=== PATIENT | male | born 1940 | race Caucasian/White ===

== ENCOUNTER → 2016-08-24 | Outpatient (CLI) | payer MEDICARE ==
[~2016-08-24] MED LIST: ALB0.5V IH; AMIO400T5 PO; APIX5TAB2 PO; ASP325T PO; ASP81CT PO; ATOR10TA PO; AZIT500T PO; BENZ-13 PO; BUDE1AMP IH; CLOP75TA PO; DRON400T PO; FOLI0.4T2 PO; HYDR-2997 PO; LISI-594 PO; METH4TAB PO; METO50TA7 PO; MULT-418 PO; OMG1KC PO; RT-ALBUTEROL SULF 2.5 MG/3 ML PRE-MIX VIAL INH ONE
== END ==
LOC: RT 09:59
PROVIDERS: ATTEND Nurse Practitioner
DX: R05 Cough (principal)
CPT/HCPCS: 94060; 94640; 94726; 94729

== ENCOUNTER 2017-02-25 12:22 | Emergency (ER) | payer MEDICARE ==
[~2017-02-25] VITALS: Ht 177.8 cm; Wt 72.6 kg
[~2017-02-25 12:22] MED LIST changes: -RT-ALBUTEROL SULF 2.5 MG/3 ML PRE-MIX VIAL INH ONE
[2017-02-25] MEDS ORDERED: NS IV 1000 ML 1,000 ML IV ONE (13:27)
[2017-02-25] MEDS ORDERED: morphine INJ 10 MG/ML 1ML (SYR OR VIAL) IVP STA (13:27)
[2017-02-25 13:38] LABS: BASOPHILS % (AUTO) 0 % (0-10); EOSINOPHILS # (AUTO) 0.5 10^3/uL (0.0-0.3); EOSINOPHILS % (AUTO) 6 % (0-10); LYMPHOCYTES # (AUTO) 1.2 X 10^3 (1.0-4.0); LYMPHOCYTES % (AUTO) 15 % (12-44); MEAN CORPUSCULAR HEMOGLOBIN 32 PG (25-34); MEAN CORPUSCULAR HGB CONC 34 G/DL (32-36); MEAN CORPUSCULAR VOLUME 97 FL (80-99); MEAN PLATELET VOLUME 9.8 FL (7.4-10.4); MONOCYTES # (AUTO) 0.7 X 10^3 (0.0-1.0); MONOCYTES % (AUTO) 8 % (0-12); NEUTROPHILS # (AUTO) 5.7 X 10^3 (1.8-7.8); NEUTROPHILS % (AUTO) 70 % (42-75); PLATELET COUNT 199 10^3/uL (130-400); RED BLOOD COUNT 4.41 10^6/uL (4.35-5.85); RED CELL DISTRIBUTION WIDTH 13.5 % (10.0-14.5)
[2017-02-25 13:56] LABS: ALANINE AMINOTRANSFERASE 13 U/L (0-55); ALBUMIN 3.9 GM/DL (3.2-4.5); ANION GAP 9 MMOL/L (5-14); ASPARTATE AMINO TRANSFERASE 15 U/L (5-34); BILIRUBIN,TOTAL 1.4 MG/DL (0.1-1.0); BLOOD UREA NITROGEN 26 MG/DL (7-18); BUN/CREATININE RATIO 25; CALCIUM 9.1 MG/DL (8.5-10.1); CARBON DIOXIDE 21 MMOL/L (21-32); CHLORIDE 108 MMOL/L (98-107); CREATININE SERUM 1.04 MG/DL (0.60-1.30); GFR ESTIMATED > 60; GLUCOSE 108 MG/DL (70-105); POTASSIUM 4.6 MMOL/L (3.6-5.0); SODIUM 138 MMOL/L (135-145); TOTAL PROTEIN 7.1 GM/DL (6.4-8.2)
--- NOTE | 2017-02-25 13:56 | ED GU-Male ---
General Chief Complaint: Abdominal/GI Problems Stated Complaint: HERNIA Nursing Triage Note: PT C/O RIGHT INGUINAL HERNIA, PAIN BECOMING SEVERE 2 HOURS AGO. Source: patient, other (Dr. Armstrong) Exam Limitations: no limitations History of Present Illness Time seen by provider: 13:12 Initial Comments 77-year-old male patient presents to the emergency Department with reports of right inguinal hernia. Patient states the hernia has been present for several years, but he has always been able to reduce it. 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 Unable to reduce the hernia. Timing/Duration: constant, other (2 hours prior to arrival) Location: groin (right groin) Radiation: scrotal Activities at Onset: none Prior Genitourinary Problems: similar symptoms Modifying Factors: Worsens With Movement, Worsens With Palpation Allergies and Home Medications Allergies Coded Allergies: ticlopidine (Verified Allergy, Unknown, 08/20/06) Home Medications Albuterol Sulfate 2.5 Mg/0.5 Ml Vial.neb, 2.5 MG IH Q4H, #1 Prescribed by: SISI ALCALA on 07/16/15126 Apixaban 5 Mg Tablet, 5 MG PO, (Reported) Aspirin 325 Mg Tab, 325 MG PO DAILY, (Reported) Atorvastatin Calcium 10 Mg Tablet, 5 MG PO DAILY, (Reported) Azithromycin 500 Mg Tablet, 500 MG PO DAILY, #5 FOR INFECTION Prescribed by: SISI ALCALA on 07/16/15126 Benzonatate 100 Mg Capsule, 1-2 TAB PO TID, #30 Prescribed by: SISI ALCALA on 07/16/15 012 Budesonide 1 Mg/2 Ml Ampul.neb, 1 MG IH BID, #1 Prescribed by: SISI ALCALA on 07/16/15 012 Dronedarone Hydrochloride 400 Mg Tablet, 400 MG PO DAILY, (Reported) Folic Acid 0.4 Mg Tablet, 0.4 MG PO DAILY, (Reported) Hydrocodone Bit/Acetaminophen 1 Tab Tablet, 1-2 EACH PO Q 4 - 6 HRS PRN, #60 Prescribed by: FRANNY STAUFFER on 08/23/13 1816 Hydrocodone/Acetaminophen 1 Each Tablet, 1 EACH PO Q4H PRN for PAIN, #30 Ref 0 Prescribed by: DEQUAN WELSH on 02/25/17 1636 Lisinopril 5 Mg Tablet, 5 MG PO DAILY, (Reported) Methylprednisolone 4 Mg Tab.ds.pk, 4 MG PO UD, #1 Prescribed by: SISI ALCALA on 07/16/15 0127 [place] 3 Polyunsat Fatty Acids 1,000 Mg Cap, 1,000 MG PO DAILY, (Reported) Constitutional: No chills, No fever Respiratory: no symptoms reported Cardiovascular: no symptoms reported Gastrointestinal: see HPI, No abdominal pain, No constipation, No diarrhea, No loss of appetite, No melena, No nausea, No vomiting, other (right inguinal pain) Genitourinary: denies dysuria, denies frequency, denies flank pain, denies hematuria, pain (right inguinal pain), denies urgency Musculoskeletal: no symptoms reported Skin: no symptoms reported Psychiatric/Neurological: No Symptoms Reported All Other Systemes Reviewed Negative Unless Noted: Yes (Negative excepted noted.) Past Usyqcay-Odauxm-Jbzfgw Hx Patient Social History Recent Foreign Travel: No Contact w/Someone Who Travel: No Recent Infectious Disease Expo: No Recent Hopitalizations: Yes (2 yrs ago , stents placed) Immunizations Up To Date Tetanus Booster (TDap): Unknown Date of Pneumonia Vaccine: Aug 21, 2010 Date of Influenza Vaccine: Jun 21, 2013 Surgeries HX Surgeries: Yes (left inguinal HERNIA REPAIR, CARDIAC CATHS--STENTS X 5, CARDIAC ABLATION) Surgeries: Abdominal, Cardiac, Coronary Stent Respiratory Hx Respiratory Disorders: No Cardiovascular Hx Cardiac Disorders: Yes (STENT X5, CARDIAC ABLATION FOR ATRIAL FIB/FLUTTER) Cardiac Disorders: Atrial Fibrillation, Coronary Artery Disease, High Cholesterol, Hypertension Neurological Hx Neurological Disorders: No Reproductive System Hx Reproductive Disorders: No Genitourinary Hx Genitourinary Disorders: No Gastrointestinal Hx Gastrointestinal Disorders: Yes (right inguinal hernia) Musculoskeletal Hx Musculoskeletal Disorders: No Endocrine Hx Endocrine Disorders: No HEENT HX ENT Disorders: No Cancer Hx Cancer: No Psychosocial Hx Psychiatric Problems: No Integumentary HX Skin/Integumentary Disorder: No Blood Transfusions Hx Blood Disorders: No Reviewed Nursing Assessment Reviewed/Agree w Nursing PMH: Yes Family Medical History Significant Family History: No Pertinent Family Hx Physical Exam Vital Signs Vital Sign - Last 12Hours 02/25/17 13:09 Temp 97.4 Pulse 71 Resp 20 B/P (MAP) 171/77 Pulse Ox 98 O2 Delivery Room Air Capillary Refill : Less Than 3 Seconds General Appearance: WD/WN, no apparent distress Cardiovascular: normal peripheral pulses, regular rate, rhythm, no edema, no murmur Respiratory: lungs clear, normal breath sounds, no respiratory distress Gastrointestinal: normal bowel sounds, non tender, soft, no organomegaly, No distended, hernia (reducible umbilical hernia w/o tenderness.) Male: No erythema, inguinal tenderness (large right inguinal hernia (extending into the rt scrotum) with tenderness. Small left inguinal hernia.) Back: normal inspection Extremities: no pedal edema, normal capillary refill Neurologic/Psychiatric: alert, normal mood/affect, oriented x 3 Skin: normal color, warm/dry Progress/Results/Core Measures Results/Orders Lab Results Laboratory Tests Test 02/25/17 13:25 02/25/17 13:44 Range/Units White Blood Count 8.0 4.3-11.0 10^3/uL Red Blood Count 4.41 4.35-5.85 10^6/uL Hemoglobin 14.3 13.3-17.7 G/DL Hematocrit 43 40-54 % Mean Corpuscular Volume 97 80-99 FL Mean Corpuscular Hemoglobin 32 25-34 PG Mean Corpuscular Hemoglobin Concent 34 32-36 G/DL Red Cell Distribution Width 13.5 10.0-14.5 % Platelet Count 199 130-400 10^3/uL Mean Platelet Volume 9.8 7.4-10.4 FL Neutrophils (%) (Auto) 70 42-75 % Lymphocytes (%) (Auto) 15 12-44 % Monocytes (%) (Auto) 8 0-12 % Eosinophils (%) (Auto) 6 0-10 % Basophils (%) (Auto) 0 0-10 % Neutrophils # (Auto) 5.7 1.8-7.8 X 10^3 Lymphocytes # (Auto) 1.2 1.0-4.0 X 10^3 Monocytes # (Auto) 0.7 0.0-1.0 X 10^3 Eosinophils # (Auto) 0.5 H 0.0-0.3 10^3/uL Basophils # (Auto) 0.0 0.0-0.1 10^3/uL Sodium Level 138 135-145 MMOL/L Potassium Level 4.6 3.6-5.0 MMOL/L Chloride Level 108 H 98-107 MMOL/L Carbon Dioxide Level 21 21-32 MMOL/L Anion Gap 9 5-14 MMOL/L Blood Urea Nitrogen 26 H 7-18 MG/DL Creatinine 1.04 0.60-1.30 MG/DL Estimat Glomerular Filtration Rate > 60 BUN/Creatinine Ratio 25 Glucose Level 108 H 70-105 MG/DL Calcium Level 9.1 8.5-10.1 MG/DL Total Bilirubin 1.4 H 0.1-1.0 MG/DL Aspartate Amino Transf (AST/SGOT) 15 5-34 U/L Alanine Aminotransferase (ALT/SGPT) 13 0-55 U/L Alkaline Phosphatase 58 40-136 U/L Total Protein 7.1 6.4-8.2 GM/DL Albumin 3.9 3.2-4.5 GM/DL Urine Color YELLOW Urine Clarity CLEAR Urine pH 5 5-9 Urine Specific [place] 1.020 1.016-1.022 Urine Protein NEGATIVE NEGATIVE Urine Glucose (UA) NEGATIVE NEGATIVE Urine Ketones NEGATIVE NEGATIVE Urine Nitrite NEGATIVE NEGATIVE Urine Bilirubin NEGATIVE NEGATIVE Urine Urobilinogen NORMAL NORMAL MG/DL Urine Leukocyte Esterase 1+ H NEGATIVE Urine RBC (Auto) NEGATIVE NEGATIVE Urine RBC NONE /HPF Urine WBC 0-2 /HPF Urine Crystals NONE /LPF Urine Bacteria NEGATIVE /HPF Urine Casts NONE /LPF Urine Mucus NEGATIVE /LPF Urine Culture Indicated NO My Orders Orders - DEQUAN WELSH Cbc With Automated Diff (02/25/17 13:27) Comprehensive Metabolic Panel (02/25/17 13:27) Ua Culture If Indicated (02/25/17 13:27) Saline Lock/Iv-Start (02/25/17 13:27) Morphine Injection (Morphine Injection (02/25/17 13:27) Ns Iv 1000 Ml (Sodium Chloride 0.9%) (02/25/17 13:27) Ct Abdomen/Pelvis W (02/25/17 13:27) Iohexol Injection (Omnipaque 350 Mg/Ml 1 (02/25/17 14:00) Ns (Ivpb) (Sodium Chloride 0.9% Ivpb Bag (02/25/17 14:00) Morphine Injection (Morphine Injection (02/25/17 14:00) Iohexol Injection (Omnipaque 350 Mg/Ml 1 (02/25/17 14:30) Ns (Ivpb) (Sodium Chloride 0.9% Ivpb Bag (02/25/17 14:30) Medications Given in ED Current Medications Medications Dose Ordered Sig/Ena Route Start Time Stop Time Status Last Admin Dose Admin Iohexol 100 ml ONCE ONCE IV 02/25/17 14:00 02/25/17 14:50 DC 02/25/17 12:56 100 ML Iohexol 100 ml ONCE ONCE IV 02/25/17 14:30 02/25/17 14:31 DC 02/25/17 14:31 100 ML Morphine Sulfate 4 mg ONCE ONCE IVP 02/25/17 14:00 02/25/17 14:01 DC 02/25/17 13:56 4 MG Sodium Chloride 100 ml ONCE ONCE IV 02/25/17 14:30 02/25/17 14:31 DC 02/25/17 14:31 100 ML Sodium Chloride 1,000 ml @ 0 mls/hr Q0M ONCE IV 02/25/17 13:27 02/25/17 13:30 DC 02/25/17 13:34 1,000 MLS/HR Vital Signs/I&O Vital Sign - Last 12Hours 02/25/17 02/25/17 13:09 17:15 Temp 97.4 Pulse 71 69 Resp 20 16 B/P (MAP) 171/77 Pulse Ox 98 97 O2 Delivery Room Air Room Air Blood Pressure Mean: 108 Diagnostic Imaging Diagonstic Imaging: CT Plain Films/CT/US/NM/MRI: abdomen, pelvis Comments FINDINGS: By history, patient has had a prior repair of an inguinal hernia on the right. There are surgical coils in the region of the right inguinal canal. Furthermore, there appears to be a lengthy segment of bladder extending through the right inguinal canal and towards the scrotum. This portion of the bladder measures approximately 3.1 x 3.9 x 10.0 cm in maximum AP transverse and longitudinal dimensions. The intrapelvic portion of the bladder is generally unremarkable. There is no acute abnormality in the abdomen or pelvis noted otherwise. There are numerous diverticula involving the sigmoid and descending colon but there is no evidence for an acute diverticulitis. There is a portion of the sigmoid colon extending towards the left inguinal canal but there is no incarceration or obstruction of the bowel in this area. The appendix is not abnormally thickened. There is no pelvic mass or free fluid collection noted. The prostate gland is enlarged, measuring 5.2 cm in maximum transverse diameter (normal 5 cm or less). The liver, spleen, pancreas, adrenals, gallbladder, kidneys, aorta and inferior vena cava are unremarkable for an acute abnormality. There is a small calculus within the gallbladder but there is no sign of acute cholecystitis. The stomach is not well-distended and consequently difficult to assess. The lung bases are generally clear. The bone window show no evidence for a fracture or for a destructive lesion. IMPRESSION: 1. There is a portion of the bladder extending into the right inguinal canal. The intrapelvic portion of the bladder shows no abnormality. 2. There is no acute abnormality of the abdomen or pelvis noted otherwise. 3. There is diverticulosis of the sigmoid and descending colon. A portion of the sigmoid colon does extend towards the inguinal canal on the left but there is no incarceration or obstruction of the bowel in this area. 4. There is cholelithiasis without evidence for acute cholecystitis. 5. These results will be discussed with Dequan LUCAS. Dictated on workstation # [id number] Reviewed: Reviewed by Me (radiology report reviewed by me) Departure Communication Progress Notes patient was given a total of 10 mg of morphine IV. Right inguinal hernia was reduced without difficulty. patient reports improvement in pain immediately after reduction of the hernia. Laboratory findings, diagnostic study findings, and exam findings discussed with Dr. Hsieh. Dr. Hsieh recommends follow-up in his office on Monday to schedule outpatient inguinal hernia repair for Monday. All laboratory findings, diagnostic study findings, and recommendations by Dr. Hsieh were discussed with the patient. Patient reports pain is greatly improved after reduction of the right inguinal hernia. Plan for discharge to home. All return precautions were discussed with the patient as described in the discharge instructions of this report. Patient voices understanding and agrees with the treatment plan. Upon dsch patient was noted to become lightheaded with standing. Patient was monitored with no changes in vital signs. Patient states he is feeling much better after lying down. Patient refuses any further testing and states he wants to be dsch to home. Patient states he thinks symptoms are related to the morphine and standing too quickly. Dr. Armstrong states he will stay with patient this evening. I have advised the patient that if symptoms worsen or if he has any other concerns, he is to return immediately to the emergency department. Patient voices understanding. Impression Impression: Primary Impression: Recurrent right inguinal hernia Additional Impression: incidental cholelithiasis Disposition: HOME, SELF-CARE Condition: Improved Departure-Patient Inst. Decision time for Depature: 16:23 Referrals: BRYON MARIN MD (PCP/Family) Primary Care Physician Patient Instructions: Groin Hernia (DC) Add. Discharge Instructions: All discharge instructions reviewed with patient and/or family. Voiced understanding. Medications as instructed. Hold aspirin. Follow-up with Dr. Hsieh Monday at 1 o'clock in his office for recheck and scheduling outpatient surgery. Return to the emergency department for worsened pain, mass in the groin, fever, difficulty with urination, inability to urinate, inability to have a bowel movement, vomiting, abdominal swelling, or any other concerns. Scripts Hydrocodone/Acetaminophen (Hydrocodon -Acetaminophen 5-325) 1 Each Tablet 1 EACH PO Q4H Y for PAIN, #30 TAB 0 Refills Prov: DEQUAN WELSH 02/25/17 DEQUAN WELSH Feb 25, 2017 13:56
[2017-02-25] MEDS ORDERED: IOHEXOL 350 MG/ML 100 ML (OMNIPAQUE 350) VIAL IV ONE ×2 (14:00→14:30)
[2017-02-25] MEDS ORDERED: NS 100 ML (IVPB) BAG IV ONE ×2 (14:00→14:30)
[2017-02-25] MEDS ORDERED: morphine INJ 10 MG/ML 1ML (SYR OR VIAL) IVP ONE (14:00)
[2017-02-25 14:03] LABS: BILIRUBIN,URINE NEGATIVE (NEGATIVE); KETONES,URINE NEGATIVE (NEGATIVE); LEUKOCYTE ESTERASE ,URINE 1+ (NEGATIVE); NITRITE,URINE NEGATIVE (NEGATIVE); PH,URINE 5 (5-9); PROTEIN,URINE NEGATIVE (NEGATIVE); UROBILINOGEN,URINE NORMAL (NORMAL)
[2017-02-25 14:21] LABS: WBC,URINE 0-2 /HPF
--- NOTE | 2017-02-25 15:11 | Diagnostic Imaging Report ---
PROCEDURE: CT abdomen and pelvis with contrast. TECHNIQUE: Multiple contiguous axial images were obtained through the abdomen and pelvis after administration of intravenous contrast. INDICATION: Abdominal pain previous hernia repair COMPARISON: There are no prior studies available for comparison. FINDINGS: By history, patient has had a prior repair of an inguinal hernia on the right. There are surgical coils in the region of the right inguinal canal. Furthermore, there appears to be a lengthy segment of bladder extending through the right inguinal canal and towards the scrotum. This portion of the bladder measures approximately 3.1 x 3.9 x 10.0 cm in maximum AP transverse and longitudinal dimensions. The intrapelvic portion of the bladder is generally unremarkable. There is no acute abnormality in the abdomen or pelvis noted otherwise. There are numerous diverticula involving the sigmoid and descending colon but there is no evidence for an acute diverticulitis. There is a portion of the sigmoid colon extending towards the left inguinal canal but there is no incarceration or obstruction of the bowel in this area. The appendix is not abnormally thickened. There is no pelvic mass or free fluid collection noted. The prostate gland is enlarged, measuring 5.2 cm in maximum transverse diameter (normal 5 cm or less). The liver, spleen, pancreas, adrenals, gallbladder, kidneys, aorta and inferior vena cava are unremarkable for an acute abnormality. There is a small calculus within the gallbladder but there is no sign of acute cholecystitis. The stomach is not well-distended and consequently difficult to assess. The lung bases are generally clear. The bone window show no evidence for a fracture or for a destructive lesion. IMPRESSION: 1. There is a portion of the bladder extending into the right inguinal canal. The intrapelvic portion of the bladder shows no abnormality. 2. There is no acute abnormality of the abdomen or pelvis noted otherwise. 3. There is diverticulosis of the sigmoid and descending colon. A portion of the sigmoid colon does extend towards the inguinal canal on the left but there is no incarceration or obstruction of the bowel in this area. 4. There is cholelithiasis without evidence for acute cholecystitis. 5. These results were discussed with Amberly LUCAS. Dictated by: Dictated on workstation # [id number]
[2017-02-25] MEDS ORDERED: HYDR-3812 PO (16:36)
[2017-02-25 17:15] VITALS: BP 170/93
--- OUTSIDE RECORDS SUMMARY | 2017-02-28 09:32 | XMS REPORT | Continuity of Care Document ---
Author Author [facility] Organization 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 Ot R05 COUGH 09/02/2016 ZURI HENNESSY APRN Ot R05 COUGH 09/12/2016 ZURI HENNESSY FORMING MACHINE TENDER Ot R05 COUGH 10/17/2016 ZURI HENNESSY FORMING MACHINE TENDER Ot R05 COUGH 10/20/2016 ZURI HENNESSY FORMING MACHINE TENDER Ot R05 COUGH Procedures Results Test Result Range Complete blood count (CBC) with automated white blood cell (WBC) differential - 02/25/17 13:25 Blood leukocytes automated count (number/volume) 8.0 10*3/ uL 4.3-11.0 Blood erythrocytes automated count (number/volume) 4.41 10*6 /uL 4.35-5.85 Venous blood hemoglobin measurement (mass/volume) 14.3 g/dL 13.3-17.7 Blood hematocrit (volume fraction) 43 % 40-54 Automated erythrocyte mean corpuscular volume 97 [foz_us] 80-99 Automated erythrocyte mean corpuscular hemoglobin (mass per erythrocyte) 32 pg 25-34 Automated erythrocyte mean corpuscular hemoglobin concentration measurement ( mass/volume) 34 g/dL 32-36 Automated erythrocyte distribution width ratio 13.5 % 10.0-14.5 Automated blood platelet count (count/volume) 199 10*3/uL 130-400 Automated blood platelet mean volume measurement 9.8 [foz_us ] 7.4-10.4 Automated blood neutrophils/100 leukocytes 70 % 42-75 Automated blood lymphocytes/100 leukocytes 15 % 12-44 Blood monocytes/100 leukocytes 8 % 0-12 Automated blood eosinophils/100 leukocytes 6 % 0-10 Automated blood basophils/100 leukocytes 0 % 0-10 Blood neutrophils automated count (number/volume) 5.7 10*3 1.8-7.8 Blood lymphocytes automated count (number/volume) 1.2 10*3 1.0-4.0 Blood monocytes automated count (number/volume) 0.7 10*3 0.0-1.0 Automated eosinophil count 0.5 10*3/uL 0.0-0.3 Automated blood basophil count (count/volume) 0.0 10*3/uL 0.0-0.1 Comprehensive metabolic panel - 02/25/17 13:25 Serum or plasma sodium measurement (moles/volume) 138 mmol/ L 135-145 Serum or plasma potassium measurement (moles/volume) 4.6 mmol/L 3.6-5.0 Serum or plasma chloride measurement (moles/volume) 108 mmol /L 98-107 Carbon dioxide 21 mmol/L 21-32 Serum or plasma anion gap determination (moles/volume) 9 mmol/L 5-14 Serum or plasma urea nitrogen measurement (mass/volume) 26 mg/dL 7-18 Serum or plasma creatinine measurement (mass/volume) 1.04 mg /dL 0.60-1.30 Serum or plasma urea nitrogen/creatinine mass ratio 25 NRG Serum or plasma creatinine measurement with calculation of estimated glomerular filtration rate > NRG Serum or plasma glucose measurement (mass/volume) 108 mg/dL 70-105 Serum or plasma calcium measurement (mass/volume) 9.1 mg/dL 8.5-10.1 Serum or plasma total bilirubin measurement (mass/volume) 1.4 mg/dL 0.1-1.0 Serum or plasma alkaline phosphatase measurement (enzymatic activity/volume) 58 U/L 40-136 Serum or plasma aspartate aminotransferase measurement (enzymatic activity/ volume) 15 U/L 5-34 Serum or plasma alanine aminotransferase measurement (enzymatic activity/volume ) 13 U/L 0-55 Serum or plasma protein measurement (mass/volume) 7.1 g/dL 6.4-8.2 Serum or plasma albumin measurement (mass/volume) 3.9 g/dL 3.2-4.5 Complete urinalysis with reflex to culture - 02/25/17 13:44 Urine color determination YELLOW NRG Urine clarity determination CLEAR NRG Urine pH measurement by test strip 5 5- 9 Specific gravity of urine by test strip 1.020 1.016-1.022 Urine protein assay by test strip, semi-quantitative NEGATIVE NEGATIVE Urine glucose detection by automated test strip NEGATIVE NEGATIVE Erythrocytes detection in urine sediment by light microscopy NEGATIVE NEGATIVE Urine ketones detection by automated test strip NEGATIVE NEGATIVE Urine nitrite detection by test strip NEGATIVE NEGATIVE Urine total bilirubin detection by test strip NEGATIVE NEGATIVE Urine urobilinogen measurement by automated test strip (mass/volume) NORMAL NORMAL Urine leukocyte esterase detection by dipstick 1+ NEGATIVE Automated urine sediment erythrocyte count by microscopy (number/high power field) NONE NRG Automated urine sediment leukocyte count by microscopy (number/high power field ) [HPF] NRG Bacteria detection in urine sediment by light microscopy NEGATIVE NRG Crystals detection in urine sediment by light microscopy NONE NRG Casts detection in urine sediment by light microscopy NONE NRG Mucus detection in urine sediment by light microscopy NEGATIVE NRG Complete urinalysis with reflex to culture NO NRG Encounters ACCT No. Visit Date/Time Discharge Status Pt. Type Provider Facility Loc./Unit Complaint [id number] 02/25/2017 12:23:00 2016 17:15:00 DIS Emergency DEQUAN JAMISON [facility] ER HERNIA [id number] 07/15/2015 23:20:00 2014 01:39:00 DIS Emergency CARI LUNA SISI K [facility] ER [id number] 11/13/2013 12:49:00 2013 23:59:59 CLS Outpatient [id number] 08/23/2013 16:26:00 2013 18:22:00 DIS Emergency [id number] 08/24/2016 09:59:00 ACT Outpatient ZURI HENNESSY APRN [facility] RT CHRONIC COUGH [id number] 08/11/2016 09:46:00 ACT Outpatient ZURI HENNESSY APRN [facility] RAD CHRONIC COUGH
== END 2017-02-25 17:15 | disposition home or self-care (01) ==
LOC: EDUNIT# 12:22 → ER 12:23
DX: Z95.5 Presence of coronary angioplasty implant and graft; I48.92 Unspecified atrial flutter; E78.00 Pure hypercholesterolemia, unspecified; Z79.82 Long term (current) use of aspirin; I25.10 Atherosclerotic heart disease of native coronary artery without angina pectoris; Z79.01 Long term (current) use of anticoagulants; I10 Essential (primary) hypertension; K40.90 Unilateral inguinal hernia, without obstruction or gangrene, not specified as recurrent; K80.20 Calculus of gallbladder without cholecystitis without obstruction; I48.91 Unspecified atrial fibrillation
CPT/HCPCS: 36415; 74177; 80053; 81000; 85025; 96361; 96374

== ENCOUNTER 2017-03-06 12:40 | Outpatient (CLI) | payer MEDICARE ==
[~2017-03-06] VITALS: Ht 177.8 cm; Wt 74.9 kg
[~2017-03-06 12:40] MED LIST changes: +HYDR-3812 PO
[2017-03-06] MEDS ORDERED: LISI10TA2 PO (12:57)
[2017-03-06] MEDS ORDERED: FOLI1TAB24 PO (12:57)
[2017-03-06] MEDS ORDERED: ATOR10TA66 PO (12:57)
[2017-03-06 13:01] VITALS: BP 115/67
== END 2017-03-06 13:31 | disposition home or self-care (01) ==
LOC: PREOP 12:40
PROVIDERS: ATTEND Surgery
DX: Z01.818 Encounter for other preprocedural examination (principal); Z11.2 Encounter for screening for other bacterial diseases; K40.90 Unilateral inguinal hernia, without obstruction or gangrene, not specified as recurrent
CPT/HCPCS: 87081

== ENCOUNTER 2017-03-09 07:30 | Day surgery (SDC) | payer MEDICARE ==
[~2017-03-09] VITALS: Ht 177.8 cm; Wt 74.9 kg
[~2017-03-09 07:30] MED LIST changes: +ATOR10TA66 PO; +FOLI1TAB24 PO; +LISI10TA2 PO
--- NOTE | 2017-03-09 08:05 | Progress Note-Pre Operative ---
Pre-Operative Progress Note H&P Reviewed The H&P was reviewed, patient examined and no changes noted. Date Seen by Provider: Mar 09, 2017 Time Seen by Provider: 08:04 Date H&P Reviewed: Mar 09, 2017 Time H&P Reviewed: 08:04 Pre-Operative Diagnosis: right inguinal hernia ORVILLE SULLIVAN DO Mar 09, 2017 08:05
[2017-03-09] MEDS ORDERED: ceFAZolin 1,000 MG (ANCEF) VIAL ONE (08:12)
[2017-03-09] MEDS ORDERED: NS (IVPB) 50 ML ONE (08:12)
[2017-03-09] MEDS: LACTATED RINGERS 1,000 ML IV PRN ×2 (08:29→10:25)
[2017-03-09] MEDS ORDERED: BUPIVACAINE 0.5% 30 ML (SENSORCAINE) VIAL ONE (08:35)
[2017-03-09] MEDS ORDERED: LIDOCAINE 1% INJ 20 ML (XYLOCAINE) VIAL ONE (08:35)
[2017-03-09] MEDS ORDERED: proPOfol 200 MG/20 ML (DIPRIVAN) VIAL IV ONE (08:45)
[2017-03-09] MEDS ORDERED: DEXAMETHASONE PF 10 MG/ML (DECADRON) VIAL ONE (08:45)
[2017-03-09] MEDS ORDERED: LACTATED RINGERS 1,000 ML IV ONE ×2 (08:45→10:41)
[2017-03-09] MEDS ORDERED: LIDOCAINE PF 2% 5 ML (XYLOCAINE) VIAL ONE (08:45)
[2017-03-09] MEDS ORDERED: SEVOFLURANE (ULTANE) 15 ML INHAL SOLN ONE ×2 (08:45→11:11)
[2017-03-09] MEDS ORDERED: ceFAZolin 1 GM/NS 50 ML IVPB IV ONE ×2 (08:45)
[2017-03-09] MEDS ORDERED: CATHETER FLUSH 10 ML SYR IV PRN (08:45)
[2017-03-09] MEDS ORDERED: fentaNYL INJECTION 100 MCG/2 ML AMP ONE (08:45)
[2017-03-09] MEDS ORDERED: ONDANSETRON 4 MG/2 ML (SDV) Z0FRAN ONE (08:45)
[2017-03-09] MEDS ORDERED: MIDAZOLAM 2 MG/2 ML (VERSED) VIAL ONE (08:45)
[2017-03-09 09:30] VITALS: BP 122/83
[2017-03-09] MEDS ORDERED: HYDR-3812 PO (11:17)
[2017-03-09] MEDS ORDERED: DOCU-143 PO (11:17)
--- NOTE | 2017-03-09 11:19 | Discharge Inst-Simple/Standard ---
Discharge Inst-Standard Discharge Medications New, Converted or Re-Newed RX: RX on Chart Patient Instructions/Follow Up Plan of Care/Instructions/FU: Follow up with Dr. Hsieh in 2 weeks Take medication as directed. You can apply ice to area for 10 minutes on and 10 minutes off in the next 24 to 48 hours. Hold aspirin for 3 days Activity as Tolerated: No Discharge Diet: No Restrictions Other Inst to Patient Follow up Appt: Make appointment for 2 weeks. Instructions: No lifting greater than 10 pounds. No strenuous activity. May shower in 24 hours, no tub bath or soaking. Use incentive spirometer at home as directed. No Smoking Skin/Wound Care: May remove bandages. You need to leave the glue over incision on they will fall off on their own. Symptoms to Report: Appetite Changes, Extremity Discoloration, Numbness/Tingling, Swelling Increased , Bleeding Excessive, Eyesight Changes, Pain Increased, Urine Color Change, Constipation(Persistent), Fever over 101 degree F, Pain/Pressure in chest, Urinating Difficulty, Cough Up/Vomit Blood, Heart Beat Irreg/Pounding, Pain/ Pressure in jaw, Vaginal Bleeding Increase, Cramps in feet or legs, Lightheadedness, Pain/Pressure in shoulder, Diarrhea(Persistent), Memory Changes Suddenly, Questions/Concerns, Weight gain consecutive days, Dizziness/ Fainting, Nausea/Vomiting, Shortness of Breath, Weight gain over 2 pounds If questions or concerns contact your physician Or seek help at emergency department. AIDAN GONZALEZ APRN Mar 09, 2017 11:19 am
[2017-03-09] MEDS ORDERED: ONDANSETRON 4 MG/2 ML (SDV) Z0FRAN IVP PRN (11:30)
[2017-03-09] MEDS ORDERED: morphine INJ 10 MG/ML 1ML (SYR OR VIAL) IVP PRN (11:30)
[2017-03-09] MEDS ORDERED: morphine INJ 4 MG/ML 1 ML (VIAL/SYRINGE) ONE (11:56)
[2017-03-09 12:15] VITALS: BP 151/90
--- NOTE | 2017-03-09 12:15 | Progress Note-Post Operative ---
Post-Operative Progess Note Surgeon (s)/Mechanical Facilities Technician (s) Surgeon ORVILLE SULLIVAN DO Mechanical Facilities Technician: Dr. Fowler Pre-Operative Diagnosis recurrent right inguinal hernia Post-Operative Diagnosis direct and indirect recurrent right inguinal hernia Procedure & Operative Findings Date of Procedure 03/09/17 Procedure Performed/Findings open right inguinal hernia repair with mesh Anesthesia Type general Estimated Blood Loss Estimated blood loss (mL): minimal Specimens/Packing Specimens Removed none ORVILLE SULLIVAN DO Mar 09, 2017 12:15 pm
[2017-03-09 12:45] VITALS: BP 142/91
[2017-03-09] MEDS ORDERED: HYDROcodone/APAP 5 MG/325 MG (LORTAB) TAB PO ONE (12:45)
[2017-03-09 13:15] VITALS: BP 132/81
[2017-03-09 14:07] VITALS: BP 132/81
--- NOTE | 2017-03-10 13:24 | OPERATIVE REPORT ---
PROCEDURE PHYSICIAN: ORVILLE SULLIVAN DATE OF PROCEDURE: 03/09/2017 PREOPERATIVE DIAGNOSIS: Recurrent right inguinal hernia. POSTOPERATIVE DIAGNOSIS: Direct and indirect recurrent right inguinal hernia. PROCEDURE: Open right inguinal hernia repair with mesh. SURGEON: Мария. HIGH SCHOOL SOCIAL SCIENCE TEACHER: Dr. Fowler, assisted in retraction, dissection, and identification of the anatomy. ANESTHESIA: General. ESTIMATED BLOOD LOSS: Minimal. COMPLICATIONS: None. INDICATIONS: The patient is a 77-year-old male with a recurrent right inguinal hernia. He had a previous hernia repair laparoscopically. He has a large right inguinal hernia that was able to be reduced previously and he was discussed the risks and benefits of the procedure and wishes to proceed with procedure. Consent was signed on the chart. PROCEDURE: The patient was taken to the operating suite. He was prepped in sterile fashion. A surgical pause was performed. Right lower quadrant incision was made and dissection was taken down to the external oblique. The external oblique was then opened up down through the external ring and the anatomy was defined. There were several spiral metal tacks that were present. Several these were removed that we were able to visualize and were removed without difficulty. The spermatic cord was then isolated and at the base of the internal ring and also at the floor, there were both a direct defect with a large amount of fat protruding down out through this, also a small amount of fat protruding at the internal ring as well. This was able to be reduced without difficulty. Both places using 0 Vicryl, the floor and the internal ring defects were closed. Appropriate mesh was then cut to size and secured to Parviz's ligament and then placed incorporating the mesh around the spermatic cord. Adequate coverage was present. Hemostasis had been achieved. Copious amounts of irrigation were used to irrigate the wound. The external oblique was then closed re-creating the external ring. The subcutaneous tissues were then reapproximated using 3-0 Vicryl. The skin was then closed using 4-0 Vicryl in a running subcuticular fashion. The area was then washed and dried and Dermabond was placed over the incision. The patient tolerated the procedure well without any complications and taken to the recovery room in stable condition. Job ID: [id number] Dictated Date: 03/09/2017 14:28:14 Director Asset Date: 03/10/2017 13:14:56 / lizeth
--- OUTSIDE RECORDS SUMMARY | 2017-03-16 02:48 | XMS REPORT | Continuity of Care Document ---
Author Author [facility] Organization [facility] Address Unknown Phone Unavailable Allergies Active Description Code Type Severity Reaction Onset Reported/Identified Relationship to Patient Clinical Status Yes ticlopidine [id number] Drug Allergy Unknown N/A 03/06/2017 Medications Problems Date Dx Coded Attending Type Code Diagnosis Diagnosed By 07/16/2015 SISI ALCALA DO Ot F17.211 07/16/2015 SISI ALCALA DO Ot J40 08/11/2016 ZURI HENNESSY MEDICAL SOCIAL CONSULTANT Ot R05 COUGH 08/26/2016 ZURI HENNESSY MEDICAL SOCIAL CONSULTANT Ot R05 COUGH 09/02/2016 ZURI HENNESSY MEDICAL SOCIAL CONSULTANT Ot R05 COUGH 09/12/2016 ZURI HENNESSY MEDICAL SOCIAL CONSULTANT Ot R05 COUGH 10/17/2016 ZURI HENNESSY MEDICAL SOCIAL CONSULTANT Ot R05 COUGH 10/20/2016 ZURI HENNESSY MEDICAL SOCIAL CONSULTANT Ot R05 COUGH 02/28/2017 DEQUAN JAMISON Ot E78.00 PURE HYPERCHOLESTEROLEMIA, UNSPECIFIED 02/28/2017 DEQUAN JAMISON Ot I10 ESSENTIAL (PRIMARY) HYPERTENSION 02/28/2017 DEQUAN JAMISON Ot I25.10 ATHSCL HEART DISEASE OF [place] CORONARY 02/28/2017 DEQUAN JAMISON Ot I48.91 UNSPECIFIED ATRIAL FIBRILLATION 02/28/2017 DEQUAN JAMISON Ot I48.92 UNSPECIFIED ATRIAL FLUTTER 02/28/2017 DEQUAN JAMISON Ot K40.90 UNIL INGUINAL HERNIA, W/O OBST OR GANGR , 02/28/2017 DEQUAN JAMISON Ot K80.20 CALCULUS OF GALLBLADDER W/O CHOLECYSTITI 02/28/2017 DEQUAN JAMISON Ot Z79.01 TELEPHONE SOLICITOR SUPERVISOR (CURRENT) USE OF ANTICOAGULANT 02/28/2017 DEQUAN JAMISON Ot Z79.82 TELEPHONE SOLICITOR SUPERVISOR (CURRENT) USE OF ASPIRIN 02/28/2017 DEQUAN JAMISON Ot 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 ANGIOPLASTY IMPLANT 03/07/2017 ORVILLE SULLIVAN DO Ot K40.90 UNIL INGUINAL HERNIA, W/O OBST OR GANGR, 03/07/2017 ORVILLE SULLIVAN DO Ot Z01.818 ENCOUNTER FOR OTHER PREPROCEDURAL EXAMIN 03/07/2017 ORVILLE SULLIVAN DO Ot Z11.2 ENCOUNTER FOR SCREENING FOR OTHER BACTER 03/09/2017 ORVILLE SULLIVAN DO Ot K40.91 UNILATERAL INGUINAL HERNIA, W/O OBST OR 03/13/2017 ORVILLE SULLIVAN DO Ot E78.5 HYPERLIPIDEMIA, UNSPECIFIED 03/13/2017 ORVILLE SULLIVAN DO Ot I10 ESSENTIAL (PRIMARY) HYPERTENSION 03/13/2017 ORVILLE SULLIVAN DO Ot I25.10 ATHSCL HEART DISEASE OF [place] CORONARY 03/13/2017 ORVILLE SULLIVAN DO Ot I48.91 UNSPECIFIED ATRIAL FIBRILLATION 03/13/2017 ORVILLE SULLIVAN DO Ot J44.9 CHRONIC OBSTRUCTIVE PULMONARY DISEASE, U 03/13/2017 ORVILLE SULLIVAN DO Ot K40.91 UNILATERAL INGUINAL HERNIA, W/O OBST OR 03/13/2017 ORVILLE SULLIVAN DO Ot Z79.899 OTHER ALF (CURRENT) DRUG THERAPY 03/13/2017 ORVILLE SULLIVAN DO Ot Z87.891 PERSONAL HISTORY OF NICOTINE DEPENDENCE 03/13/2017 ORVILLE SULLIVAN DO Ot 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 ANGIOPLASTY IMPLANT Procedures Results Test Result Range Complete blood [...] urinalysis with reflex to culture NO NRG Methicillin resistant Staphylococcus aureus (MRSA) screening culture - 12:50 Methicillin resistant Staphylococcus aureus (MRSA) screening culture NEG NRG Encounters ACCT No. Visit Date/Time Discharge Status Pt. Type Provider Facility Loc./Unit Complaint [id number] 03/09/2017 07:30:00 2016 14:07:00 DIS Outpatient ORVILLE SULLIVAN DO [facility] SDC RIGHT INGUINAL HERNIA [id number] 03/06/2017 12:40:00 2016 13:31:00 DIS Outpatient ORVILLE SULLIVAN DO [facility] PREOP RIGHT INGUINAL HERNIA REPAIR [id number] 02/25/2017 12:23:00 2016 17:15:00 DIS Outpatient DEQUAN JAMISON [facility] ER HERNIA [id number] 07/15/2015 23:20:00 2014 01:39:00 DIS Emergency SISI ALCALA DO [facility] ER [id number] 11/13/2013 12:49:00 2013 23:59:59 CLS Outpatient [id number] 08/23/2013 16:26:00 2013 18:22:00 DIS Emergency [id number] 08/24/2016 09:59:00 ACT Outpatient ZURI HENNESSY APRN [facility] RT CHRONIC COUGH [id number] 08/11/2016 09:46:00 ACT Outpatient ZURI HENNESSY APRN [facility] RAD CHRONIC COUGH
== END 2017-03-09 14:07 | disposition home or self-care (01) ==
LOC: SDC 07:30
PROVIDERS: ATTEND Surgery
DX: K40.91 Unilateral inguinal hernia, without obstruction or gangrene, recurrent (principal); I25.10 Atherosclerotic heart disease of native coronary artery without angina pectoris; I10 Essential (primary) hypertension; E78.5 Hyperlipidemia, unspecified; I48.91 Unspecified atrial fibrillation; J44.9 Chronic obstructive pulmonary disease, unspecified; Z95.5 Presence of coronary angioplasty implant and graft; Z87.891 Personal history of nicotine dependence; Z79.899 Other long term (current) drug therapy
CPT/HCPCS: 94664

== ENCOUNTER 2018-05-21 10:33 | Outpatient (CLI) | payer MEDICARE ==
[~2018-05-21] VITALS: Ht 177.8 cm; Wt 69.9 kg
[~2018-05-21 10:33] MED LIST changes: +ACHD5005 PO; -BENZ-13 PO; +BENZ100C18 PO; +DOCU-143 PO; -HYDR-3812 PO
[2018-05-21 10:40] VITALS: BP 108/68
[2018-05-21] MEDS ORDERED: CHOL100048 PO (10:46)
[2018-05-21] MEDS ORDERED: ALBU0.63 IH (10:46)
[2018-05-21] MEDS ORDERED: LISI-556 PO (10:46)
[2018-05-21] MEDS ORDERED: ASPI-808 PO (10:46)
[2018-05-21] MEDS ORDERED: OMG1KC PO (10:46)
[2018-05-21] MEDS ORDERED: RT-ALBUINH IH (10:46)
== END 2018-05-21 11:13 | disposition home or self-care (01) ==
LOC: PREOP 10:33
PROVIDERS: ATTEND Surgery
DX: Z01.818 Encounter for other preprocedural examination (principal)
CPT/HCPCS: 87081

== ENCOUNTER 2018-05-24 07:52 | Day surgery (SDC) | payer MEDICARE ==
[~2018-05-24] VITALS: Ht 177.8 cm; Wt 69.9 kg
[~2018-05-24 07:52] MED LIST changes: +ALBU0.63 IH; +ASPI-808 PO; +CHOL100048 PO; +LISI-556 PO; +RT-ALBUINH IH
--- OUTSIDE RECORDS SUMMARY | 2018-05-24 07:56 | XMS REPORT | Continuity of Care Document ---
Author Author [facility] Organization [facility] Address Unknown Phone Unavailable Allergies Active Description Code Type Severity Reaction Onset Reported/Identified Relationship to Patient Clinical Status Yes ticlopidine [id number] Drug Allergy Unknown N/A 03/06/2017 Medications There is no data. Problems Date Dx Coded Attending Type Code Diagnosis Diagnosed By 06/13/2013 GOGO KELLY DO V04.81 FLU SHOT 07/16/2015 SISI ALCALA DO Ot F17.211 07/16/2015 SISI ALCALA DO Ot J40 08/11/2016 ZURI HENNESSY US ADMINISTRATIVE LAW JUDGE Ot R05 COUGH 08/26/2016 ZURI HENNESSY US ADMINISTRATIVE LAW JUDGE Ot R05 COUGH 09/02/2016 ZURI HENNESSY US ADMINISTRATIVE LAW JUDGE Ot R05 COUGH 09/12/2016 ZURI HENNESSY US ADMINISTRATIVE LAW JUDGE Ot R05 COUGH 10/17/2016 ZURI HENNESSY R US ADMINISTRATIVE LAW JUDGE Ot R05 COUGH 10/20/2016 ZURI HENNESSY US ADMINISTRATIVE LAW JUDGE Ot R05 COUGH 02/25/2017 DEQUAN JAMISON Ot E78.00 PURE HYPERCHOLESTEROLEMIA, UNSPECIFIED 02/25/2017 DEQUAN JAMISON Ot I10 ESSENTIAL (PRIMARY) HYPERTENSION 02/25/2017 DEQUAN JAMISON Ot I25.10 ATHSCL HEART DISEASE OF [place] CORONARY 02/25/2017 DEQUAN JAMISON Ot I48.91 UNSPECIFIED ATRIAL FIBRILLATION 02/25/2017 DEQUAN JAMISON Ot I48.92 UNSPECIFIED ATRIAL FLUTTER 02/25/2017 DEQUAN JAMISON Ot K40.90 UNIL INGUINAL HERNIA, W/O OBST OR GANGR, 02/25/2017 DEQUAN JAMISON Ot K80.20 CALCULUS OF GALLBLADDER W/O CHOLECYSTITI 02/25/2017 DEQUAN JAMISON Ot Z79.01 ASSISTED (CURRENT) USE OF ANTICOAGULANT 02/25/2017 DEQUAN JAMISON Ot Z79.82 ASSISTED (CURRENT) USE OF ASPIRIN 02/25/2017 DEQUAN JAMISON Ot 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 ANGIOPLASTY IMPLANT 02/28/2017 DEQUAN JAMISON Ot E78.00 PURE HYPERCHOLESTEROLEMIA, UNSPECIFIED 02/28/2017 DEQUAN JAMISON Ot I10 ESSENTIAL (PRIMARY) HYPERTENSION 02/28/2017 DEQUAN JAMISON Ot I25.10 ATHSCL HEART DISEASE OF [place] CORONARY 02/28/2017 DEQUAN JAMISON Ot I48.91 UNSPECIFIED ATRIAL FIBRILLATION 02/28/2017 DEQUAN JAMISON Ot I48.92 UNSPECIFIED ATRIAL FLUTTER 02/28/2017 DEQUAN JAMISON Ot K40.90 UNIL INGUINAL HERNIA, W/O OBST OR GANGR, 02/28/2017 DEQUAN JAMISON Ot K80.20 CALCULUS OF GALLBLADDER W/O CHOLECYSTITI 02/28/2017 DEQUAN JAMISON Ot Z79.01 PHONE MANAGER (CURRENT) USE OF ANTICOAGULANT 02/28/2017 DEQUAN JAMISON Ot Z79.82 ASSISTED (CURRENT) USE OF ASPIRIN 02/28/2017 DEQUAN JAMISON Ot 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 ANGIOPLASTY IMPLANT 03/07/2017 ORVILLE SULLIVAN DO Ot K40.90 UNIL INGUINAL HERNIA, W/O OBST OR GANGR, 03/07/2017 ORVILLE SULLIVAN DO Ot Z01.818 ENCOUNTER FOR OTHER PREPROCEDURAL EXAMIN 03/07/2017 ORVILLE SULLIVAN DO Ot Z11.2 ENCOUNTER FOR SCREENING FOR OTHER BACTER 03/09/2017 ORVILLE SULLIVAN DO Ot E78.5 HYPERLIPIDEMIA, UNSPECIFIED 03/09/2017 ORVILLE SULLIVAN DO Ot I10 ESSENTIAL (PRIMARY) HYPERTENSION 03/09/2017 ORVILLE SULLIVAN DO Ot I25.10 ATHSCL HEART DISEASE OF [place] CORONARY 03/09/2017 ORVILLE SULLIVAN DO Ot I48.91 UNSPECIFIED ATRIAL FIBRILLATION 03/09/2017 ORVILLE SULLIVAN DO Ot J44.9 CHRONIC OBSTRUCTIVE PULMONARY DISEASE, U 03/09/2017 ORVILLE SULLIVAN DO Ot K40.91 UNILATERAL INGUINAL HERNIA, W/O OBST OR 03/09/2017 ORVILLE SULLIVAN DO Ot Z79.899 OTHER ASSISTED (CURRENT) DRUG THERAPY 03/09/2017 ORVILLE SULLIVAN DO Ot Z87.891 PERSONAL HISTORY OF NICOTINE DEPENDENCE 03/09/2017 ORVILLE SULLIVAN DO Ot 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 ANGIOPLASTY IMPLANT 03/13/2017 ORVILLE SULLIVAN DO Ot E78.5 HYPERLIPIDEMIA, UNSPECIFIED 03/13/2017 ORVILLE SULLIVAN DO Ot I10 ESSENTIAL (PRIMARY) HYPERTENSION 03/13/2017 ORVILLE SULLIVAN DO Ot I25.10 ATHSCL HEART DISEASE OF [place] CORONARY 03/13/2017 ORVILLE SULLIVAN DO Ot I48.91 UNSPECIFIED ATRIAL FIBRILLATION 03/13/2017 ORVILLE SULLIVAN DO Ot J44.9 CHRONIC OBSTRUCTIVE PULMONARY DISEASE, U 03/13/2017 ORVILLE SULLIVAN DO Ot K40.91 UNILATERAL INGUINAL HERNIA, W/O OBST OR 03/13/2017 ORVILLE SULLIVAN DO Ot Z79.899 OTHER ASSISTED (CURRENT) DRUG THERAPY 03/13/2017 ORVILLE SULLIVAN DO Ot Z87.891 PERSONAL HISTORY OF NICOTINE DEPENDENCE 03/13/2017 ORVILLE SULLIVAN DO Ot 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 ANGIOPLASTY IMPLANT Procedures Code Description Performed By Performed On G0008 FLU ADMINISTRATION ( MEDICARE ONLY) 06/13/2013 Results Test Result Range Complete blood count (CBC) with automated white blood cell (WBC) differential - 02/25/17 13:25 Blood leukocytes automated count (number/volume) 8.0 10*3/uL 4.3-11.0 Blood erythrocytes automated count (number/volume) 4.41 10*6/uL 4.35-5.85 Venous blood hemoglobin measurement (mass/volume) 14.3 [...] Automated blood platelet mean volume measurement 9.8 [foz_us] 7.4-10.4 Automated blood neutrophils/100 leukocytes 70 % [...] Serum or plasma sodium measurement (moles/volume) 138 mmol/L 135-145 Serum or plasma potassium measurement (moles/volume) 4.6 mmol/L 3.6-5.0 Serum or plasma chloride measurement (moles/volume) 108 mmol/L 98-107 Carbon dioxide 21 mmol/L 21-32 Serum or plasma anion gap determination (moles/volume) 9 mmol/L 5-14 Serum or plasma urea nitrogen measurement (mass/volume) 26 mg/dL 7-18 Serum or plasma creatinine measurement (mass/volume) 1.04 mg/dL 0.60-1.30 Serum or plasma urea nitrogen/creatinine mass [...] Urine pH measurement by test strip 5 5-9 Specific gravity of urine by test strip 1.020 1.016- 1.022 Urine protein assay by test strip, semi-quantitative [...] Staphylococcus aureus (MRSA) screening culture NEG NRG Methicillin resistant Staphylococcus aureus (MRSA) screening culture - 10:45 Methicillin resistant Staphylococcus aureus (MRSA) screening culture NEG NRG Encounters ACCT No. Visit Date/Time Discharge Status Pt. Type Provider Facility Loc./Unit Complaint [id number] 03/09/2017 07:30:00 03/09/2017 14:07:00 DIS Outpatient ORVILLE SULLIVAN DO [facility] SDC RIGHT INGUINAL HERNIA [id number] 03/06/2017 12:40:00 03/06/2017 13:31:00 DIS Outpatient ORVILLE SULLIVAN DO [facility] PREOP RIGHT INGUINAL HERNIA REPAIR [id number] 02/25/2017 12:23:00 02/25/2017 17:15:00 DIS Emergency DEQUAN JAMISON [facility] ER HERNIA [id number] 08/24/2016 09:59:00 08/24/2016 23:59:59 CLS Outpatient ZURI HENNESSY APRN [facility] RT CHRONIC COUGH [id number] 08/11/2016 09:46:00 08/11/2016 23:59:59 CLS Outpatient ZURI HENNESSY APRN [facility] RAD CHRONIC COUGH [id number] 07/15/2015 23:20:00 07/16/2015 01:39:00 DIS Emergency SISI ALCALA DO [facility] ER [id number] 11/13/2013 12:49:00 11/13/2013 23:59:59 CLS Outpatient [id number] 08/23/2013 16:26:00 08/23/2013 18:22:00 DIS Emergency [id number] 05/24/2018 09:30:00 PEN Preadmit ORVILLE SULLIVAN DO [facility] SDC LEFT INGUINAL HERNIA [id number] 05/22/2018 14:18:00 Document Registration [id number] 06/13/2013 13:19:00 06/13/2013 23:59:59 CLS Outpatient GOGO KELLY DO
[2018-05-24] MEDS ORDERED: BUPIVACAINE 0.5% 30 ML (SENSORCAINE) VIAL ONE (08:19)
[2018-05-24] MEDS ORDERED: LIDOCAINE 1% INJ 20 ML 20 ML VIAL ONE (08:19)
[2018-05-24] MEDS ORDERED: LIDOCAINE PF 2% 2 ML (XYLOCAINE) VIAL ONE (08:37)
[2018-05-24] MEDS ORDERED: ROCURONIUM 10 MG/ML 5 ML SYRINGE IV ONE (08:37)
[2018-05-24] MEDS ORDERED: ONDANSETRON 4 MG/2 ML (SDV) Z0FRAN ONE (08:37)
[2018-05-24] MEDS ORDERED: DEXAMETHASONE 10 MG/ML (DECADRON) 1 ML VIAL ONE (08:37)
[2018-05-24] MEDS ORDERED: proPOfol 200 MG/20 ML (DIPRIVAN) VIAL IV ONE (08:37)
[2018-05-24] MEDS ORDERED: fentaNYL INJECTION 100 MCG/2 ML AMP ONE (08:38)
[2018-05-24] MEDS ORDERED: SEVOFLURANE (ULTANE) 15 ML INHAL SOLN ONE (08:42)
[2018-05-24] MEDS ORDERED: ceFAZolin 2 GM IV Premixed 50 ML IV ONE (08:45)
[2018-05-24 08:50] VITALS: BP 143/77
[2018-05-24] MEDS: LACTATED RINGERS 1,000 ML IV PRN ×2 (08:53→10:44)
[2018-05-24] MEDS ORDERED: GLYCOPYRROLATE 0.2 MG/ML (ROBINUL) 2 ML VIAL ONE (10:23)
[2018-05-24] MEDS ORDERED: NEOSTIGMINE 1 MG/ML 5 ML SYRINGE ONE (10:23)
--- NOTE | 2018-05-24 10:31 | Progress Note-Post Operative ---
Post-Operative Progess Note Surgeon (s)/National Insurance Officer (s) Surgeon ORVILLE SULLIVAN DO National Insurance Officer: Dr. Fowler Pre-Operative Diagnosis LEFT INGUINAL HERNIA Post-Operative Diagnosis same Procedure & Operative Findings Date of Procedure 05/24/18 Procedure Performed/Findings open left inguinal hernia repair. Anesthesia Type gen Estimated Blood Loss Estimated blood loss (mL): minimal Specimens/Packing Specimens Removed hernia sac and hernia sac content ORVILLE SULLIVAN DO May 24, 2018 10:31
[2018-05-24] MEDS ORDERED: ACHD5005 PO (10:33)
[2018-05-24] MEDS ORDERED: DOCU-143 PO (10:33)
--- NOTE | 2018-05-24 10:34 | Discharge Inst-Simple/Standard ---
Discharge Inst-Standard Discharge Medications New, Converted or Re-Newed RX: RX on Chart Patient Instructions/Follow Up Plan of Care/Instructions/FU: 3 weeks Hsieh Activity as Tolerated: No Discharge Diet: Regular Diet Other Inst to Patient Follow up Appt: Make appointment for 3 week. Instructions: No lifting greater than 10 pounds. No strenuous activity. May shower in 24 hours, no tub bath or soaking. Use incentive spirometer at home as directed. No Smoking Skin/Wound Care: You have special glue over incision it will fall off on its own. Symptoms to Report: Appetite Changes, Extremity Discoloration, Numbness/Tingling, Swelling Increased , Bleeding Excessive, Eyesight Changes, Pain Increased, Urine Color Change, Constipation(Persistent), Fever over 101 degree F, Pain/Pressure in chest, Urinating Difficulty, Cough Up/Vomit Blood, Heart Beat Irreg/Pounding, Pain/ Pressure in jaw, Vaginal Bleeding Increase, Cramps in feet or legs, Lightheadedness, Pain/Pressure in shoulder, Diarrhea(Persistent), Memory Changes Suddenly, Questions/Concerns, Weight gain consecutive days, Dizziness/ Fainting, Nausea/Vomiting, Shortness of Breath, Weight gain over 2 pounds If questions or concerns contact your physician Or seek help at emergency department. ORVILLE HSIEH DO May 24, 2018 10:34
[2018-05-24] MEDS ORDERED: morphine INJ 10 MG/ML 1ML (SYR OR VIAL) IVP ONE (11:00)
[2018-05-24] MEDS ORDERED: MEPERIDINE (DEMEROL) INJ 50 MG/ML IVP ONE (11:00)
[2018-05-24] MEDS ORDERED: ONDANSETRON 4 MG/2 ML (SDV) Z0FRAN IVP PRN (11:00)
[2018-05-24 11:45] VITALS: BP 155/81
[2018-05-24 12:15] VITALS: BP 160/88
--- NOTE | 2018-05-24 12:17 | Anesthesia-General Post-Op ---
General Patient Condition Mental Status/LOC: Same as Preop Cardiovascular: Satisfactory Nausea/Vomiting: Absent Respiratory: Satisfactory Pain: Controlled Complications: Absent Post Op Complications Complications None Follow Up Care/Instructions Patient Instructions None needed. Anesthesia/Patient Condition Patient Condition Patient is doing well, no complaints, stable vital signs, no apparent adverse anesthesia problems. No complications reported per nursing. DICKSON VERDUGO CRNA May 24, 2018 12:17
[2018-05-24 12:45] VITALS: BP 146/81
[2018-05-24] MEDS ORDERED: HYDROcodone/APAP 5 MG/325 MG (LORTAB) TAB PO ONE (13:00)
[2018-05-24 13:30] VITALS: BP 146/81
--- NOTE | 2018-05-24 13:59 | OPERATIVE REPORT ---
DATE OF SERVICE: 05/24/2018 PREOPERATIVE DIAGNOSIS: Left inguinal hernia. POSTOPERATIVE DIAGNOSIS: Direct and indirect left inguinal hernia with cord lipoma. PROCEDURE: Open left inguinal hernia repair with incarcerated fat into the hernia sac with excision of cord lipoma. SURGEON: Orville Hsieh DO ARMORING MACHINE OPERATOR: Dr. Fowler, assisted in retraction, dissection and closure. ANESTHESIA: General. ESTIMATED BLOOD LOSS: Minimal. COMPLICATIONS: None. INDICATIONS: The patient is a 78-year-old male with left inguinal hernia. He understands risks and benefits of procedure and wished to proceed with procedure. Consent was signed in the chart. PROCEDURE IN DETAIL: The patient was taken to the operating suite, was prepped and draped in sterile fashion. Surgical pause was performed. Local anesthetic was infiltrated in the left lower quadrant. An incision was made and cautery dissection was taken down to the external oblique. The external oblique was then opened down through the external ring. Hemostats were placed on the external oblique. The spermatic cord was then dissected off and dissected around at the external ring. A Mikael drain was placed around it. There was a large hernia sac present, which was dissected off of the cord. The sac was then opened. There was fat that was incarcerated through this and adhered to this, had to be dissected off so this could be reduced. This was then reduced. The hernia sac was then twisted and suture ligated and reduced. There was still a floor defect, which a 0 Vicryl was used to close the floor defect. A ProGrip mesh was then placed and tacked to Parviz's ligament and then incorporated around the spermatic cord and placed under the external ring. A few sutures were used to tack it in place as well. The subcutaneous tissues were then reapproximated using 3-0 Vicryl. The skin was then closed using 4-0 Monocryl in a running subcuticular fashion. Also, within the hernia sac, there was a small nodule that was removed as well and sent for pathology. The abdomen was then washed and dried and Skin Affix was placed over the incision. The patient tolerated the procedure well without any complications and taken to recovery room in stable condition. Job ID: [id number] DocumentID: [id number] Dictated Date: 05/24/2018 10:42:59 Brick Mason Date: 05/24/2018 13:59:09 Dictated By: ORVILLE HSIEH DO
== END 2018-05-24 13:30 | disposition home or self-care (01) ==
LOC: SDC 07:52
PROVIDERS: ATTEND Surgery
DX: K40.30 Unilateral inguinal hernia, with obstruction, without gangrene, not specified as recurrent (principal); D17.6 Benign lipomatous neoplasm of spermatic cord; I25.10 Atherosclerotic heart disease of native coronary artery without angina pectoris; I10 Essential (primary) hypertension; E78.5 Hyperlipidemia, unspecified; Z95.5 Presence of coronary angioplasty implant and graft; Z87.891 Personal history of nicotine dependence; J44.9 Chronic obstructive pulmonary disease, unspecified; Z79.82 Long term (current) use of aspirin; Z79.899 Other long term (current) drug therapy
CPT/HCPCS: 88302; 88304; 93005; 94664

== ENCOUNTER 2018-05-27 02:29 | Emergency (ER) | payer MEDICARE ==
[~2018-05-27] VITALS: Ht 177.8 cm; Wt 69.9 kg
--- NOTE | 2018-05-27 02:57 | ED Abdominal Pain ---
General Stated Complaint: POST HERNIA SURGERY/ABD PAIN Source of Information: Patient, Spouse Exam Limitations: No Limitations History of Present Illness Date Seen by Provider: May 27, 2018 Time Seen by Provider: 02:44 Initial Comments The patient presents to the ER by private conveyance with chief complaint of some epigastric abdominal cramping sensation that started about an hour ago woke him from sleep. He says it was doubling him over and he could not get any relief from it and his considered calling an ambulance but they decided to come the ER and by the time they got here it had pretty much resolved. The patient did have a left inguinal hernia repair by Dr. Hsieh, 2 days ago that was uneventful. He is having no nausea vomiting fevers chills diarrhea. He has however had no bowel movement since . They've been using Colace every day since , 2 going on 3 days ago and yesterday evening use the first dose of MiraLAX and attempt to have a bowel movement. He's had colonoscopies in the past but they were many years ago. He has a history of hypertension, hypercholesterolemia, coronary artery disease with stents. Allergies and Home Medications Allergies Coded Allergies: ticlopidine (Verified Allergy, Mild, HIVES, 05/21/18) Home Medications Albuterol Sulfate 0.63 Mg/3 Ml Vial.neb, IH BID, (Reported) Albuterol Sulfate 1 Puff Puff, 2 PUFF IH Q4H PRN for COUGH, (Reported) 1 PUFF = 90 MCG Aspirin 325 Mg Tablet, 325 MG PO DAILY, (Reported) Atorvastatin Calcium 10 Mg Tablet, 10 MG PO DAILY, (Reported) Docusate Sodium 100 Mg Capsule, 100 MG PO BID Prescribed by: ORVILLE HSIEH on 05/24/18 1033 Folic Acid 1 Mg Tablet, 5 MG PO BID, (Reported) Lisinopril 5 Mg Tablet, 5 MG PO DAILY, (Reported) [place] 3 Polyunsat Fatty Acids 1,000 Mg Cap, 1,000 MG PO DAILY, (Reported) Patient Home Medication List Home Medication List Reviewed: Yes Review of Systems Review of Systems Constitutional: No chills, No diaphoresis, No fever EENTM: No Blurred Vision, No Double Vision, No Eye Tearing Respiratory: Denies Cough, Denies Shortness of Air Cardiovascular: Denies Chest Pain, Denies Edema Gastrointestinal: See HPI; Denies Abdomen Distended; Abdominal Pain, Constipated; Denies Diarrhea, Denies Nausea Genitourinary: Denies Discharge, Denies Drainage Musculoskeletal: No back pain, No joint pain Skin: No pruritus, No rash Past Znfxspf-Hoxviy-Iodmvf Hx Patient Social History Alcohol Use: Regular Use Alcohol Beverage of Choice: [place] [employer]cre[employer] Drug Use: No Smoking Status: Former Smoker Former Smoker, Quit: Mar 06, 1977 Recent Foreign Travel: No Contact w/Someone Who Travel: No Recent Hopitalizations: No Immunizations Up To Date Tetanus Booster (TDap): Unknown Date of Pneumonia Vaccine: Jun 06, 2016 Date of Influenza Vaccine: May 14, 2018 Seasonal Allergies Seasonal Allergies: No Past Medical History Surgeries: Yes (HERNIA REPAIR, CARDIAC CATHS--STENTS X 5, CARDIAC ABLATION) Cardiac, Coronary Stent Respiratory: No Chronic Bronchitis, COPD Currently Using CPAP: No Currently Using BIPAP: No Cardiac: Yes (STENT X5, CARDIAC ABLATION FOR ATRIAL FIB/FLUTTER) Atrial Fibrillation, Coronary Artery Disease, High Cholesterol, Hypertension Neurological: No Reproductive Disorders: No Sexually Transmitted Disease: No HIV/AIDS: No Benign Prostatic Hyperpl, Kidney Stones Gastrointestinal: No Musculoskeletal: No Chronic Back Pain Endocrine: No Loss of Vision: Bilateral Hearing Impairment: Denies Cancer: No Psychosocial: No Integumentary: No Blood Disorders: No Adverse Reaction/Blood Tranf: No (N/A) Family Medical History No Pertinent Family Hx Physical Exam Vital Signs Vital Signs - First Documented 05/27/18 02:45 Temp 97.8 Pulse 68 Resp 16 B/P (MAP) 132/78 (96) Pulse Ox 99 O2 Delivery Room Air Capillary Refill : Height/Weight/BMI Height: 5'10.00" Weight: 154lbs. 2.0oz. 69.825038vs; 22.1 BMI Method:Stated General Appearance: WD/WN, no apparent distress HEENT: PERRL/EOMI, normal ENT inspection, pharynx normal Neck: non-tender, full range of motion, supple, normal inspection Respiratory: chest non-tender, lungs clear, normal breath sounds, no respiratory distress, no accessory muscle use Cardiovascular: normal peripheral pulses, regular rate, rhythm Gastrointestinal: normal bowel sounds, non tender, soft Extremities: normal range of motion, normal capillary refill Progress/Results/Core Measures Results/Orders My Orders Orders - ETELVINA ALFORD Abdomen/Kub 1view (05/27/18 02:52) Vital Signs/I&O 05/27/18 02:45 Temp 97.8 Pulse 68 Resp 16 B/P (MAP) 132/78 (96) Pulse Ox 99 O2 Delivery Room Air Progress Progress Note #1: Time: 02:55 Progress Note At this time the patient is not having any pain nor does he have a tender abdominal exam. His symptoms of constipation for the past 2-3 days in addition to recent surgery makes a postop ileus most likely. We will get a flat plate of his abdomen and observe him for a bit. If it is an ileus he could try going home on a clear liquid diet versus we can also offer him an observation stay. Progress Note #2: Time: 03:26 Progress Note The patient is still pain free and has a nontender exam. We have offered him observation stay IV fluids versus going home and drink clear liquid breakfast in the morning and continuing some gentle laxatives, fluid intake and follow up outpatient with the general surgeon and he has elected to do outpatient follow- up. Diagnostic Imaging Diagonstic Imaging: Xray Plain Films/CT/US/NM/MRI: abdomen (1 view upright KUB) Comments Constipation but no acute processes noted on a 1 view upright KUB Reviewed: Reviewed by Me Departure Impression Primary Impression: Constipation Qualified Codes: K59.00 - Constipation, unspecified Additional Impression: Ileus Disposition: 01 HOME, SELF-CARE Condition: Improved Departure-Patient Inst. Decision time for Depature: 03:26 Referrals: BRYON MARIN MD (PCP/Family) Primary Care Physician Patient Instructions: Postoperative Ileus (DC) Add. Discharge Instructions: Drink plenty of fluids starting with a clear liquid diet and if he tolerates that well without any pain or nausea you can increase that towards a more regular diet. When you're eating a regular diet you should also add MiraLAX 1 or 2 times a day. If you have not had a bowel movement for 5 days you should also have either a suppository or enema once a day. Follow-up with Dr. Hsieh as needed outpatient. If you're pain becomes unbearable or is accompanied by nausea vomiting fever or other worrisome symptoms then you should return to the ER for further evaluation. Copy Copies To 1: ORVILLE HSIEH DO; BRYON MARIN MD, TITUS J May 27, 2018 02:57
[2018-05-27 03:40] VITALS: BP 130/76
--- NOTE | 2018-05-27 06:30 | Diagnostic Imaging Report ---
INDICATION: Constipation. Abdominal pain. COMPARISON: CT dated 02/25/2017 FINDINGS: Two supine radiographic views of the abdomen were obtained and demonstrate nondistended loops of small bowel. There is no large collection of free peritoneal air. Moderate air and stool are seen scattered throughout the colon. No unexpected extraosseous calcifications or radiopaque foreign bodies are seen. Bony structures show no gross acute abnormalities. IMPRESSION: 1. Nonobstructed small bowel gas pattern. 2. Moderate colonic air and stool. Please correlate for constipation Dictated by: Dictated on workstation # [id number]
== END 2018-05-27 03:40 | disposition home or self-care (01) ==
LOC: EDUNIT# 02:29 → ER 02:30
DX: K59.00 Constipation, unspecified (principal); K56.7 Ileus, unspecified; I48.91 Unspecified atrial fibrillation; E78.00 Pure hypercholesterolemia, unspecified; I10 Essential (primary) hypertension; I25.10 Atherosclerotic heart disease of native coronary artery without angina pectoris; Z95.5 Presence of coronary angioplasty implant and graft; Z87.442 Personal history of urinary calculi; Z87.891 Personal history of nicotine dependence; Z88.8 Allergy status to other drugs, medicaments and biological substances; Z79.51 Long term (current) use of inhaled steroids; Z79.82 Long term (current) use of aspirin; Z98.890 Other specified postprocedural states
CPT/HCPCS: 74018

== ENCOUNTER → 2018-07-18 | Outpatient (CLI) | payer MEDICARE ==
--- NOTE | 2018-07-18 09:02 | Diagnostic Imaging Report ---
PROCEDURE: US Gallbladder. TECHNIQUE: Multiple real-time grayscale images were obtained over the right upper quadrant in various projections. INDICATION: Right upper quadrant pain. The liver is normal in size. No discrete liver mass is detected. The portal vein is patent and shows normal direction of flow. Gallbladder is without stones or sludge. No wall thickening or biliary ductal dilatation is seen. The pancreas was obscured by bowel gas. The right kidney is unremarkable. There is no ascites. IMPRESSION: No evidence of cholelithiasis or acute cholecystitis. Dictated by: Dictated on workstation # [id number]
== END ==
LOC: RAD 07:43
PROVIDERS: ATTEND Internal Medicine
DX: R10.11 Right upper quadrant pain (principal)
CPT/HCPCS: 76705

== ENCOUNTER 2018-07-27 09:31 | Emergency (ER) | payer MEDICARE ==
[~2018-07-27] VITALS: Ht 177.8 cm; Wt 68.0 kg
--- OUTSIDE RECORDS SUMMARY | 2018-07-27 09:36 | XMS REPORT | Encounter Summary ---
Author Author [facility] Organization [facility] Address Unknown Phone Unavailable Care Team Providers Care Craps Manager Name Role Phone Elieser Atkinson MD PCP Encounter Details Date Type Department Care Team Description 05/21/2018 Orders Only [facility] Mariana Antonio APRN Encounter for long-term Cardiovascular [address] current use [place] [address] (Primary Dx); [address] [phone] Mixed hyperlipidemia; [address] S/[place] [address] placement [phone] Social History Tobacco Use Types Packs/Day Years Used Date Former Smoker Cigarettes 1.5 30 Quit: 08/21/1974 Smokeless Tobacco: Never Used Alcohol Use Drinks/Week oz/Week Comments Yes 21 Standard 12.6 drinks or equivalent Sex Assigned at Date Recorded Not on file as of this encounter Plan of Treatment Date Type Specialty Care Team Description 11/06/2018 Office Visit Cardiology Mariana Antonio APRN [address] [place] [address] [phone] Name Priority Associated Diagnoses Order Schedule Lipid Panel Routine Mixed hyperlipidemia Expected: 10/19/2018, S/P coronary artery stent Expires: 05/21/2019 placement Encounter for long-term current use of medication Alanine Aminotransferase Routine Mixed hyperlipidemia Expected: 2018, S/P coronary artery stent Expires: 05/21/2019 placement Encounter for long-term current use of medication Aspartate Aminotransferase Routine Mixed hyperlipidemia Expected: 2018, S/P coronary artery stent Expires: 05/21/2019 placement Encounter for long-term current use of medication Glucose Routine Mixed hyperlipidemia Expected: 10/19/2018, S/P coronary artery stent Expires: 05/21/2019 placement Encounter for long-term current use of medication Hemoglobin A1C Routine Mixed hyperlipidemia Expected: 10/19/2018, S/P coronary artery stent Expires: 05/21/2019 placement Encounter for long-term current use of medication as of this encounter Visit Diagnoses Diagnosis Encounter for long-term current use of medication - Primary Mixed hyperlipidemia S/P coronary artery stent placement Postsurgical percutaneous transluminal coronary angioplasty status
--- OUTSIDE RECORDS SUMMARY | 2018-07-27 09:36 | XMS REPORT | Encounter Summary ---
Author Author [facility] Organization [facility] Address Unknown Phone Unavailable Care Team Providers Care Bulb Assembler Name Role Phone Elieser Atkinson MD PCP Encounter Details Date Type Department Care Team Description 05/14/2018 Orders Only [facility] Gus Humphrey MD Essential hypertension; Cardiovascular [address] Mixed hyperlipidemia; [address] Hyperglycemia [address] [place] [address] [address] [place] [address] [phone] Social History Tobacco Use Types Packs/Day Years Used Date Former Smoker Cigarettes 1.5 30 Quit: 08/21/1974 Smokeless Tobacco: Never Used Alcohol Use Drinks/Week oz/Week Comments Yes 21 Standard 12.6 drinks or equivalent Sex Assigned at Date Recorded Not on file as of this encounter Plan of Treatment Date Type Specialty Care Team Description 11/06/2018 Office Visit Cardiology Mariana Antonio, OUTDOOR ILLUMINATING ENGINEER [address] [place] [address] [phone] as of this encounter Procedures Procedure Name Priority Date/Time Associated Diagnosis Comments LIPID PANEL Routine 05/14/2018 Essential hypertension Results for this 12:00 AM CDT Mixed hyperlipidemia procedure are in the Hyperglycemia results section. HEMOGLOBIN A1C Routine 05/14/2018 Essential hypertension Results for this 12:00 AM CDT Mixed hyperlipidemia procedure are in the Hyperglycemia results section. GLUCOSE Routine 05/14/2018 Essential hypertension Results for this 12:00 AM CDT Mixed hyperlipidemia procedure are in the Hyperglycemia results section. CREATINE KINASE Routine 05/14/2018 Essential hypertension Results for this 12:00 AM CDT Mixed hyperlipidemia procedure are in the Hyperglycemia results section. ASPARTATE Routine 05/14/2018 Essential hypertension Results for this AMINOTRANSFERASE 12:00 AM CDT Mixed hyperlipidemia procedure are in the Hyperglycemia results section. ALANINE AMINOTRANSFERASE Routine 05/14/2018 Essential hypertension Results for this 12:00 AM CDT Mixed hyperlipidemia procedure are in the Hyperglycemia results section. in this encounter Results * Creatine Kinase (05/14/2018) Creatine Kinase Total 49 45 - 235 [facility] Specimen Blood Narrative Performed At Performing Organization Address [facility] Phone Number [address] [place] [address] * Lipid Panel (05/14/2018) Triglycerides 61 35 - 200 mg/dL [facility] HDL Cholesterol 51 35 - 70 mg/dL [facility] LDL Cholesterol 61 60 - 130 mg/dL [facility] Cholesterol/HDL Ratio 2.4 0.0 - 5.0 [facility] LDL INTERPRETATION [facility] Non-HDL Cholesterol [facility] Cholesterol 124 (A) 130 - 200 [facility] Specimen Blood Narrative Performed At Performing Organization Address [facility] Phone Number [address] [place] [address] * Hemoglobin A1C (05/14/2018) HEMOGLOBIN A1C 5.2 4.0 - 6.0 % [facility] Specimen Blood Narrative Performed At Performing Organization Address [facility] Phone Number [address] [place] [address] * Glucose (05/14/2018) Glucose 97 60 - 125 mg/dL [facility] Specimen Blood Narrative Performed At Performing Organization Address [facility] Phone Number [address] [place] [address] * Aspartate Aminotransferase (05/14/2018) Aspartate 12 0 - 40 U/L [facility] Aminotransferase Specimen Blood Narrative Performed At Performing Organization Address [facility] Phone Number [address] [place] [address] * Alanine Aminotransferase (05/14/2018) Alanine Aminotransferase 9 9 - 29 U/L [facility] Specimen Blood Narrative Performed At Performing Organization Address City/State/Zipcode Phone Number [address] [place] [address] in this encounter Visit Diagnoses Diagnosis Essential hypertension Unspecified essential hypertension Mixed hyperlipidemia Hyperglycemia Other abnormal glucose
--- OUTSIDE RECORDS SUMMARY | 2018-07-27 09:36 | XMS REPORT | Encounter Summary ---
Author Author [facility] Organization [facility] Address Unknown Phone Unavailable Care Team Providers Care Juvenile Counselor Name Role Phone Elieser Atkinson MD PCP Encounter Details Date Type Department Care Team Description 05/09/2018 Orders Only [facility] Mariana Antonio APRN Essential hypertension Cardiovascular [address] (Primary Dx); [place] [address] Mixed hyperlipidemia; [address] [phone] Hyperglycemia [address] [place] [address] Social History Tobacco Use Types Packs/Day Years [...] Mariana Antonio APRN [address] [place] [address] [phone] as of this encounter Results * Creatine Kinase (05/14/2018) Creatine Kinase Total 49 45 - 235 [facility] Specimen Blood Narrative Performed At Performing Organization Address City/State/Zipcode Phone Number [facility] [address] [place] [address] * Lipid Panel (05/14/2018) Triglycerides 61 35 - 200 mg/dL [facility] HDL Cholesterol 51 35 - 70 mg/dL [facility] LDL Cholesterol 61 60 - 130 mg/dL [facility] Cholesterol/HDL Ratio 2.4 0.0 - 5.0 [facility] LDL INTERPRETATION [facility] Non-HDL Cholesterol [facility] Cholesterol 124 (A) 130 - 200 [facility] Specimen Blood Narrative Performed At Performing Organization Address [facility] Phone Number [address] [place] [address] * Hemoglobin A1C (05/14/2018) HEMOGLOBIN A1C 5.2 4.0 - 6.0 % [facility] Specimen Blood Narrative Performed At Performing Organization Address [facility] Phone Number [facility] [address] [place] [address] * Glucose (05/14/2018) Glucose 97 60 - 125 mg/dL [facility] Specimen Blood Narrative Performed At Performing Organization Address [facility] Phone Number [address] [place] [address] * Aspartate Aminotransferase (05/14/2018) Aspartate 12 0 - 40 U/L [facility] Aminotransferase Specimen Blood Narrative Performed At Performing Organization Address [facility] Phone Number [address] [place] [address] * Alanine Aminotransferase (05/14/2018) Alanine Aminotransferase 9 9 - 29 U/L [facility] Specimen Blood Narrative Performed At Performing Organization Address [facility] Phone Number [facility] [address] [place] [address] in this encounter Visit Diagnoses Diagnosis Essential hypertension - Primary Unspecified essential hypertension Mixed hyperlipidemia Hyperglycemia Other abnormal glucose
--- OUTSIDE RECORDS SUMMARY | 2018-07-27 09:36 | XMS REPORT | Encounter Summary ---
Author Author [facility] Organization [facility] Address Unknown Phone Unavailable Care Team Providers Care Compensation And Benefits Manager Name Role Phone Elieser Atkinson MD PCP Reason for Visit * Reason Comments Dyslipidemia Hypertension Coronary Artery Disease Encounter Details Date Type Department Care Team Description 05/16/2018 Office Visit [facility] Mariana Antonio APRN Mixed hyperlipidemia Cardiovascular [address], [address] 1998 (Primary Dx); [place] [address] Coronary artery disease [address] [phone] involving [place] coronary [address] [place] [address] without angina pectoris; [phone] S/P coronary artery stent placement; Essential hypertension; Paroxysmal atrial fibrillation (HCC); Encounter for therapeutic drug monitoring Social History Tobacco Use Types Packs/Day Years Used Date Former Smoker Cigarettes 1.5 30 Quit: 08/21/1974 Smokeless Tobacco: Never Used Alcohol Use Drinks/Week oz/Week Comments Yes 21 Standard 12.6 drinks or equivalent Sex Assigned at Date Recorded Not on file as of this encounter Last Filed Vital Signs Vital Sign Reading Time Taken Blood Pressure 130/71 05/16/2018 10:24 AM CDT Pulse 67 05/16/2018 10:24 AM CDT Temperature - - Respiratory Rate - - Oxygen Saturation - - Inhaled Oxygen - - Concentration Weight 68.9 kg (152 lb) 05/16/2018 10:24 AM CDT Height 175.3 cm (5' 9") 05/16/2018 10:24 AM CDT Body Mass Index 22.45 05/16/2018 10:24 AM CDT in this encounter Instructions * Patient Instructions - Mariana Antonio APRN - 05/16/2018 10:30 AM CDT Continue the excellent exercise daily. Limit processed carbohydrates and simple sugars. Continue the excellent diet! Start taking omega 3 supplement daily. Make sure has the DHA and EPA formula. Your cholesterol and blood sugar look great! in this encounter Progress Notes * Mariana Antonio APRN - 05/16/2018 10:30 AM CDT Formatting of this note may be different from the original. [facility] Note Appointment Date: 05/16/2018 Elieser Atkinson MD [address] [id number] RE: Waldemar Recinos : 1940 Visit provider: Mariana Antonio APRN Dear Elieser Atkinson MD, I had the pleasure of seeing Waldemar Recinos in the office today. He is a 78 y.o. male and presents with the following chief complaints: Dyslipidemia; Hypertension; and Coronary Artery Disease HPI: I had the pleasure of seeing Dr. Recinos today for his cardiovascular risk management followup [facility] the [facility]. He has a history of coronary artery disease with a bare metal stent to the obtuse marginal branch and two bare metal stents, one to the proximal LAD and distal LAD in February 1998. He also had a drug-eluting stent placed to the RCA in March 2008. In March 2011, he had a normal heart catheterization with patent stents to the LAD, circumflex, and RCA. His EF was 60%. History of atrial fibrillation/atrial flutter post left atrial ablation with pulmonary vein isolation in June 2013. He also has a history of essential hypertension, dyslipidemia, and COPD. He is down 27 pounds since October 2016 and I congratulated him on this excellent weight loss. He currently walks an hour and a half 7 days a week. He denies angina, dyspnea, orthopnea, PND, palpitations, syncope, or lower extremity edema. He recently saw our tray drier operator, Dr. Paz, in April 2018. Patient Active Problem List Diagnosis SNOMED CT(R) Mixed hyperlipidemia MIXED HYPERLIPIDEMIA Coronary artery disease involving [place] coronary artery without angina pectoris DISORDER OF CORONARY ARTERY Essential hypertension ESSENTIAL HYPERTENSION Paroxysmal atrial flutter (HCC) PAROXYSMAL ATRIAL FLUTTER Paroxysmal atrial fibrillation (HCC) PAROXYSMAL ATRIAL FIBRILLATION S/P coronary artery stent placement HISTORY OF PLACEMENT OF STENT FOR CORONARY ARTERY DISEASE COPD (chronic obstructive pulmonary disease) (HCC) CHRONIC OBSTRUCTIVE LUNG DISEASE Simple chronic bronchitis (HCC) SIMPLE CHRONIC BRONCHITIS Past Medical History: Diagnosis Date COPD (chronic obstructive pulmonary disease) ([facility]) 10/31/2016 Coronary artery disease involving [place] coronary artery without angina pectoris 09/14/2015 Diverticulitis Essential hypertension 09/14/2015 Mixed hyperlipidemia 09/14/2015 Paroxysmal atrial fibrillation ([facility]) 2012 Paroxysmal atrial flutter ([facility]) PVC's (premature ventricular contractions) RBBB 09/08/2011 Simple chronic bronchitis ([facility]) 10/12/2017 Past Surgical History: Procedure Laterality Date CARDIAC CATHETERIZATION 03/30/2011 Patent stents in the LAD, CX and RCA w mild instent restenosis throughout the arteries/[place]. CARDIAC CATHETERIZATION 02/17/2000 No evidence of restenosis in previously placed stents; No disease progression in RCA; CARDIAC CATHETERIZATION 02/13/2006 CARDIAC ELECTROPHYSIOLOGY MAPPING AND ABLATION 07/24/2013 Left atrial ablation with the pulmonary vein isolation as well as cavotricuspid isthmus ablation.Synchronized direct current cardioversion of atrial fibrillation to sinus rhythm. CORONARY ANGIOPLASTY WITH STENT PLACEMENT 03/28/2008 SHEMAR -to the proximal RCA. CORONARY ANGIOPLASTY WITH STENT PLACEMENT 02/23/1998 BMS - to high grade 90% stenosis in OMB; BMS X2 to proximal LAD for 80-90% stenosis proximal to a previously placed stent, and to distal LAD for 80% diffuse disease; herina repair 03/2017 HERNIA REPAIR 1993 Final Medications: Current Outpatient Prescriptions Medication Sig Dispense Refill albuterol (ACCUNEB) 2.5 mg/3 mL (0.083 %) nebulizer solution Inhale as needed. aspirin 325 MG EC tablet take 1 tablet (325MG) by oral route every day 0 atorvastatin (LIPITOR) 10 MG tablet take 1 tablet (10MG) by oral route every day 90 3 cholecalciferol, vitamin D3, (VITAMIN D3) 1,000 unit capsule Take 1,000 Units by mouth daily. 90 capsule 3 folic acid (FOLVITE) 1 MG tablet take 5 Tablet (5MG) by oral route every day 1 0 ipratropium-albuterol (DUO-NEB) 0.5-3 mg/3 mL nebulizer Inhale 3 mL 2 (two) times a day. pynol-[id number]-bft-gbw-wwuseki-ast 1,000-230-60 mg cap Take 1 capsule by mouth daily. lisinopril (PRINIVIL,ZESTRIL) 10 MG tablet take 1 tablet (10MG) by oral route every day (Patient taking differently: 5 mg. ) 90 3 No current facility-administered medications for this visit. Allergies Allergen Reactions Ticlopidine Hcl Comment: TICLID Family History Problem Relation Age of Onset Coronary artery disease Father Heart attack Mother Social History: Social History Substance Use Topics Smoking status: Former Smoker Packs/day: 1.50 Years: 30.00 Types: Cigarettes Quit date: 08/21/1974 Smokeless tobacco: Never Used Alcohol use 21 Standard drinks or equivalent per week Review of Systems Constitution: Negative for fever, malaise/fatigue and night sweats. HENT: Negative for nosebleeds. Eyes: Negative for blurred vision. Cardiovascular: Negative for chest pain, irregular heartbeat and leg swelling. Respiratory: Negative for cough, shortness of breath, snoring and wheezing. Endocrine: Negative for cold intolerance and heat intolerance. Hematologic/Lymphatic: Negative for bleeding problem. Bruises/bleeds easily. Skin: Negative for rash. Musculoskeletal: Negative for joint pain, muscle cramps and muscle weakness. Gastrointestinal: Negative for dysphagia, nausea and vomiting. Neurological: Negative for excessive daytime sleepiness, dizziness, light- headedness, loss of balance and numbness. Psychiatric/Behavioral: Negative for depression. All other systems reviewed and are negative. Vital Signs 05/16/18 1024 BP: 130/71 Pulse: 67 Weight: 68.9 kg (152 lb) Height: 1.753 m (5' 9") BMI: Body mass index is 22.45 kg/m. Waist circumference: 34 inches Physical Exam Constitutional: He appears well-developed and well-nourished. HENT: Head: Normocephalic. Neck: Normal range of motion. Cardiovascular: Normal rate, regular rhythm and normal heart sounds. Pulmonary/Chest: Effort normal and breath sounds normal. Musculoskeletal: Normal range of motion. Neurological: He is alert. Skin: Skin is warm and dry. Psychiatric: He has a normal mood and affect. His behavior is normal. Judgment and thought content normal. Vitals reviewed. Labs: Cholesterol (no units) Date Value 05/14/2018 124 (A) 09/18/2017 122 04/26/2017 137 12/13/2016 112 (A) HDL Cholesterol (mg/dL) Date Value 05/14/2018 51 09/18/2017 63 04/26/2017 64 12/13/2016 67 Triglycerides (mg/dL) Date Value 05/14/2018 61 09/18/2017 59 04/26/2017 63 12/13/2016 50 LDL Cholesterol (mg/dL) Date Value 05/14/2018 61 09/18/2017 47 04/26/2017 60 12/13/2016 35 (A) HEMOGLOBIN A1C Date Value 05/14/2018 5.2 % 09/18/2017 5.1 04/26/2017 5.1 12/13/2016 5.3 Alanine Aminotransferase Date Value Ref Range Status 05/14/2018 9 9 - 29 U/L Final Aspartate Aminotransferase Date Value Ref Range Status 05/14/2018 12 0 - 40 U/L Final Glucose (mg/dL) Date Value 05/14/2018 97 10/12/2017 85 09/18/2017 87 04/26/2017 66 Diet: Diet: Regular Caffeine: No Exercise: Level: Regular Activity: Walks Duration: 60 Frequency: Daily Encounter Diagnoses Name Primary? Mixed hyperlipidemia Yes Coronary artery disease involving [place] coronary artery of [place] heart without angina pectoris S/P coronary artery stent placement Essential hypertension Paroxysmal atrial fibrillation (HCC) Encounter for therapeutic drug monitoring Impression and Plan: 1) Coronary artery disease s/p stent placement. Last cath in March 2011 demonstrated patent stents to LAD, circumflex and RCA. Patient is asymptomatic with no chest pain or shortness of breath. Last seen by our tray drier operator Dr. Paz in April 2018 will continue to follow up with annual appointments with our tray drier operator or sooner if needed for a complete exam and further recommendations. 2) Atrial fibrillation and atrial flutter s/p left atrial ablation with pulmonary vein isolation and cavotricuspid isthmus ablation. Currently asymptomatic with no arrhythmias. 3) Dyslipidemia. Optimally controlled with LDL of 61, HDL of 51 and triglycerides of 61. Continue Atorvastatin 10 mg daily and the excellent diet modifications. Goal LDL <70. Resume [place] 3 supplement. 3) Hypertension. Blood pressure is adequately controlled continue Lisinopril 5 mg daily. 4) A body mass index 22.45 with a waist circumference of 34 is optimal for height. Has lost 27 lbs over the last year improving his exercise tolerance, COPD symptoms and overall cardiovascular health. Maintain current weight. 5) Fasting blood sugar is normal at 97 and HgA1c is 5.2% which demonstrates excellent control of his blood sugars. 6) Vitamin D 7) Exercise walks daily 1.5 hours. Continue excellent exercise regime. Thank you for allowing me to participate in Waldemar Recinos's care. If I can be of any further assistance, please do not hesitate to contact me. Sincerely, Mariana Antonio APRN /bhavesh in this encounter Plan of Treatment Date Type Specialty Care Team Description 11/06/2018 Office Visit Cardiology Mariana Antonio APRN [address] [place] [address] [phone] as of this encounter Visit Diagnoses Diagnosis Mixed hyperlipidemia - Primary Coronary artery disease involving [place] coronary artery of [place] heart without angina pectoris S/P coronary artery stent placement Postsurgical percutaneous transluminal coronary angioplasty status Essential hypertension Unspecified essential hypertension Paroxysmal atrial fibrillation (HCC) Atrial fibrillation Encounter for therapeutic drug monitoring
--- OUTSIDE RECORDS SUMMARY | 2018-07-27 09:36 | XMS REPORT | Clinical Summary ---
Author Author [facility] Organization [facility] Address Unknown Phone Unavailable Care Team Providers Care Senior Net Software Engineer Name Role Phone Elieser Atkinson MD PCP Allergies Active Allergy Reactions Severity Noted Date Comments Ticlopidine Hcl 09/14/2015 Comment: TICLID Current Medications Prescription Sig. Disp. Refills Start End Date Status Date lisinopril take 1 tablet (10MG) by 90 3 06/03/20 Active (PRINIVIL,ZESTRIL) 10 MG oral route every day 14 tablet atorvastatin (LIPITOR) 10 take 1 tablet (10MG) by 90 3 06/03/20 Active MG tablet oral route every day 14 folic acid (FOLVITE) 1 MG take 5 Tablet (5MG) by 1 0 10/25/19 Active tablet oral route every day 14 aspirin 325 MG EC tablet take 1 tablet (325MG) by 0 04/01/20 Active oral route every day 11 [id number]-[id number] Take 1 capsule by mouth Active o-ast 1,000-230-60 mg cap daily. ipratropium-albuterol Inhale 3 mL 2 (two) times Active (DUO-NEB) 0.5-3 mg/3 mL a day. nebulizer cholecalciferol, vitamin Take 1,000 Units by mouth 90 capsule 3 Active D3, (VITAMIN D3) 1,000 daily. 17 unit capsule albuterol (ACCUNEB) 2.5 Inhale as needed. Active mg/3 mL (0.083 %) nebulizer solution Active Problems Problem Noted Date Simple chronic bronchitis ([facility]) 10/12/2017 COPD (chronic obstructive pulmonary disease) ([facility]) 10/31/2016 Mixed hyperlipidemia 09/14/2015 Coronary artery disease involving [place] coronary artery without angina pectoris Essential hypertension 09/14/2015 Paroxysmal atrial flutter (HCC) Paroxysmal atrial fibrillation (HCC) Overview: PAF and flutter/S/P RFA 2013 S/P coronary artery stent placement Overview: Multiple PCI Encounters Date Type Specialty Care Team Description 05/21/2018 Orders Only Cardiology Mariana Antonio APRN Encounter for long-term current use of medication (Primary Dx); Mixed hyperlipidemia; S/P coronary artery stent placement 05/16/2018 Office Visit Cardiology Mariana Antonio APRN Mixed hyperlipidemia (Primary Dx); Coronary artery disease involving [place] coronary artery of [place] heart without angina pectoris; S/P coronary artery stent placement; Essential hypertension; Paroxysmal atrial fibrillation (HCC); Encounter for therapeutic drug monitoring 05/14/2018 Orders Only Cardiology Gus Humphrey MD Essential hypertension; Mixed hyperlipidemia; Hyperglycemia 05/09/2018 Orders Only Cardiology Mariana Antonio APRN Essential hypertension (Primary Dx); Mixed hyperlipidemia; Hyperglycemia from Last 3 Months Family History Medical History Relation Name Comments Coronary artery disease Father Heart attack Mother Relation Name Status Comments Father Cause of was CAD at age 84. (Age 84) Mother Cause of was MS at age 89. (Age 89) Social History Tobacco Use Types Packs/Day Years Used Date Former Smoker Cigarettes 1.5 30 Quit: 08/21/1974 Smokeless Tobacco: Never Used Tobacco Cessation: Counseling Given: No Alcohol Use Drinks/Week oz/Week Comments Yes 21 Standard 12.6 drinks or equivalent Sex Assigned at Date Recorded Not on file Last Filed Vital Signs Vital Sign Reading [...] Mass Index 22.45 05/16/2018 10:24 AM CDT Plan of Treatment Date Type Specialty Care Team Description 11/06/2018 Office Visit Cardiology Mariana Antonio APRN [address] [place] [address] [phone] Health Maintenance Due Date Last Done Comments Medicare Annual Wellness 1940 Spirometry # 1940 Td # 1940 Zoster Vaccine# (1 of 2) 1991 Depression Screening 2006 PHQ-9 # Fall Risk Assessment # 2006 Pneumococcal Immunization 2006 65+ (1 of 2 - PCV13) Influenza Vaccine (#1) 2018 05/20/2017 Procedures Procedure Name Priority Date/Time Associated Diagnosis Comments CREATINE KINASE Routine 05/14/2018 Essential hypertension Results for this 12:00 AM CDT Mixed hyperlipidemia procedure are in the Hyperglycemia results section. LIPID PANEL Routine 05/14/2018 Essential hypertension Results [...] procedure are in the Hyperglycemia results section. from Last 3 Months Results * Lipid Panel (05/14/2018) Triglycerides 61 35 - 200 mg/dL [facility] HDL Cholesterol 51 35 - 70 mg/dL [facility] LDL Cholesterol 61 60 - 130 mg/dL [facility] Cholesterol/HDL Ratio 2.4 0.0 - 5.0 [facility] LDL INTERPRETATION [facility] Non-HDL Cholesterol [facility] Cholesterol 124 (A) 130 - 200 [facility] Specimen Blood Narrative Performed At Performing Organization Address City/State/Zipcode Phone Number [phone] [place] [address] * Hemoglobin A1C (05/14/2018) HEMOGLOBIN A1C 5.2 4.0 - 6.0 % [facility] Specimen Blood Narrative Performed At Performing Organization Address City/State/Zipcode Phone Number [phone] [place] [address] * Glucose (05/14/2018) Glucose 97 60 - 125 mg/dL [facility] Specimen Blood Narrative Performed At Performing Organization Address [facility] Phone Number [phone] [place] [address] * Creatine Kinase (05/14/2018) Creatine Kinase Total 49 45 - 235 [facility] Specimen Blood Narrative Performed At Performing Organization Address [facility] Phone Number [phone] [place] [address] * Aspartate Aminotransferase (05/14/2018) Aspartate 12 0 - 40 U/L [facility] Aminotransferase Specimen Blood Narrative Performed At Performing Organization Address [facility] Phone Number [phone] [place] [address] * Alanine Aminotransferase (05/14/2018) Alanine Aminotransferase 9 9 - 29 U/L [facility] Specimen Blood Narrative Performed At Performing Organization Address [facility] Phone Number [phone] [place] [address] from Last 3 Months
--- OUTSIDE RECORDS SUMMARY | 2018-07-27 09:37 | XMS REPORT | Continuity of Care Document ---
Author Author [facility] Organization [facility] Address Unknown Phone Unavailable Allergies Active Description Code Type Severity Reaction Onset Reported/Identified Relationship to Patient Clinical Status Yes ticlopidine [id number] Drug Allergy Unknown N/A 03/06/2017 Yes ticlopidine [id number] Drug Allergy Mild HIVES 05/21/2018 Medications There is no data. Problems Date Dx Coded Attending Type Code Diagnosis Diagnosed By 06/13/2013 GOGO KELLY DO V04.81 FLU SHOT 08/23/2013 FRANNY STAUFFER MD Ot 807.00 FRACTURE RIB NOS-CLOSED 08/23/2013 FRANNY SATUFFER MD Ot 959.11 OTH INJURY OF CHEST WALL 08/23/2013 FRANNY STAUFFER MD Ot E000.8 OTHER EXTERNAL CAUSE STATUS 08/23/2013 FRANNY STAUFFER MD Ot E885.9 FALL FROM SLIPPING, TRIPPING, OR STUMBLI 07/16/2015 SISI ALCALA DO Ot F17.211 NICOTINE DEPENDENCE, CIGARETTES, IN [place] 07/16/2015 SISI ALCALA DO Ot J40 BRONCHITIS, NOT SPECIFIED ACUTE OR CH 08/11/2016 ZURI HENNESSY APRN Ot R05 COUGH 08/26/2016 ZURI HENNESSY APRN Ot R05 COUGH 09/02/2016 ZURI HENNESSY CHEMICAL ENGINEERING TECHNICIAN Ot R05 COUGH 09/12/2016 ZURI HENNESSY APRN Ot R05 COUGH 10/17/2016 ZURI HENNESSY CHEMICAL ENGINEERING TECHNICIAN Ot R05 COUGH 10/20/2016 ZURI HENNESSY APRN Ot R05 COUGH 02/25/2017 DEQUAN JAMISON Ot E78.00 PURE HYPERCHOLESTEROLEMIA, UNSPECIFIED 02/25/2017 DEQUAN JAMISON Ot I10 ESSENTIAL (PRIMARY) HYPERTENSION 02/25/2017 DEQUAN JAMISON Ot I25.10 ATHSCL HEART DISEASE OF [place] CORONARY 02/25/2017 DEQUAN JAMISON Ot I48.91 UNSPECIFIED ATRIAL FIBRILLATION 02/25/2017 DEQUAN JAMISON Ot I48.92 UNSPECIFIED ATRIAL FLUTTER 02/25/2017 DEQUAN JAMISON Ot K40.90 UNIL INGUINAL HERNIA, W/O OBST OR GANGR, 02/25/2017 DEQUAN JAMISON Ot K80.20 CALCULUS OF GALLBLADDER W/O CHOLECYSTITI 02/25/2017 DEQUAN JAMISON Ot Z79.01 FRAME STRAIGHTENER (CURRENT) USE OF ANTICOAGULANT 02/25/2017 DEQUAN JAMISON Ot Z79.82 FRAME STRAIGHTENER (CURRENT) USE OF ASPIRIN 02/25/2017 DEQUAN JAMISON Ot 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 ANGIOPLASTY IMPLANT 02/28/2017 DEQUAN JAMISON Ot E78.00 PURE HYPERCHOLESTEROLEMIA, UNSPECIFIED 02/28/2017 DEQUAN JAMISON Ot I10 ESSENTIAL (PRIMARY) HYPERTENSION 02/28/2017 DEQUAN JAMISON Ot I25.10 ATHSCL HEART DISEASE OF [place] CORONARY 02/28/2017 DEQUAN JAMISON Ot I48.91 UNSPECIFIED ATRIAL FIBRILLATION 02/28/2017 DEQUAN JAMISON Ot I48.92 UNSPECIFIED ATRIAL FLUTTER 02/28/2017 DEQUAN JAMISON Ot K40.90 UNIL INGUINAL HERNIA, W/O OBST OR GANGR, 02/28/2017 DEQUAN JAMISON Ot K80.20 CALCULUS OF GALLBLADDER W/O CHOLECYSTITI 02/28/2017 DEQUAN JAMISON Ot Z79.01 FRAME STRAIGHTENER (CURRENT) USE OF ANTICOAGULANT 02/28/2017 DEQUAN JAMISON Ot Z79.82 FRAME STRAIGHTENER (CURRENT) USE OF ASPIRIN 02/28/2017 DEQUAN JAMISON Ot 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 ANGIOPLASTY IMPLANT 03/06/2017 ORVILLE SULLIVAN DO Ot K40.90 UNIL INGUINAL HERNIA, W/O OBST OR GANGR, 03/06/2017 ORVILLE SULLIVAN DO Ot Z01.818 ENCOUNTER FOR OTHER PREPROCEDURAL EXAMIN 03/06/2017 ORVILLE SULLIVAN DO Ot Z11.2 ENCOUNTER FOR SCREENING FOR OTHER BACTER 03/07/2017 ORVILLE SULLIVAN DO Ot K40.90 UNIL INGUINAL HERNIA, W/O OBST OR GANGR, 03/07/2017 ORVILLE SULLIVAN DO Ot Z01.818 ENCOUNTER FOR OTHER PREPROCEDURAL EXAMIN 03/07/2017 ORVILLE SULLIVAN DO Ot Z11.2 ENCOUNTER FOR SCREENING FOR OTHER BACTER 03/09/2017 ORVILLE SULLIVAN DO Ot E78.5 HYPERLIPIDEMIA, UNSPECIFIED 03/09/2017 ORVILLE SULLIVAN DO Ot I10 ESSENTIAL (PRIMARY) HYPERTENSION 03/09/2017 ORVILLE SULLIVAN DO Ot I25.10 ATHSCL HEART DISEASE OF [place] CORONARY 03/09/2017 ORVILLE SULLIVAN DO Ot I48.91 UNSPECIFIED ATRIAL FIBRILLATION 03/09/2017 ORVILLE SULLIVAN DO Ot J44.9 CHRONIC OBSTRUCTIVE PULMONARY DISEASE, U 03/09/2017 ORVILLE SULLIVAN DO Ot K40.91 UNILATERAL INGUINAL HERNIA, W/O OBST OR 03/09/2017 ORVILLE SULLIVAN DO Ot Z79.899 OTHER SKILLED NURSING (CURRENT) DRUG THERAPY 03/09/2017 ORVILLE SULLIVAN DO Ot Z87.891 PERSONAL HISTORY OF NICOTINE DEPENDENCE 03/09/2017 ORVILLE SULLIVAN DO Ot 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 ANGIOPLASTY IMPLANT 03/13/2017 ORVILLE SULLIVAN DO Ot E78.5 HYPERLIPIDEMIA, UNSPECIFIED 03/13/2017 ORVILLE SULLIVAN DO Ot I10 ESSENTIAL (PRIMARY) HYPERTENSION 03/13/2017 ORVILLE SULLIVAN DO Ot I25.10 ATHSCL HEART DISEASE OF [place] CORONARY 03/13/2017 ORVILLE SULLIVAN DO Ot I48.91 UNSPECIFIED ATRIAL FIBRILLATION 03/13/2017 ORVILLE SULLIVAN DO Ot J44.9 CHRONIC OBSTRUCTIVE PULMONARY DISEASE, U 03/13/2017 ORVILLE SULLIVAN DO Ot K40.91 UNILATERAL INGUINAL HERNIA, W/O OBST OR 03/13/2017 ORVILLE SULLIVAN DO Ot Z79.899 OTHER FRAME STRAIGHTENER (CURRENT) DRUG THERAPY 03/13/2017 ORVILLE SULLIVAN DO Ot Z87.891 PERSONAL HISTORY OF NICOTINE DEPENDENCE 03/13/2017 ORVILLE SULLIVAN DO Ot 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 ANGIOPLASTY IMPLANT 05/21/2018 BROOKE EUCEDA, DEANNA Shine Ot 272.4 HYPERLIPIDEMIA NEC/NOS 05/21/2018 DEANNA COX MD Ot 401.1 BENIGN HYPERTENSION 05/21/2018 DEANNA COX MD Ot 414.01 CORONARY ATHEROSCLEROSIS OF [place] CORON 05/21/2018 DEANNA COX MD Ot 427.31 ATRIAL FIBRILLATION 05/21/2018 DEANNA COX MD Ot 427.32 ATRIAL FLUTTER 05/21/2018 DEANNA COX MD Ot V58.61 ANTICOAGULANTS,LT,CURRENT USE 05/21/2018 ZURI HENNESSY CHEMICAL ENGINEERING TECHNICIAN Ot R05 COUGH 05/21/2018 ZURI HENNESSY CHEMICAL ENGINEERING TECHNICIAN Ot R05 COUGH 05/24/2018 ORVILLE SULLIVAN DO Ot 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 05/24/2018 ORVILLE SULLIVAN DO Ot E78.5 HYPERLIPIDEMIA, UNSPECIFIED 05/24/2018 ORVILLE SULLIVAN DO Ot I10 ESSENTIAL (PRIMARY) HYPERTENSION 05/24/2018 ORVILLE SLULIVAN DO Ot I25.10 ATHSCL HEART DISEASE OF [place] CORONARY 05/24/2018 ORVILLE SULLIVAN DO Ot J44.9 CHRONIC OBSTRUCTIVE PULMONARY DISEASE, U 05/24/2018 ORVILLE SULLIVAN DO Ot K40.30 UNIL INGUINAL HERNIA, W OBST, W/O GANGR, 05/24/2018 ORVILLE SULLIVAN DO Ot Z79.82 SKILLED NURSING (CURRENT) USE OF ASPIRIN 05/24/2018 ORVILLE SULLIVAN DO Ot Z79.899 OTHER SKILLED NURSING (CURRENT) DRUG THERAPY 05/24/2018 ORVILLE SULLIVAN DO Ot Z87.891 PERSONAL HISTORY OF NICOTINE DEPENDENCE 05/24/2018 ORVILLE SULLIVAN DO Ot 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 ANGIOPLASTY IMPLANT 05/27/2018 ETELVINA ALFORD MD Ot E78.00 PURE HYPERCHOLESTEROLEMIA, UNSPECIFIED 05/27/2018 ETELVINA ALFORD MD Ot I10 ESSENTIAL (PRIMARY) HYPERTENSION 05/27/2018 ETELVINA ALFORD MD Ot I25.10 ATHSCL HEART DISEASE OF [place] CORONARY 05/27/2018 ETELVINA ALFORD MD Ot I48.91 UNSPECIFIED ATRIAL FIBRILLATION 05/27/2018 ETELVINA ALFORD MD Ot K56.7 ILEUS, UNSPECIFIED 05/27/2018 ETELVINA ALFORD MD Ot K59.00 CONSTIPATION, UNSPECIFIED 05/27/2018 ETELVINA ALFORD MD Ot R10.13 EPIGASTRIC PAIN 05/27/2018 ETELVINA ALFORD MD Ot Z79.51 SKILLED NURSING (CURRENT) USE OF INHALED STERO 05/27/2018 ETELVINA ALFORD MD Ot Z79.82 SKILLED NURSING (CURRENT) USE OF ASPIRIN 05/27/2018 ETELVINA ALFORD MD Ot Z87.442 PERSONAL HISTORY OF URINARY CALCULI 05/27/2018 ETELVINA ALFORD MD Ot Z87.891 PERSONAL HISTORY OF NICOTINE DEPENDENCE 05/27/2018 ETELVINA ALFORD MD Ot Z88.8 ALLERGY STATUS TO [facility] DRUG/MEDS/BIOL SUB 05/27/2018 ETELVINA ALFORD MD Ot 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 ANGIOPLASTY IMPLANT 05/27/2018 ETELVINA ALFORD MD Ot Z98.890 OTHER SPECIFIED POSTPROCEDURAL STATES 05/28/2018 ORVILLE SULLIVAN DO Ot 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 05/28/2018 ORVILLE SULLIVAN DO Ot E78.5 HYPERLIPIDEMIA, UNSPECIFIED 05/28/2018 ORVILLE SULLIVAN DO Ot I10 ESSENTIAL (PRIMARY) HYPERTENSION 05/28/2018 ORVILLE SULLIVAN DO Ot I25.10 ATHSCL HEART DISEASE OF [place] CORONARY 05/28/2018 ORVILLE SULLIVAN DO Ot J44.9 CHRONIC OBSTRUCTIVE PULMONARY DISEASE, U 05/28/2018 ORVILLE SULLIVAN DO Ot K40.30 UNIL INGUINAL HERNIA, W OBST, W/O GANGR, 05/28/2018 ORVILLE SULLIVAN DO Ot Z79.82 SKILLED NURSING (CURRENT) USE OF ASPIRIN 05/28/2018 ORVILLE SULLIVAN DO Ot Z79.899 OTHER FRAME STRAIGHTENER (CURRENT) DRUG THERAPY 05/28/2018 ORVILLE SULLIVAN DO Ot Z87.891 PERSONAL HISTORY OF NICOTINE DEPENDENCE 05/28/2018 ORVILLE SULLIVAN DO Ot 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 ANGIOPLASTY IMPLANT 05/29/2018 ETELVINA ALFORD MD Ot E78.00 PURE HYPERCHOLESTEROLEMIA, UNSPECIFIED 05/29/2018 ETELVINA ALFORD MD Ot I10 ESSENTIAL (PRIMARY) HYPERTENSION 05/29/2018 ETELVINA ALFORD MD Ot I25.10 ATHSCL HEART DISEASE OF [place] CORONARY 05/29/2018 ETELVINA ALFORD MD, Ot I48.91 UNSPECIFIED ATRIAL FIBRILLATION 05/29/2018 ETELVINA ALFORD MD Ot K56.7 ILEUS, UNSPECIFIED 05/29/2018 ETELVINA ALFORD MD Ot K59.00 CONSTIPATION, UNSPECIFIED 05/29/2018 ETELVINA ALFORD MD Ot R10.13 EPIGASTRIC PAIN 05/29/2018 ETELVINA ALFORD MD Ot Z79.51 SKILLED NURSING (CURRENT) USE OF INHALED STERO 05/29/2018 ETELVINA ALFORD MD Ot Z79.82 SKILLED NURSING (CURRENT) USE OF ASPIRIN 05/29/2018 ETELVINA ALFORD MD Ot Z87.442 PERSONAL HISTORY OF URINARY CALCULI 05/29/2018 ETELVINA ALFORD MD Ot Z87.891 PERSONAL HISTORY OF NICOTINE DEPENDENCE 05/29/2018 ETELVINA ALFORD MD Ot Z88.8 ALLERGY STATUS TO OT DRUG/MEDS/BIOL SUB 05/29/2018 ETELVINA ALFORD MD Ot 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 ANGIOPLASTY IMPLANT 05/29/2018 ETELVINA LAFORD MD Ot Z98.890 OTHER SPECIFIED POSTPROCEDURAL STATES 06/01/2018 ORVILLE SULLIVAN DO Ot 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 06/01/2018 ORVILLE SULLIVAN DO Ot E78.5 HYPERLIPIDEMIA, UNSPECIFIED 06/01/2018 ORVILLE SULLIVAN DO Ot I10 ESSENTIAL (PRIMARY) HYPERTENSION 06/01/2018 ORVILLE SULLIVAN DO Ot I25.10 ATHSCL HEART DISEASE OF [place] CORONARY 06/01/2018 ORVILLE SULLIVAN DO Ot J44.9 CHRONIC OBSTRUCTIVE PULMONARY DISEASE, U 06/01/2018 ORVILLE SULLIVAN DO Ot K40.30 UNIL INGUINAL HERNIA, W OBST, W/O GANGR, 06/01/2018 ORVILLE SULLIVAN DO Ot Z79.82 FRAME STRAIGHTENER (CURRENT) USE OF ASPIRIN 06/01/2018 ORVILLE SULLIVAN DO Ot Z79.899 OTHER FRAME STRAIGHTENER (CURRENT) DRUG THERAPY 06/01/2018 ORVILLE SULLIVAN DO Ot Z87.891 PERSONAL HISTORY OF NICOTINE DEPENDENCE 06/01/2018 ORVILLE SULLIVAN DO Ot Z95.5 PRESENCE OF [...] Status Pt. Type Provider Facility Loc./Unit Complaint [id number] 07/18/2018 07:43:00 07/18/2018 23:59:59 CLS Outpatient BRYON MARIN MD [facility] RAD RUQ PAIN [id number] 05/27/2018 02:30:00 05/27/2018 03:40:00 DIS Emergency ETELVINA ALFORD MD [facility] ER POST HERNIA SURGERY/ABD PAIN [id number] 05/24/2018 07:52:00 05/24/2018 13:30:00 DIS Outpatient ORVILLE SULLIVAN DO [facility] LEFT INGUINAL HERNIA [id number] 05/21/2018 10:33:00 05/21/2018 11:13:00 DIS Outpatient ORVILLE SULLIVAN DO [facility] PREOP LEFT INGUINAL HERNIA REPAIR [id number] 03/09/2017 07:30:00 03/09/2017 14:07:00 DIS Outpatient ORVILLE SULLIVAN DO [facility] RIGHT INGUINAL HERNIA [id number] 03/06/2017 12:40:00 03/06/2017 13:31:00 DIS Outpatient ORVILLE SULLIVAN DO [facility] PREOP RIGHT INGUINAL HERNIA REPAIR [id number] 02/25/2017 12:23:00 02/25/2017 17:15:00 DIS Emergency DEQUAN JAMISON [facility] ER HERNIA [id number] 08/24/2016 09:59:00 08/24/2016 23:59:59 CLS Outpatient ZURI HENNESSY APRN [facility] RT CHRONIC COUGH [id number] 08/11/2016 09:46:00 08/11/2016 23:59:59 CLS Outpatient ZURI HENNESSY APRN [facility] RAD CHRONIC COUGH [id number] 07/15/2015 23:20:00 07/16/2015 01:39:00 DIS Emergency SISI ALCALA DO [facility] ER CHEST CONGESTION [id number] 11/13/2013 12:49:00 11/13/2013 23:59:59 CLS Outpatient BROOKE EUCEDA, DEANNA Shine [facility] CARD ATRIAL FIBRILLATION [id number] 08/23/2013 16:26:00 08/23/2013 18:22:00 DIS Emergency XIOMY EUCEDA, FRANNY Wiley [facility] ER FALL,RIB PAIN [id number] 06/13/2013 13:19:00 06/13/2013 23:59:59 CLS Outpatient GOGO KELLY DO
[2018-07-27] MEDS ORDERED: FAMOTIDINE 20 MG (PEPCID) TABLET PO STA (09:42)
[2018-07-27] MEDS ORDERED: LIDOCAINE 2% VISCOUS 15 ML UDC PO ONE (09:45)
[2018-07-27] MEDS ORDERED: ANTACID SUSP 30 ML UDC (MYLANTA) PO ONE (09:45)
[2018-07-27] MEDS ORDERED: ASPIRIN 81 MG CHEW (CHILDREN'S ASA) PO ONE (09:45)
--- NOTE | 2018-07-27 09:50 | ED Chest Pain ---
General Chief Complaint: Abdominal/GI Problems Stated Complaint: CHEST/ABD DISCOMFORT Nursing Triage Note: ARRIVED VIA AMB TO ROOM 6. COMPLAINS OF EPIGASTRIC PAIN STARTING 45 MINS ORE CHARGER. STATES HE TOOK TUMS THAT HELPED A LITTLE Nursing Sepsis Screen: No Definite Risk Source: patient Exam Limitations: no limitations History of Present Illness Date Seen by Provider: Jul 27, 2018 Time Seen by Provider: 09:28 Initial Comments The patient presents to the ER by private conveyance with chief complaint that he's having some chest discomfort and points to his midepigastric low sternum region. It does not radiate and is not having any nausea. He describes it as a burning pain. He has a history of multiple stents and is followed by engine turner at [facility]. He is status post 2 ablations. He took a couple Tums and said that it only marginally helped and since he had the history of heart disease a concerned him so he decided to come out and he checked out. He' s been taking his medications routinely. He is not on blood thinners except for aspirin. He did not take any nitroglycerin today. As he arrives here in the ER he says his burning sensation is starting to get a little better. He says he also was told at one time he had a history of COPD was on some inhalers but after having a hiatal hernia repair with Dr. Sullivan he says his COPD went away and in no longer has problems with this. Allergies and Home Medications Allergies Coded Allergies: ticlopidine (Verified Allergy, Mild, HIVES, 05/21/18) Home Medications Albuterol Sulfate 0.63 Mg/3 Ml Vial.neb, IH BID, (Reported) Albuterol Sulfate 1 Puff Puff, 2 PUFF IH Q4H PRN for COUGH, (Reported) 1 PUFF = 90 MCG Aspirin 325 Mg Tablet, 325 MG PO DAILY, (Reported) Atorvastatin Calcium 10 Mg Tablet, 10 MG PO DAILY, (Reported) Docusate Sodium 100 Mg Capsule, 100 MG PO BID Prescribed by: ORVILLE SULLIVAN on 05/24/18 1033 Folic Acid 1 Mg Tablet, 5 MG PO BID, (Reported) Lisinopril 5 Mg Tablet, 5 MG PO DAILY, (Reported) Langston 3 Polyunsat Fatty Acids 1,000 Mg Cap, 1,000 MG PO DAILY, (Reported) Patient Home Medication List Home Medication List Reviewed: Yes Review of Systems Review of Systems Constitutional: No chills, No diaphoresis EENTM: No Blurred Vision, No Double Vision Respiratory: Denies Cough, Denies Shortness of Air Cardiovascular: See HPI, Chest Pain; Denies Edema Gastrointestinal: Abdominal Pain; Denies Constipated, Denies Diarrhea, Denies Nausea Genitourinary: Denies Burning, Denies Discharge, Denies Drainage Musculoskeletal: No back pain, No joint pain Past Dqlnqrn-Wrujtl-Zekbvy Hx Patient Social History Alcohol Use: Past History Number of Drinks Today: BB Alcohol Beverage of Choice: Placer Recreational Drug Use: Yes (ETOH) Smoking Status: Former Smoker Former Smoker, Quit: Mar 06, 1977 Recent Foreign Travel: No Contact w/Someone Who Travel: No Recent Infectious Disease Expo: No Recent Hopitalizations: No Immunizations Up To Date Tetanus Booster (TDap): Unknown Date of Pneumonia Vaccine: Jun 06, 2016 Date of Influenza Vaccine: May 14, 2018 Seasonal Allergies Seasonal Allergies: No Past Medical History Surgeries: Yes (RIGHT inguinal HERNIA REPAIR X, CARDIAC CATHS--STENTS X 5, CARDIAC ABLATION) Cardiac, Coronary Stent Respiratory: Yes Chronic Bronchitis, COPD Currently Using CPAP: No Currently Using BIPAP: No Cardiac: Yes (STENT X5, CARDIAC ABLATION FOR ATRIAL FIB/FLUTTER) Atrial Fibrillation, Coronary Artery Disease, High Cholesterol, Hypertension Neurological: No Reproductive Disorders: No Sexually Transmitted Disease: No HIV/AIDS: No Genitourinary: Yes Benign Prostatic Hyperpl, Kidney Stones Gastrointestinal: No Musculoskeletal: Yes Chronic Back Pain Endocrine: No Loss of Vision: Bilateral Hearing Impairment: Denies Cancer: No Psychosocial: No Integumentary: No Blood Disorders: No Adverse Reaction/Blood Tranf: No (N/A) Family Medical History No Pertinent Family Hx Physical Exam Vital Signs Vital Signs - First Documented 07/27/18 09:31 Temp 98.0 Pulse 77 Resp 16 B/P (MAP) 146/82 (103) Pulse Ox 100 O2 Delivery Room Air Capillary Refill : Less Than 3 Seconds Height, Weight, BMI Height: 5'10.00" Weight: 150lbs. 2.0oz. 68.639774ev; 22.1 BMI Method:Stated General Appearance: No Apparent Distress, WD/WN HEENT: Pharynx Normal, Moist Mucous Membranes Respiratory: Chest Non Tender, Lungs Clear, Normal Breath Sounds, No Accessory Muscle Use, No Respiratory Distress Cardiovascular: Regular Rate, Rhythm, No Edema, Normal Peripheral Pulses Gastrointestinal: Normal Bowel Sounds, No Organomegaly, Soft, Tenderness (very mild tenderness in the epigastric region) Neurologic/Psychiatric: Alert, Oriented x3 Skin: Normal Color, Warm/Dry Progress/Results/Core Measures Results/Orders Lab Results Laboratory Tests Test 07/27/18 09:55 07/27/18 10:59 Range/Units White Blood Count 9.4 4.3-11.0 10^3/uL Red Blood Count 4.66 4.35-5.85 10^6/uL Hemoglobin 15.5 13.3-17.7 G/DL Hematocrit 45 40-54 % Mean Corpuscular Volume 96 80-99 FL Mean Corpuscular Hemoglobin 33 25-34 PG Mean Corpuscular Hemoglobin Concent 35 32-36 G/DL Red Cell Distribution Width 14.2 10.0-14.5 % Platelet Count 236 130-400 10^3/uL Mean Platelet Volume 9.4 7.4-10.4 FL Neutrophils (%) (Auto) 60 42-75 % Lymphocytes (%) (Auto) 27 12-44 % Monocytes (%) (Auto) 10 0-12 % Eosinophils (%) (Auto) 4 0-10 % Basophils (%) (Auto) 0 0-10 % Neutrophils # (Auto) 5.6 1.8-7.8 X 10^3 Lymphocytes # (Auto) 2.5 1.0-4.0 X 10^3 Monocytes # (Auto) 0.9 0.0-1.0 X 10^3 Eosinophils # (Auto) 0.3 0.0-0.3 10^3/uL Basophils # (Auto) 0.0 0.0-0.1 10^3/uL Prothrombin Time 12.7 12.2-14.7 SEC INR Comment 1.0 0.8-1.4 Activated Partial Thromboplast Time 25 24-35 SEC Sodium Level 137 135-145 MMOL/L Potassium Level 5.0 3.6-5.0 MMOL/L Chloride Level 104 98-107 MMOL/L Carbon Dioxide Level 25 21-32 MMOL/L Anion Gap 8 5-14 MMOL/L Blood Urea Nitrogen 24 H 7-18 MG/DL Creatinine 0.98 0.60-1.30 MG/DL Estimat Glomerular Filtration Rate > 60 BUN/Creatinine Ratio 24 Glucose Level 101 70-105 MG/DL Calcium Level 9.1 8.5-10.1 MG/DL Corrected Calcium 9.2 8.5-10.1 MG/DL Magnesium Level 2.4 1.8-2.4 MG/DL Total Bilirubin 1.8 H 0.1-1.0 MG/DL Aspartate Amino Transf (AST/SGOT) 141 H 5-34 U/L Alanine Aminotransferase (ALT/SGPT) 60 H 0-55 U/L Alkaline Phosphatase 113 40-136 U/L Myoglobin 31.4 10.0-92.0 NG/ML Troponin I < 0.30 < 0.30 <0.30 NG/ML Total Protein 6.9 6.4-8.2 GM/DL Albumin 3.9 3.2-4.5 GM/DL Lipase 22 8-78 U/L My Orders Orders - ETELVINA ALFORD Cbc With Automated Diff (07/27/18 09:42) Magnesium (07/27/18 09:42) Chest 1 View, Ap/Pa Only (07/27/18 09:42) Ekg Tracing (07/27/18 09:42) Cardiac Profile 1 (07/27/18 09:42) Comprehensive Metabolic Panel (07/27/18 09:42) Myoglobin Serum (07/27/18 09:42) Protime With Inr (07/27/18 09:42) Partial Thromboplastin Time (07/27/18 09:42) O2 (07/27/18 09:42) Monitor-Rhythm Ecg Trace Only (07/27/18 09:42) Lipid Panel (07/28/18 06:00) Aspirin Chewable Tablet (Baby Aspirin Ch (07/27/18 09:45) Saline Lock/Iv-Start (07/27/18 09:42) Lipase (07/27/18 09:42) O2 (07/27/18 09:42) Lidocaine 2% Viscous 15 Ml (Xylocaine Vi (07/27/18 09:45) Famotidine Tablet (Pepcid Tablet) (07/27/18 09:42) Antacid Suspension (Mylanta Suspension (07/27/18 09:45) Troponin I (07/27/18 11:00) Medications Given in ED Current Medications Medications Dose Ordered Sig/Ena Route Start Time Stop Time Status Last Admin Dose Admin Al Hydrox/Mg Hydrox/Simethicone 30 ml ONCE ONCE PO 07/27/18 09:45 07/27/18 09:46 DC 07/27/18 09:57 30 ML Aspirin 324 mg ONCE ONCE PO 07/27/18 09:45 07/27/18 09:46 DC 07/27/18 09:56 324 MG Lidocaine HCl 15 ml ONCE ONCE PO 07/27/18 09:45 07/27/18 09:46 DC 07/27/18 09:57 15 ML Vital Signs/I&O 07/27/18 09:31 Temp 98.0 Pulse 77 Resp 16 B/P (MAP) 146/82 (103) Pulse Ox 100 O2 Delivery Room Air Blood Pressure Mean: 103 Progress Progress Note : Time: 09:48 Progress Note Aspirin and a GI cocktail. If his symptoms go away completely then we'll consider this most likely to be GI. We'll check some labs and lipase and to assuage just his very realistic concerns with his history of coronary artery disease we can do a two-hour rule out troponin. He had an ultrasound of his gallbladder July 18, little over a week ago that was without stones or inflammation. It might be reasonable for him to consider a HIDA scan outpatient. Initial EKG is unchanged from previous. Initial ECG Impression Date: Jul 27, 2018 Initial ECG Impression Time: 09:32 Initial ECG Rate: 75 Initial ECG Rhythm: Normal Sinus Initial ECG Intervals: ID ([id number]) Initial ECG Impression: Nonspecific Changes Initial ECG Comparisson: Unchanged Comment First-degree AV block and right bundle branch block seen on previous EKGs. Diagnostic Imaging Diagonstic Imaging: Xray Plain Films/CT/US/NM/MRI: chest (1v) Comments [facility] [place], [place] NAME: ESTRELLITA KERNS [facility] REC#: [id number] PT STATUS: REG ER : 1940 PHYSICIAN: ETELVINA ALFORD MD ADMIT DATE: 07/27/18/ER Draft Date of Exam:07/27/18 CHEST 1 VIEW, AP/PA ONLY PATIENT HISTORY: Epigastric pain, chest pain. TECHNIQUE: Single frontal view of the chest. COMPARISON: 08/11/2016. FINDINGS: There are somewhat reticular interstitial opacities in the lung bases which appear mildly increased compared to the prior exam. No significant pleural effusion is seen. There is no pneumothorax. Cardiac silhouette is normal in size. No focal airspace consolidation is seen. There are old bilateral rib fractures. IMPRESSION: Bibasilar interstitial opacities are thought to be chronic, may represent scarring/fibrotic change. No focal airspace consolidation is seen. Dictated on workstation # [id number] Dict: 07/27/18 1018 Trans: 07/27/18 1052 [facility] [id number] Interpreted by: JESUS CHAMBERLAIN MD Electronically signed by: Reviewed: Reviewed by Me Departure Impression Primary Impression: GERD (gastroesophageal reflux disease) Qualified Codes: K21.9 - Gastro-esophageal reflux disease without esophagitis Disposition: HOME, SELF-CARE Condition: Stable Departure-Patient Inst. Decision time for Depature: 11:54 Referrals: BRYON MARIN MD (PCP/Family) Primary Care Physician Patient Instructions: Acid Reflux (Gastroesophageal Reflux Disease), Adult (DC) Add. Discharge Instructions: You can use the Pepcid or omeprazole as prescribed. Use the Carafate 1 tablet half hour prior to meals and at bedtime for the next 2 weeks to help coat the lining of your stomach. You can follow-up with Dr. Sullivan or your primary care provider to discuss whether a HIDA scan or further workup should be done to look at the gallbladder function. I suggest that you also follow-up early next week with your engine turner to discuss whether or not there is any further workup needing to be done for your heart. All discharge instructions reviewed with patient and/or family. Voiced understanding. Scripts Sucralfate (Carafate) 1 Gm Tablet 1 GM PO QIDACHS for 14 Days, #56 TAB 0 Refills Prov: ETELVINA ALFORD 07/27/18 ETELVINA ALFORD Jul 27, 2018 09:50
[2018-07-27 10:03] LABS: BASOPHILS % (AUTO) 0 % (0-10); EOSINOPHILS # (AUTO) 0.3 10^3/uL (0.0-0.3); EOSINOPHILS % (AUTO) 4 % (0-10); HEMATOCRIT 45 % (40-54); HEMOGLOBIN 15.5 G/DL (13.3-17.7); LYMPHOCYTES # (AUTO) 2.5 X 10^3 (1.0-4.0); LYMPHOCYTES % (AUTO) 27 % (12-44); MEAN CORPUSCULAR HEMOGLOBIN 33 PG (25-34); MEAN CORPUSCULAR HGB CONC 35 G/DL (32-36); MEAN CORPUSCULAR VOLUME 96 FL (80-99); MEAN PLATELET VOLUME 9.4 FL (7.4-10.4); MONOCYTES # (AUTO) 0.9 X 10^3 (0.0-1.0); MONOCYTES % (AUTO) 10 % (0-12); NEUTROPHILS # (AUTO) 5.6 X 10^3 (1.8-7.8); NEUTROPHILS % (AUTO) 60 % (42-75); PLATELET COUNT 236 10^3/uL (130-400); RED BLOOD COUNT 4.66 10^6/uL (4.35-5.85); RED CELL DISTRIBUTION WIDTH 14.2 % (10.0-14.5); WHITE BLOOD COUNT 9.4 10^3/uL (4.3-11.0)
[2018-07-27 10:20] LABS: PROTHROMBIN TIME PATIENT 12.7 SEC (12.2-14.7)
[2018-07-27 10:22] LABS: ALANINE AMINOTRANSFERASE 60 U/L (0-55); ALBUMIN 3.9 GM/DL (3.2-4.5); ALKALINE PHOSPHATASE 113 U/L (40-136); BILIRUBIN,TOTAL 1.8 MG/DL (0.1-1.0); BUN/CREATININE RATIO 24; CALCIUM 9.1 MG/DL (8.5-10.1); CARBON DIOXIDE 25 MMOL/L (21-32); CHLORIDE 104 MMOL/L (98-107); CREATININE SERUM 0.98 MG/DL (0.60-1.30); GFR ESTIMATED > 60; GLUCOSE 101 MG/DL (70-105); LIPASE 22 U/L (8-78); MAGNESIUM 2.4 MG/DL (1.8-2.4); SODIUM 137 MMOL/L (135-145); TOTAL PROTEIN 6.9 GM/DL (6.4-8.2)
[2018-07-27 10:29] LABS: MYOGLOBIN SERUM 31.4 NG/ML (10.0-92.0)
--- NOTE | 2018-07-27 10:53 | Diagnostic Imaging Report ---
PATIENT HISTORY: Epigastric pain, chest pain. TECHNIQUE: Single frontal view of the chest. COMPARISON: 08/11/2016. FINDINGS: There are somewhat reticular interstitial opacities in the lung bases which appear mildly increased compared to the prior exam. No significant pleural effusion is seen. There is no pneumothorax. Cardiac silhouette is normal in size. No focal airspace consolidation is seen. There are old bilateral rib fractures. IMPRESSION: Bibasilar interstitial opacities are thought to be chronic, may represent scarring/fibrotic change. No focal airspace consolidation is seen. Dictated by: Dictated on workstation # [id number]
[2018-07-27] MEDS ORDERED: SUCR1TAB36 PO ×2 (11:56)
[2018-07-27 12:07] VITALS: BP 126/64
[2018-07-27] MEDS ORDERED: LISI10TA2 PO ×2 (14:38)
[2018-07-27] MEDS ORDERED: OMEP40CA36 PO ×2 (14:38)
== END 2018-07-27 12:07 | disposition home or self-care (01) ==
LOC: EDUNIT# 09:31 → ER 09:32
DX: K21.9 Gastro-esophageal reflux disease without esophagitis (principal); J44.9 Chronic obstructive pulmonary disease, unspecified; I48.91 Unspecified atrial fibrillation; I25.10 Atherosclerotic heart disease of native coronary artery without angina pectoris; I10 Essential (primary) hypertension; E78.00 Pure hypercholesterolemia, unspecified; Z87.448 Personal history of other diseases of urinary system; Z87.442 Personal history of urinary calculi; Z88.8 Allergy status to other drugs, medicaments and biological substances; Z79.82 Long term (current) use of aspirin; Z79.01 Long term (current) use of anticoagulants; Z95.5 Presence of coronary angioplasty implant and graft; Z98.890 Other specified postprocedural states; Z79.51 Long term (current) use of inhaled steroids
CPT/HCPCS: 36415; 71045; 80053; 83690; 83735; 83874; 84484; 85025; 85610; 85730; 93005; 93041

== ENCOUNTER 2018-07-27 13:38 | Inpatient (IN) | payer MEDICARE ==
[~2018-07-27] VITALS: Ht 177.8 cm; Wt 68.1 kg
[~2018-07-27 13:38] MED LIST changes: +SUCR1TAB36 PO
[2018-07-27] MEDS ORDERED: LIDOCAINE 2% VISCOUS 15 ML UDC PO PRN (14:30)
[2018-07-27] MEDS ORDERED: ANTACID SUSP 30 ML UDC (MYLANTA) PO PRN ×2 (14:30→16:45)
[2018-07-27] MEDS ORDERED: PANTOPRAZOLE 40 MG (PROTONIX) VIAL IV NR (14:30)
[2018-07-27] MEDS ORDERED: LISI10TA2 PO ×2 (14:38)
[2018-07-27] MEDS ORDERED: OMEP40CA36 PO ×2 (14:38)
--- NOTE | 2018-07-27 14:44 | History & Physical-Hospitalist ---
History of Present Illness HPI/Chief Complaint Pt is a 78yoCM with a PMH of CAD s/p stenting, HTN, HLD who presented to the ER due to epigastric pain. He has an extensive cardiac history with multiple stents and was worried his pain could be due to a cardiac cause. He has had intermittent epigastric pain for the past 4-6 weeks and has been undergoing workup for this as an outpatient. He had an abd usg that revealed a normal gallbladder on 07/18/18. He was seen in the ER earlier today for evaluation of this and had two negative troponins and was DC home after pain resolved with a GI cocktail. Shortly after that his pain returned and he returned to the ER to be evaluated and he was direct admitted for ACS rule out. He does states that it got worse after he drank bourbon last night that he had been avoiding previously. Source: patient Exam Limitations: no limitations Date Seen 07/27/18 Time Seen by a Provider: 14:30 Attending Physician Elieser Atkinson MD PCP Elieser Atkinson MD Referring Physician Date of Admission Jul 27, 2018 at 13:38 Home Medications & Allergies Home Medications Reviewed patient Home Medication Reconciliation performed by pharmacy medication reconciliations service desk technician and/or nursing. Patients Allergies have been reviewed. Allergies Allergies Coded Allergies ticlopidine (Verified Allergy, Mild, HIVES, 05/21/18) Past Ktcsfpu-Oppfhh-Ldccjn Hx Past Med/Social Hx: Reviewed Nursing Past Med/Soc Hx, Reviewed and Corrections made Patient Social History Alcohol Use: Occasionally Uses Alcohol Beverage of Choice: [place] Recreational Drug Use: No Smoking Status: Former Smoker Former Smoker, Quit: Mar 06, 1977 Physical Abuse Screen: No Sexual Abuse: No Recent Foreign Travel: No Contact w/other who traveled: No Recent Hopitalizations: No Immunizations Up To Date Tetanus Booster (TDap): Unknown Date of Pneumonia Vaccine: Jun 06, 2016 Date of Influenza Vaccine: May 14, 2018 Seasonal Allergies Seasonal Allergies: No Past Medical History Surgeries: Cardiac, Coronary Stent Respiratory: COPD Currently Using CPAP: No Currently Using BIPAP: No Cardiac: Atrial Fibrillation, Coronary Artery Disease, High Cholesterol, Hypertension Reproductive: No Sexually Transmitted Disease: No HIV/AIDS: No Genitourinary: Benign Prostatic Hyperpl, Kidney Stones Musculoskeletal: Chronic Back Pain Loss of Vision: Bilateral Hearing Impairment: Denies History of Blood Disorders: No Adverse Reaction to Blood Hui: No (N/A) Family History Reviewed Nursing Family Hx No Pertinent Family Hx Review of Systems Constitutional: No chills, No fever EENTM: No blurred vision, No double vision, No nose congestion, No throat pain Respiratory: No cough, No dyspnea on exertion, No short of breath Cardiovascular: No chest pain, No edema, No palpitations Gastrointestinal: see HPI, abdominal pain Genitourinary: No dysuria, No frequency Musculoskeletal: No joint pain, No muscle pain Skin: No lesions, No rash Psychiatric/Neurological: Denies Headache, Denies Numbness, Denies Tingling Physical Exam Physical Exam Vital Signs Vital Signs - First Documented 07/27/18 07/27/18 07/27/18 14:00 15:20 16:00 Temp 100.7 Pulse 78 Resp 22 B/P (MAP) 110/61 (77) Pulse Ox 94 O2 Delivery Room Air Capillary Refill : Height, Weight, BMI Height: 5'10.00" Weight: 150lbs. 2.0oz. [id number]; 21.5 BMI Method:Stated General Appearance: No Apparent Distress, WD/WN HEENT: PERRL/EOMI, Moist Mucous Membranes Neck: Non Tender, Supple Respiratory: Lungs Clear, No Respiratory Distress Cardiovascular: Regular Rate, Rhythm, No Murmur Gastrointestinal: Normal Bowel Sounds, Soft, Tenderness (mild tenderness in the epigastrium to deep palpation) Extremity: Normal Capillary Refill, No Calf Tenderness Neurologic/Psychiatric: Alert, Oriented x3, Normal Mood/Affect Skin: Normal Color, Warm/Dry Results Results/Procedures Labs Laboratory Tests 07/28/18 05:34 Patient resulted labs reviewed. Imaging: Reviewed Imaging Report Assessment/Plan Admission Diagnosis Rule out ACS Admission Status: Observation Diagnosis/Problems Diagnosis/Problems (1) Epigastric abdominal pain Status: Acute Assessment & Plan: Atypical in nature but given failed outpatient management will admit for ACS rule out Troponin ordered Repeat GI Cocktail Discussed with Surgery and will get HIDA this evening Follow up labs in AM given mild transaminitis with hyperbilirubinemia Clinical Quality Measures DVT/VTE Risk/Contraindication: Risk Factor Score Per Nursin RFS Level Per Nursing on Admit: 2=Moderate TIMO CHAU MD Jul 27, 2018 14:44
[2018-07-27 16:00] VITALS: BP 110/61
[2018-07-27] MEDS: SUCRALFATE 1 GM (CARAFATE) TAB PO SCH ×2 (16:29→21:49)
[2018-07-27] MEDS ORDERED: ONDANSETRON 4 MG/2 ML (SDV) Z0FRAN IV PRN (16:45)
[2018-07-27] MEDS ORDERED: MILK OF MAGNESIA 400 MG/5 ML 30 ML UDC PO PRN (16:45)
[2018-07-27] MEDS ORDERED: BENZONATATE 100 MG (TESSALON) CAPSULE PO PRN (16:45)
[2018-07-27] MEDS ORDERED: MELATONIN 3 MG TABLET PO PRN (16:45)
[2018-07-27] MEDS ORDERED: ACETAMINOPHEN 500 MG TAB (TYLENOL) PO PRN (16:45)
[2018-07-27] MEDS ORDERED: ACETAMINOPHEN 325 MG TABLET PO PRN (17:00)
[2018-07-27] MEDS ORDERED: CATHETER FLUSH 10 ML SYR IV PRN (17:00)
[2018-07-27] MEDS ORDERED: morphine INJ 4 MG/ML 1 ML (VIAL/SYRINGE) ONE (17:56)
[2018-07-27] MEDS ORDERED: morphine INJ 4 MG/ML 1 ML (VIAL/SYRINGE) IVP ONE (18:15)
[2018-07-27 19:29] VITALS: BP 125/77
--- NOTE | 2018-07-27 19:33 | Diagnostic Imaging Report ---
INDICATION: Abdominal pain. COMPARISON: Liver and gallbladder sonogram from 07/18/2018. TECHNIQUE: Patient was administered 4.89 mCi Choletec, and imaging over the abdomen was performed. Patient was then administered 2.5 mg morphine sulfate 60 minutes into the exam. After this, an additional 1.1 mCi Choletec was then administered and additional imaging of the abdomen was obtained. FINDINGS: The abdomen was imaged for a total of 120 minutes. There is normal distribution of the radiotracer activity throughout the hepatic parenchyma. There is, however, no evidence of radiotracer activity within the intra- or extra-hepatic biliary ducts, nor within the gallbladder or within the small bowel throughout the entirety of the exam. IMPRESSION: 1. Radiotracer uptake within the liver, but no excretion into the bile ducts. Conceivably, findings could be on the basis of severe congestion secondary to underlying obstruction of the biliary ductal system. Other considerations include severe hepatitis with hepatocyte dysfunction. Correlation with new anatomic imaging is recommended. Dictated by: Dictated on workstation # [id number]
[2018-07-27] MEDS ORDERED: NS IV 1000 ML 1,000 ML ONE (21:30)
[2018-07-27] MEDS: NS IV 1000 ML 1,000 ML IV SCH (21:49)
[2018-07-27] MEDS: CATHETER FLUSH 10 ML SYR IV SCH (21:49)
--- NOTE | 2018-07-27 23:51 | Consultation ---
History of Present Illness History of Present Illness Patient Consulted On(eddy/time) 07/27/18 17:30 Date Seen by Provider: Jul 27, 2018 Time Seen by Provider: 17:30 History of Present Illness Consult requested by Dr. Mcconnell for Epigastric abdominal pain. Patient is a 78 year old male known to me from previous hernia repairs. He began having chest/epigastric abdominal pain this morning which he went to ED for further evaluation. Patient pain was resolved with GI cocktail and negative cardiac workup and was discharged home. Patient later had return of the pain which is in epigastric region. Moderate pain. Nothing seems to be making worse. Gi cocktail improved earlier. Patient has been having these pains on occasion and did have recent u/s of gallbladder demonstrating no stones or evidence of cholecystitis. Patient currently undergoing HIDA scan. Patient AST/ALT and bilirubin elevated. Denies any nausea, vomiting fever sweats chills shortness of breath. Allergies and Home Medications Allergies Coded Allergies: ticlopidine (Verified Allergy, Mild, HIVES, 05/21/18) Home Medications Aspirin 325 Mg Tablet, 325 MG PO DAILY, (Reported) Atorvastatin Calcium 10 Mg Tablet, 10 MG PO DAILY, (Reported) Folic Acid 1 Mg Tablet, 3 MG PO DAILY, (Reported) TAKES 3 (1MG) TABLETS Lisinopril 10 Mg Tablet, 5 MG PO DAILY, (Reported) TAKES 1/2 (10MG) TABLET [place] 3 Polyunsat Fatty Acids 1,000 Mg Cap, 1,000 MG PO DAILY, (Reported) Omeprazole 40 Mg Capsule.dr, 40 MG PO BID, (Reported) Sucralfate 1 Gm Tablet, 1 GM PO QIDACHS Prescribed by: ETELVINA ALFORD on 07/27/18 1156 Patient Home Medication List Home Medication List Reviewed: Yes Past Ecoawjb-Jevfhc-Ujmdnv Hx Patient Social History Alcohol Use: Occasionally Uses Number of Drinks Today: BB Recreational Drug Use: Yes (ETOH) Smoking Status: Former Smoker Former Smoker, Quit: Mar 06, 1977 Recent Foreign Travel: No Contact w/Someone Who Travel: No Recent Hopitalizations: No Physical Abuse Screen: No Sexual Abuse: No Immunizations Up To Date Tetanus Booster (TDap): Unknown Date of Pneumonia Vaccine: Jun 06, 2016 Date of Influenza Vaccine: May 14, 2018 Seasonal Allergies Seasonal Allergies: No Surgeries History of Surgeries: Yes (RIGHT inguinal HERNIA REPAIR X, CARDIAC CATHS-- STENTS X 5, CARDIAC ABLATION) Surgeries: Cardiac, Coronary Stent Respiratory History of Respiratory Disorde: Yes Respiratory Disorders: Chronic Bronchitis, COPD Cardiovascular History of Cardiac Disorders: Yes (STENT X5, CARDIAC ABLATION FOR ATRIAL FIB/ FLUTTER) Cardiac Disorders: Atrial Fibrillation, Coronary Artery Disease, High Cholesterol, Hypertension Neurological History of Neurological Disord: No Reproductive System Hx Reproductive Disorders: No Sexually Transmitted Disease: No HIV/AIDS: No Genitourinary History of Genitourinary Disor: Yes Genitourinary Disorders: Benign Prostatic Hyperpl, Kidney Stones Gastrointestinal History of Gastrointestinal Di: No Musculoskeletal History of Musculoskeletal Dis: Yes Musculoskeletal Disorders: Chronic Back Pain Endocrine History of Endocrine Disorders: No HEENT Loss of Vision: Bilateral Hearing Impairment: Denies Cancer History of Cancer: No Psychosocial History of Psychiatric Problem: No Integumentary History of Skin or Integumenta: No Blood Transfusions History of Blood Disorders: No Adverse Reaction to a Blood Tr: No (N/A) Family Medical History Significant Family History: No Pertinent Family Hx Review of Systems-General Constitutional: no symptoms reported EENTM: no symptoms reported Respiratory: no symptoms reported Cardiovascular: see HPI Gastrointestinal: see HPI Genitourinary: no symptoms reported Musculoskeletal: no symptoms reported Skin: no symptoms reported Psychiatric/Neurological: No Symptoms Reported Physical Exam-General Problems Physical Exam Vital Signs Vital Signs - First Documented 07/27/18 07/27/18 07/27/18 14:00 15:20 16:00 Temp 100.7 Pulse 78 Resp 22 B/P (MAP) 110/61 (77) Pulse Ox 94 O2 Delivery Room Air Capillary Refill : General Appearance: no apparent distress HEENT: PERRL/EOMI, normal ENT inspection Neck: supple Respiratory: chest non-tender, no respiratory distress, no accessory muscle use Cardiovascular: regular rate, rhythm Gastrointestinal: soft, tenderness (minimal epigastric) Rectal: deferred Back: no CVA tenderness Extremities: non-tender Neurologic/Psychiatric: 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 nml as tested, no motor/sensory deficits, alert, normal mood/affect, oriented x 3 Skin: normal color, warm/dry Lymphatic: no adenopathy Data Review Labs Laboratory Tests 07/27/18 14:45: Troponin I < 0.30 Assessment/Plan Assessment/Plan Assessment/Plan chest pain/epigastric abdominal pain suspect alcohol gastritis since pain relieved with GI cocktail has had recent gb ultrasound and has elevated AST/ALT, T bili- will get HIDA await HIDA scan results IV fluid, repeat labs in am no surgical intervention at this time Clinical Quality Measures DVT/VTE Risk/Contraindication: Risk Factor Score Per Nursin RFS Level Per Nursing on Admit: 2=Moderate ORVILLE SULLIVAN DO Jul 27, 2018 23:51
[2018-07-28] VITALS: BP 96/60
[2018-07-28 04:00] VITALS: BP 103/60
[2018-07-28] MEDS: CATHETER FLUSH 10 ML SYR IV SCH (05:22)
[2018-07-28 05:58] LABS: BASOPHILS % (AUTO) 0 % (0-10); EOSINOPHILS % (AUTO) 0 % (0-10); HEMATOCRIT 42 % (40-54); HEMOGLOBIN 14.3 G/DL (13.3-17.7); LYMPHOCYTES % (AUTO) 4 % (12-44); MEAN CORPUSCULAR HEMOGLOBIN 33 PG (25-34); MEAN CORPUSCULAR HGB CONC 34 G/DL (32-36); MEAN CORPUSCULAR VOLUME 98 FL (80-99); MEAN PLATELET VOLUME 9.7 FL (7.4-10.4); MONOCYTES # (AUTO) 1.5 X 10^3 (0.0-1.0); MONOCYTES % (AUTO) 6 % (0-12); NEUTROPHILS # (AUTO) 22.4 X 10^3 (1.8-7.8); NEUTROPHILS % (AUTO) 90 % (42-75); PLATELET COUNT 179 10^3/uL (130-400); RED BLOOD COUNT 4.28 10^6/uL (4.35-5.85); RED CELL DISTRIBUTION WIDTH 14.8 % (10.0-14.5); WHITE BLOOD COUNT 24.9 10^3/uL (4.3-11.0)
[2018-07-28 06:16] LABS: ALANINE AMINOTRANSFERASE 474 U/L (0-55); ALBUMIN 3.5 GM/DL (3.2-4.5); ALKALINE PHOSPHATASE 171 U/L (40-136); BILIRUBIN,TOTAL 7.2 MG/DL (0.1-1.0); BUN/CREATININE RATIO 22; CALCIUM 8.6 MG/DL (8.5-10.1); CARBON DIOXIDE 19 MMOL/L (21-32); CHLORIDE 107 MMOL/L (98-107); CREATININE SERUM 1.02 MG/DL (0.60-1.30); GFR ESTIMATED > 60; GLUCOSE 106 MG/DL (70-105); POTASSIUM 5.4 MMOL/L (3.6-5.0); SODIUM 136 MMOL/L (135-145)
[2018-07-28 06:40] LABS: LYMPHOCYTES % (MANUAL) 6 %; MONOCYTES % (MANUAL) 4 %; NEUTROPHILS % (MANUAL) 90 %
[2018-07-28] MEDS: SUCRALFATE 1 GM (CARAFATE) TAB PO SCH (06:45)
[2018-07-28] MEDS: NS IV 1000 ML 1,000 ML IV SCH (06:46)
[2018-07-28 08:00] VITALS: BP 108/64
[2018-07-28] MEDS ORDERED: PANTOPRAZOLE 40 MG (PROTONIX) VIAL IV SCH (09:00)
--- NOTE | 2018-07-28 09:21 | Discharge Summary-Hospitalist ---
Diagnosis/Chief Complaint Date of Admission Jul 27, 2018 at 13:38 Date of Discharge Discharge Date: Jul 28, 2018 Discharge Diagnosis Acute hepatitis with hyperbilirubinemia Discharge Summary Procedures/Consulations Dr Hsieh- GI Discharge Physical Exam Allergies: Coded Allergies: ticlopidine (Verified Allergy, Mild, HIVES, 05/21/18) Vitals & I&Os Vital Signs Date Time Temp Pulse Resp B/P (MAP) Pulse Ox O2 Delivery O2 Flow Rate FiO2 07/28/18 07:00 70 07/28/18 04:00 95.9 20 103/60 (74) 98 Room Air General Appearance: No Apparent Distress, WD/WN Neurologic/Psychiatric: Alert, Oriented x3 Hospital Course Pt was admitted originally to observation status for epigastric pain. he had been undergoing outpatient workup for this and had had a negative gallbladder usg on 07/08. He had a HIDA scan last night that was markedly abnormal with no distribution of dye past the liver. Yesterday he had a mild transaminitis and hyperbilirubinemia of 1.2. This morning his labs were significantly worse with a bilirubin of 7.2 and AST/ALT elevations in the the 400s. He was admitted to inpatient status due to acute hepatitis and concerns for cholangitis. He was transferred to tertiary center for GI evaluation and ERCP. Labs (last 24 hrs) Laboratory Tests 07/27/18 14:45: Troponin I < 0.30 07/28/18 05:34: White Blood Count 24.9H, Red Blood Count 4.28L, Hemoglobin 14.3, Hematocrit 42, Mean Corpuscular Volume 98, Mean Corpuscular Hemoglobin 33, Mean Corpuscular Hemoglobin Concent 34, Red Cell Distribution Width 14.8H, Platelet Count 179, Mean Platelet Volume 9.7, Neutrophils (%) (Auto) 90H, Lymphocytes (%) (Auto) 4L , Monocytes (%) (Auto) 6, Eosinophils (%) (Auto) 0, Basophils (%) (Auto) 0, Neutrophils # (Auto) 22.4H, Lymphocytes # (Auto) 1.0, Monocytes # (Auto) 1.5H, Eosinophils # (Auto) 0.0, Basophils # (Auto) 0.0, Neutrophils % (Manual) 90, Lymphocytes % (Manual) 6, Monocytes % (Manual) 4, Sodium Level 136, Potassium Level 5.4H, Chloride Level 107, Carbon Dioxide Level 19L, Anion Gap 10, Blood Urea Nitrogen 22H, Creatinine 1.02, Estimat Glomerular Filtration Rate > 60, BUN /Creatinine Ratio 22, Glucose Level 106H, Calcium Level 8.6, Corrected Calcium 9.0, Total Bilirubin 7.2#H, Aspartate Amino Transf (AST/SGOT) 479H, Alanine Aminotransferase (ALT/SGPT) 474H, Alkaline Phosphatase 171H, Total Protein 6.0L , Albumin 3.5 Patient resulted labs reviewed. Pending Labs Laboratory Tests 07/28/18 05:34: White Blood Count 24.9, Red Blood Count 4.28, Hemoglobin 14.3, Hematocrit 42, Mean Corpuscular Volume 98, Mean Corpuscular Hemoglobin 33, Mean Corpuscular Hemoglobin Concent 34, Red Cell Distribution Width 14.8, Platelet Count 179, Mean Platelet Volume 9.7, Neutrophils (%) (Auto) 90, Lymphocytes (%) (Auto) 4, Monocytes (%) (Auto) 6, Eosinophils (%) (Auto) 0, Basophils (%) (Auto) 0, Neutrophils # (Auto) 22.4, Lymphocytes # (Auto) 1.0, Monocytes # (Auto) 1.5, Eosinophils # (Auto) 0.0, Basophils # (Auto) 0.0, Neutrophils % (Manual) 90, Lymphocytes % (Manual) 6, Monocytes % (Manual) 4, Sodium Level 136, Potassium Level 5.4, Chloride Level 107, Carbon Dioxide Level 19, Anion Gap 10, Blood Urea Nitrogen 22, Creatinine 1.02, Estimat Glomerular Filtration Rate > 60, BUN/ Creatinine Ratio 22, Glucose Level 106, Calcium Level 8.6, Corrected Calcium 9.0 , Total Bilirubin 7.2, Aspartate Amino Transf (AST/SGOT) 479, Alanine Aminotransferase (ALT/SGPT) 474, Alkaline Phosphatase 171, Total Protein 6.0, Albumin 3.5 Imaging: Reviewed Imaging Report Discussion & Recommendations Discharge Planning: >30 minutes discharge planning Discharge Home Medications: Active Scripts Active Carafate (Sucralfate) 1 Gm Tablet 1 Gm PO QIDACHS 14 Days Reported Lisinopril 10 Mg Tablet 5 Mg PO DAILY TAKES 1/2 (10MG) TABLET Omeprazole 40 Mg Capsule.dr 40 Mg PO BID Fish Oil 1,000 mg Capsule ([place] 3 Polyunsat Fatty Acids) 1,000 Mg Cap 1,000 Mg PO DAILY Aspirin 325 Mg Tablet 325 Mg PO DAILY Folic Acid 1 Mg Tablet 3 Mg PO DAILY TAKES 3 (1MG) TABLETS Atorvastatin Calcium 10 Mg Tablet 10 Mg PO DAILY Instructions to patient/family Please see electronic discharge instructions given to patient. Clinical Quality Measures DVT/VTE Risk/Contraindication: Risk Factor Score Per Nursin RFS Level Per Nursing on Admit: 2=Moderate Copy Copies To 1: BRYON MARIN MD, KATELYN M MD Jul 28, 2018 09:21
[2018-07-28] MEDS ORDERED: cefTRIAXone FOR IV USE 1,000 MG in NS (IVPB) 50 ML IV SCH (10:00)
--- NOTE | 2018-07-28 11:27 | Progress Note ---
Subjective Date Seen by a Provider: Jul 28, 2018 Time Seen by a Provider: 08:00 Subjective/Events-last exam Patient NPO at this time. No abdominal pain or chest pain at this time. Hida scan with severe congestion secondary to underlying obstruction of the biliary ductal system. or severe hepatitis with hepatocyte dysfunction. Patient AST/ALT/Alk phos and bili increasing and wbc now elevated as well. Denies any n/v fever sweats chills shortness of breath or chest pain. Objective Exam Vital Signs Date Time Temp Pulse Resp B/P (MAP) Pulse Ox O2 Delivery O2 Flow Rate FiO2 07/28/18 08:00 97.6 64 16 108/64 (79) 100 Room Air 07/28/18 07:00 70 07/28/18 04:00 95.9 59 20 103/60 (74) 98 Room Air 07/28/18 01:00 78 07/28/18 00:00 98.9 70 20 96/60 (72) 97 Room Air 07/27/18 19:29 99.5 94 20 125/77 (93) 98 Room Air 07/27/18 19:00 89 07/27/18 16:00 100.7 85 22 110/61 (77) 99 Room Air 07/27/18 15:20 78 07/27/18 14:00 94 Room Air I & O 07/28/18 07:00 Intake Total 1150 ml Balance 1150 ml Capillary Refill : General Appearance: No Apparent Distress, WD/WN HEENT: PERRL/EOMI Neck: Non Tender, Supple Respiratory: No Accessory Muscle Use, No Respiratory Distress Cardiovascular: Regular Rate, Rhythm Gastrointestinal: soft; No tenderness Neurologic/Psychiatric: Alert, Oriented x3, No Motor/Sensory Deficits, Normal Mood/Affect, set off blocker II-XII Norm as Tested Skin: Warm/Dry Lymphatic: No Adenopathy Results Lab Laboratory Tests 07/27/18 14:45: Troponin I < 0.30 07/28/18 05:34: White Blood Count 24.9H, Red Blood Count 4.28L, Hemoglobin 14.3, Hematocrit 42, Mean Corpuscular Volume 98, Mean Corpuscular Hemoglobin 33, Mean Corpuscular Hemoglobin Concent 34, Red Cell Distribution Width 14.8H, Platelet Count 179, Mean Platelet Volume 9.7, Neutrophils (%) (Auto) 90H, Lymphocytes (%) (Auto) 4L , Monocytes (%) (Auto) 6, Eosinophils (%) (Auto) 0, Basophils (%) (Auto) 0, Neutrophils # (Auto) 22.4H, Lymphocytes # (Auto) 1.0, Monocytes # (Auto) 1.5H, Eosinophils # (Auto) 0.0, Basophils # (Auto) 0.0, Neutrophils % (Manual) 90, Lymphocytes % (Manual) 6, Monocytes % (Manual) 4, Sodium Level 136, Potassium Level 5.4H, Chloride Level 107, Carbon Dioxide Level 19L, Anion Gap 10, Blood Urea Nitrogen 22H, Creatinine 1.02, Estimat Glomerular Filtration Rate > 60, BUN /Creatinine Ratio 22, Glucose Level 106H, Calcium Level 8.6, Corrected Calcium 9.0, Total Bilirubin 7.2#H, Aspartate Amino Transf (AST/SGOT) 479H, Alanine Aminotransferase (ALT/SGPT) 474H, Alkaline Phosphatase 171H, Total Protein 6.0L , Albumin 3.5 Assessment/Plan Assessment/Plan Assessment/Plan chest pain/epigastric abdominal pain- resolved biliary obstruction elevated AST/ALT/alk phos/ wbc IV fluid patient needs mrcp or ercp to further evaluate, these are not available here at this time. patient to be transferred to [place] for GI consultation/ercp. patient discussed plan and understands/agrees with plan Transfer arranged. Clinical Quality Measures DVT/VTE Risk/Contraindication: Risk Factor Score Per Nursin RFS Level Per Nursing on Admit: 2=Moderate ORVILLE SULLIVAN DO Jul 28, 2018 11:27
[2018-07-28 13:06] VITALS: BP 108/64
--- OUTSIDE RECORDS SUMMARY | 2018-07-30 15:26 | XMS REPORT | Encounter Summary ---
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 Name Role Phone Elieser Atkinson MD PCP Encounter Details Date Type Department Care Team Description 05/21/2018 Orders Only [facility] Mariana Antonio APRN Encounter for long-term Cardiovascular [address] current use [place] [address] (Primary Dx); [address] [phone] Mixed hyperlipidemia; [address] S/[place] [address] placement [phone] Social History Tobacco Use Types Packs/Day Years [...] Antonio APRN [address] [place] [address] [phone] Name Priority Associated Diagnoses Order Schedule Lipid [...]
--- OUTSIDE RECORDS SUMMARY | 2018-07-30 15:26 | XMS REPORT | Encounter Summary ---
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 [phone] involving [place] coronary [address] [place] [address] without angina pectoris; [phone] S/P coronary artery stent placement; Essential hypertension; [...] note may be different from the original. [facility] Note Appointment Date: 05/16/2018 Elieser Atkinson MD [address] [facility] [address] RE: Waldemar Recinos : 1940 Visit provider: [...] lower extremity edema. He recently saw our concert or lecture hall manager, Dr. Paz, in April 2018. Patient Active Problem List Diagnosis SNOMED CT(R) Mixed hyperlipidemia MIXED HYPERLIPIDEMIA Coronary artery disease involving [place] coronary artery without angina pectoris DISORDER OF [...] Diagnosis Date COPD (chronic obstructive pulmonary disease) ([facility]) 10/31/2016 Coronary artery disease involving [place] coronary artery without angina pectoris 09/14/2015 Diverticulitis Essential hypertension 09/14/2015 Mixed hyperlipidemia 09/14/2015 Paroxysmal atrial fibrillation ([facility]) 2012 Paroxysmal atrial flutter ([facility]) PVC's (premature ventricular contractions) RBBB 09/08/2011 Simple chronic bronchitis ([facility]) 10/12/2017 Past Surgical History: Procedure Laterality Date CARDIAC CATHETERIZATION 03/30/2011 Patent stents in the LAD, CX and RCA w mild instent restenosis throughout the arteries/[place]. CARDIAC CATHETERIZATION 02/17/2000 No evidence of [...] 3 mL 2 (two) times a day. [id number] 1,000-230-60 mg cap Take 1 capsule by [...] Mixed hyperlipidemia Yes Coronary artery disease involving [place] coronary artery of [place] heart without angina pectoris S/P coronary artery stent placement Essential hypertension Paroxysmal atrial fibrillation (HCC) Encounter for therapeutic drug monitoring Impression and Plan: 1) Coronary artery disease s/p stent placement. Last cath in March 2011 demonstrated patent stents to LAD, circumflex and RCA. Patient is asymptomatic with no chest pain or shortness of breath. Last seen by our concert or lecture hall manager Dr. Paz in April 2018 will continue to follow up with annual appointments with our concert or lecture hall manager or sooner if needed for a complete exam and further recommendations. 2) Atrial fibrillation and atrial flutter s/p left atrial ablation with pulmonary vein isolation and cavotricuspid isthmus ablation. Currently asymptomatic with no arrhythmias. 3) Dyslipidemia. Optimally controlled with LDL of 61, HDL of 51 and triglycerides of 61. Continue Atorvastatin 10 mg daily and the excellent diet modifications. Goal LDL <70. Resume [place] 3 supplement. 3) Hypertension. Blood pressure is [...] 11/06/2018 Office Visit Cardiology Mariana Antonio APRN [address] [place] [address] [phone] as of this encounter Visit Diagnoses Diagnosis Mixed hyperlipidemia - Primary Coronary artery disease involving [place] coronary artery of [place] heart without angina pectoris S/P coronary artery stent placement Postsurgical percutaneous transluminal coronary angioplasty status Essential hypertension Unspecified essential hypertension Paroxysmal atrial fibrillation (HCC) Atrial fibrillation Encounter for therapeutic drug monitoring
--- OUTSIDE RECORDS SUMMARY | 2018-07-30 15:26 | XMS REPORT | Encounter Summary ---
Author Author [facility] Organization [facility] Address Unknown Phone Unavailable Care Team Providers Care Cashier Credit Name Role Phone Elieser Atkinson MD PCP Encounter Details Date Type Department Care Team Description 05/09/2018 Orders Only [facility] Mariana Antonio APRN Essential hypertension Cardiovascular [address], [address] (Primary Dx); [place] [address] Mixed hyperlipidemia; [address] [phone] Hyperglycemia [address] [place] [address] Social History Tobacco Use Types Packs/Day Years [...] Antonio APRN [address] [place] [address] [phone] as of this encounter Results * Creatine Kinase (05/14/2018) Creatine Kinase Total 49 45 - 235 [facility] Specimen Blood Narrative Performed At Performing Organization Address City/State/Zipcode Phone Number [facility] [address] [place] [address] * Lipid Panel (05/14/2018) Triglycerides 61 35 - 200 mg/dL [facility] HDL Cholesterol 51 35 - 70 mg/dL [facility] LDL Cholesterol 61 60 - 130 mg/dL [facility] Cholesterol/HDL Ratio 2.4 0.0 - 5.0 [facility] LDL INTERPRETATION [facility] Non-HDL Cholesterol [facility] Cholesterol 124 (A) 130 - 200 [facility] Specimen Blood Narrative Performed At Performing Organization Address [facility] Phone Number [address] [place] [address] * Hemoglobin A1C (05/14/2018) HEMOGLOBIN A1C 5.2 4.0 - 6.0 % [facility] Specimen Blood Narrative Performed At Performing Organization Address [facility] Phone Number [facility] [address] [place] [address] * Glucose (05/14/2018) Glucose 97 60 - 125 mg/dL [facility] Specimen Blood Narrative Performed At Performing Organization Address [facility] Phone Number [address] [place] [address] * Aspartate Aminotransferase (05/14/2018) Aspartate 12 0 - 40 U/L [facility] Aminotransferase Specimen Blood Narrative Performed At Performing Organization Address [facility] Phone Number [address] [place] [address] * Alanine Aminotransferase (05/14/2018) Alanine Aminotransferase 9 9 - 29 U/L [facility] Specimen Blood Narrative Performed At Performing Organization Address [facility] Phone Number [facility] [address] [place] [address] in this encounter Visit Diagnoses Diagnosis Essential hypertension - Primary Unspecified essential hypertension Mixed hyperlipidemia Hyperglycemia Other abnormal glucose
--- OUTSIDE RECORDS SUMMARY | 2018-07-30 15:26 | XMS REPORT | Encounter Summary ---
Author Author [facility] Organization [facility] Address Unknown Phone Unavailable Care Team Providers Care Account Manager Relief Name Role Phone Elieser Atkinson MD PCP Encounter Details Date Type Department Care Team Description 07/27/2018 Documentation [facility] [place], Mk Shine MD Cardiovascular [address] [facility] [address] [address] [place] [address] [address] [place] [address] [phone] Social History Tobacco Use Types Packs/Day Years Used Date Former Smoker Cigarettes 1.5 30 Quit: 08/21/1974 Smokeless Tobacco: Never Used Alcohol Use Drinks/Week oz/Week Comments Yes 21 Standard 12.6 drinks or equivalent Sex Assigned at Date Recorded Not on file as of this encounter Plan of Treatment Date Type Specialty Care Team Description 11/06/2018 Office Visit Cardiology Mariana Antonio, LABEL REWINDER [address] [facility], [facility] [address] [place] [address] [phone] as of this encounter Procedures Procedure Name Priority Date/Time Associated Diagnosis Comments LAB OUTSIDE RECORD Routine 07/27/2018 12:00 AM SEMICONDUCTOR WAFERS SAW OPERATOR in this encounter Results * Lab Outside Record (07/27/2018) Narrative Performed At in this encounter Visit Diagnoses Not on filein this encounter
--- OUTSIDE RECORDS SUMMARY | 2018-07-30 15:26 | XMS REPORT | Encounter Summary ---
Author Author [facility] Organization [facility] Address Unknown Phone Unavailable Care Team Providers Care Apprentice Technician Name Role Phone Elieser Atkinson MD PCP Encounter Details Date Type Department Care Team Description 05/14/2018 Orders Only [facility] Gus Humphrey MD Essential hypertension; Cardiovascular [address] Mixed hyperlipidemia; [address] Hyperglycemia [address] [place] [address] [address] [place] [address] [phone] Social History Tobacco Use Types Packs/Day Years Used Date Former Smoker Cigarettes 1.5 30 Quit: 08/21/1974 Smokeless Tobacco: Never Used Alcohol Use Drinks/Week oz/Week Comments Yes 21 Standard 12.6 drinks or equivalent Sex Assigned at Date Recorded Not on file as of this encounter Plan of Treatment Date Type Specialty Care Team Description 11/06/2018 Office Visit Cardiology Mariana Antonio, DATABASES COMPUTER CONSULTANT [address] [place] [address] [phone] as of this encounter Procedures Procedure Name [...] Blood Narrative Performed At Performing Organization Address [facility] Phone Number RL [address] [place] [address] * Lipid Panel (05/14/2018) Triglycerides 61 35 - 200 mg/dL [facility] HDL Cholesterol 51 35 - 70 mg/dL [facility] LDL Cholesterol 61 60 - 130 mg/dL [facility] Cholesterol/HDL Ratio 2.4 0.0 - 5.0 [facility] LDL INTERPRETATION [facility] Non-HDL Cholesterol [facility] Cholesterol 124 (A) 130 - 200 [facility] Specimen Blood Narrative Performed At Performing Organization Address [facility] Phone Number RL [address] [place] [address] * Hemoglobin A1C (05/14/2018) HEMOGLOBIN A1C 5.2 4.0 - 6.0 % [facility] Specimen Blood Narrative Performed At Performing Organization Address [facility] Phone Number RL [address] [place] [address] * Glucose (05/14/2018) Glucose 97 60 - 125 mg/dL [facility] Specimen Blood Narrative Performed At Performing Organization Address [facility] Phone Number RL [address] [place] [address] * Aspartate Aminotransferase (05/14/2018) Aspartate 12 0 - 40 U/L [facility] Aminotransferase Specimen Blood Narrative Performed At Performing Organization Address [facility] Phone Number RL [address] [place] [address] * Alanine Aminotransferase (05/14/2018) Alanine Aminotransferase 9 9 - 29 U/L [facility] Specimen Blood Narrative Performed At Performing Organization Address City/State/Zipcode Phone Number [address] [place] [address] in this encounter Visit Diagnoses Diagnosis Essential hypertension Unspecified essential hypertension Mixed hyperlipidemia Hyperglycemia Other abnormal glucose
--- OUTSIDE RECORDS SUMMARY | 2018-07-30 15:26 | XMS REPORT | Clinical Summary ---
Author Author [facility] Organization [facility] Address Unknown Phone Unavailable Care Team Providers Care Bottle And Glass Inspector Name Role Phone Elieser Atkinson MD PCP [...] 04/01/20 Active oral route every day 11 [id number] Take 1 capsule by mouth Active o-ast [...] Problems Problem Noted Date Simple chronic bronchitis ([facility]) 10/12/2017 COPD (chronic obstructive pulmonary disease) ([facility]) 10/31/2016 Mixed hyperlipidemia 09/14/2015 Coronary artery disease involving [place] coronary artery without angina pectoris Essential hypertension 09/14/2015 Paroxysmal atrial flutter (HCC) Paroxysmal atrial fibrillation (HCC) Overview: PAF and flutter/S/P RFA 2013 S/P coronary artery stent placement Overview: Multiple PCI Encounters Date Type Specialty Care Team Description 07/27/2018 Documentation Cardiology Mk Paz MD 05/21/2018 Orders Only Cardiology Mariana Antonio APRN Encounter for long-term current use of medication (Primary Dx); Mixed hyperlipidemia; S/P coronary artery stent placement 05/16/2018 Office Visit Cardiology Mariana Antonio APRN Mixed hyperlipidemia (Primary Dx); Coronary artery disease involving [place] coronary artery of [place] heart without angina pectoris; S/P coronary artery [...] [birth year]. (Age 85) Mother Cause of was [place] at age 89. (Age 89) Social History [...] Office Visit Cardiology Mariana Antonio APRN [address] [place] [address] [phone] Health Maintenance Due Date Last Done Comments Medicare Annual Wellness 1940 Spirometry # 1940 Td # 1940 Zoster Vaccine# (1 of 2) 1991 Depression Screening 2006 PHQ-9 # Fall Risk Assessment # 2006 Pneumococcal Immunization 2006 65+ (1 of 2 - PCV13) Influenza Vaccine (#1) 2018 05/20/2017 Procedures Procedure Name Priority Date/Time Associated Diagnosis Comments LAB OUTSIDE RECORD Routine 07/27/2018 12:00 AM HEEL BREASTER CREATINE KINASE Routine 05/14/2018 Essential hypertension Results [...] section. from Last 3 Months Results * Lab Outside Record (07/27/2018) Narrative Performed At * Lipid Panel (05/14/2018) Triglycerides 61 35 - 200 mg/dL [facility] HDL Cholesterol 51 35 - 70 mg/dL [facility] LDL Cholesterol 61 60 - 130 mg/dL [facility] Cholesterol/HDL Ratio 2.4 0.0 - 5.0 [facility] LDL INTERPRETATION [facility] Non-HDL Cholesterol [facility] Cholesterol 124 (A) 130 - 200 [facility] Specimen Blood Narrative Performed At Performing Organization Address City/State/Zipcode Phone Number RL [address] [place] [address] * Hemoglobin A1C (05/14/2018) HEMOGLOBIN A1C 5.2 4.0 - 6.0 % [facility] Specimen Blood Narrative Performed At Performing Organization Address [facility] Phone Number [address] [place] [address] * Glucose (05/14/2018) Glucose 97 60 - 125 mg/dL [facility] Specimen Blood Narrative Performed At Performing Organization Address [facility] Phone Number [address] [place] [address] * Creatine Kinase (05/14/2018) Creatine Kinase Total 49 45 - 235 [facility] Specimen Blood Narrative Performed At Performing Organization Address [facility] Phone Number [address] [place] [address] * Aspartate Aminotransferase (05/14/2018) Aspartate 12 0 - 40 U/L [facility] Aminotransferase Specimen Blood Narrative Performed At Performing Organization Address [facility] Phone Number [address] [place] [address] * Alanine Aminotransferase (05/14/2018) Alanine Aminotransferase 9 9 - 29 U/L [facility] Specimen Blood Narrative Performed At Performing Organization Address [facility] Phone Number [address] [place] [address] from Last 3 Months
--- OUTSIDE RECORDS SUMMARY | 2018-07-30 15:27 | XMS REPORT | Continuity of Care Document ---
Author Author [facility] Organization [facility] Address Unknown Phone Unavailable Allergies Active Description Code Type Severity Reaction Onset Reported/Identified Relationship to Patient Clinical Status Yes ticlopidine [id number] Drug Allergy Unknown N/A 03/06/2017 Yes ticlopidine [id number] Drug Allergy Mild HIVES 05/21/2018 Medications There is no data. Problems Date Dx Coded Attending Type Code Diagnosis Diagnosed By 06/13/2013 GOGO KELLY DO V04.81 FLU SHOT 08/23/2013 FRANNY STAUFFER MD Ot 807.00 FRACTURE RIB NOS-CLOSED 08/23/2013 FRANNY STAUFFER MD Ot 959.11 OTH INJURY OF CHEST [...] APRN Ot R05 COUGH 09/02/2016 ZURI HENNESSY ENVIRONMENT COORDINATOR Ot R05 COUGH 09/12/2016 ZURI HENNESSY APRN Ot R05 COUGH 10/17/2016 ZURI HENNESSY ENVIRONMENT COORDINATOR Ot R05 COUGH 10/20/2016 ZURI HENNESSY APRN Ot R05 COUGH 02/25/2017 DEQUAN JAMISON Ot E78.00 PURE HYPERCHOLESTEROLEMIA, UNSPECIFIED 02/25/2017 DEQUAN JAMISON Ot I10 ESSENTIAL (PRIMARY) HYPERTENSION 02/25/2017 DEQUAN JAMISON Ot I25.10 ATHSCL HEART DISEASE OF [place] CORONARY 02/25/2017 DEQUAN JAMISON Ot I48.91 UNSPECIFIED ATRIAL FIBRILLATION 02/25/2017 DEQUAN JAMISON Ot I48.92 UNSPECIFIED ATRIAL FLUTTER 02/25/2017 DEQUAN JAMISON Ot K40.90 UNIL INGUINAL HERNIA, W/O OBST OR GANGR, 02/25/2017 DEQUAN JAMISON Ot K80.20 CALCULUS OF GALLBLADDER W/O CHOLECYSTITI 02/25/2017 DEQUAN JAMISON Ot Z79.01 GUEST SERVICE TEAM LEADER (CURRENT) USE OF ANTICOAGULANT 02/25/2017 DEQUAN JAMISON Ot Z79.82 GUEST SERVICE TEAM LEADER (CURRENT) USE OF ASPIRIN 02/25/2017 DEQUAN JAMISON Ot 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 ANGIOPLASTY IMPLANT 02/28/2017 DEQUAN JAMISON Ot E78.00 PURE HYPERCHOLESTEROLEMIA, UNSPECIFIED 02/28/2017 DEQUAN JAMISON Ot I10 ESSENTIAL (PRIMARY) HYPERTENSION 02/28/2017 DEQUAN JAMISON Ot I25.10 ATHSCL HEART DISEASE OF [place] CORONARY 02/28/2017 DEQUAN JAMISON Ot I48.91 UNSPECIFIED ATRIAL FIBRILLATION 02/28/2017 DEQUAN JAMISON Ot I48.92 UNSPECIFIED ATRIAL FLUTTER 02/28/2017 DEQUAN JAMISON Ot K40.90 UNIL INGUINAL HERNIA, W/O OBST OR GANGR, 02/28/2017 DEQUAN JAMISON Ot K80.20 CALCULUS OF GALLBLADDER W/O CHOLECYSTITI 02/28/2017 DEQUAN JAMISON Ot Z79.01 GUEST SERVICE TEAM LEADER (CURRENT) USE OF ANTICOAGULANT 02/28/2017 DEQUAN AJMISON Ot Z79.82 GUEST SERVICE TEAM LEADER (CURRENT) USE OF ASPIRIN 02/28/2017 DEQUAN JAMISON [...] DO Ot I25.10 ATHSCL HEART DISEASE OF [place] CORONARY 03/09/2017 ORVILLE SULLIVAN DO Ot I48.91 UNSPECIFIED ATRIAL FIBRILLATION 03/09/2017 ORVILLE SULLIVAN DO Ot J44.9 CHRONIC OBSTRUCTIVE PULMONARY DISEASE, U 03/09/2017 ORVILLE SULLIVAN DO Ot K40.91 UNILATERAL INGUINAL HERNIA, W/O OBST OR 03/09/2017 ORVILLE SULLIVAN DO Ot Z79.899 OTHER CUSTODIAL (CURRENT) DRUG THERAPY 03/09/2017 ORVILLE SULLIVAN DO Ot Z87.891 PERSONAL HISTORY OF NICOTINE DEPENDENCE 03/09/2017 ORVILLE SULLIVAN DO Ot 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 ANGIOPLASTY IMPLANT 03/13/2017 ORVILLE SULLIVAN DO Ot E78.5 HYPERLIPIDEMIA, UNSPECIFIED 03/13/2017 ORVILLE SULLIVAN DO Ot I10 ESSENTIAL (PRIMARY) HYPERTENSION 03/13/2017 ORVILLE SULLIVAN DO Ot I25.10 ATHSCL HEART DISEASE OF [place] CORONARY 03/13/2017 ORVILLE SULLIVAN DO Ot I48.91 UNSPECIFIED ATRIAL FIBRILLATION 03/13/2017 ORVILLE SULLIVAN DO Ot J44.9 CHRONIC OBSTRUCTIVE PULMONARY DISEASE, U 03/13/2017 ORVILLE SULLIVAN DO Ot K40.91 UNILATERAL INGUINAL HERNIA, W/O OBST OR 03/13/2017 ORVILLE SULLIVAN DO Ot Z79.899 OTHER GUEST SERVICE TEAM LEADER (CURRENT) DRUG THERAPY 03/13/2017 ORVILLE SULLIVAN DO Ot Z87.891 PERSONAL HISTORY OF NICOTINE DEPENDENCE 03/13/2017 ORVILLE SULLIVAN DO Ot 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 ANGIOPLASTY IMPLANT 05/21/2018 RBOOKE EUCEDA, DEANNA Shine Ot 272.4 HYPERLIPIDEMIA NEC/NOS 05/21/2018 DEANNA COX MD Ot 401.1 BENIGN HYPERTENSION 05/21/2018 DEANNA COX MD Ot 414.01 CORONARY ATHEROSCLEROSIS OF [place] CORON 05/21/2018 DEANNA COX MD Ot 427.31 ATRIAL FIBRILLATION 05/21/2018 DEANNA COX MD Ot 427.32 ATRIAL FLUTTER 05/21/2018 DEANNA COX MD Ot V58.61 ANTICOAGULANTS,LT,CURRENT USE 05/21/2018 ZURI HENNESSY ENVIRONMENT COORDINATOR Ot R05 COUGH 05/21/2018 ZURI HENNESSY ENVIRONMENT COORDINATOR Ot R05 COUGH 05/24/2018 ORVILLE SULLIVAN DO Ot 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 05/24/2018 ORVILLE SULLIVAN DO Ot E78.5 HYPERLIPIDEMIA, UNSPECIFIED 05/24/2018 ORVILLE SULLIVAN DO Ot I10 ESSENTIAL (PRIMARY) HYPERTENSION 05/24/2018 ORVILLE SULLIVAN DO Ot I25.10 ATHSCL HEART DISEASE OF [place] CORONARY 05/24/2018 ORVILLE SULLIVAN DO Ot J44.9 CHRONIC OBSTRUCTIVE PULMONARY DISEASE, U 05/24/2018 ORVILLE SULLIVAN DO Ot K40.30 UNIL INGUINAL HERNIA, W OBST, W/O GANGR, 05/24/2018 ORVILLE SULLIVAN DO Ot Z79.82 CUSTODIAL (CURRENT) USE OF ASPIRIN 05/24/2018 ORVILLE SULLIVAN DO Ot Z79.899 OTHER CUSTODIAL (CURRENT) DRUG THERAPY 05/24/2018 ORVILLE SULLIVAN DO Ot Z87.891 PERSONAL HISTORY OF NICOTINE DEPENDENCE 05/24/2018 ORVILLE SULLIVAN DO Ot 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 ANGIOPLASTY IMPLANT 05/27/2018 ETELVINA ALFORD MD Ot E78.00 PURE HYPERCHOLESTEROLEMIA, UNSPECIFIED 05/27/2018 ETELVINA ALFORD MD Ot I10 ESSENTIAL (PRIMARY) HYPERTENSION 05/27/2018 ETELVINA ALFORD MD Ot I25.10 ATHSCL HEART DISEASE OF [place] CORONARY 05/27/2018 ETELVINA ALFORD MD Ot I48.91 UNSPECIFIED ATRIAL FIBRILLATION 05/27/2018 ETELVINA ALFORD MD Ot K56.7 ILEUS, UNSPECIFIED 05/27/2018 ETELVINA ALFORD MD Ot K59.00 CONSTIPATION, UNSPECIFIED 05/27/2018 ETELVINA ALFORD MD Ot R10.13 EPIGASTRIC PAIN 05/27/2018 ETELVINA ALFORD MD Ot Z79.51 CUSTODIAL (CURRENT) USE OF INHALED STERO 05/27/2018 ETELVINA ALFORD MD Ot Z79.82 CUSTODIAL (CURRENT) USE OF ASPIRIN 05/27/2018 ETELVINA ALFORD MD Ot Z87.442 PERSONAL HISTORY OF URINARY CALCULI 05/27/2018 ETELVINA ALFORD MD Ot Z87.891 PERSONAL HISTORY OF NICOTINE DEPENDENCE 05/27/2018 ETELVINA ALFORD MD Ot Z88.8 ALLERGY STATUS TO [facility] DRUG/MEDS/BIOL SUB 05/27/2018 ETELVINA ALFORD MD Ot 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 ANGIOPLASTY IMPLANT 05/27/2018 ETELVINA ALFORD MD Ot Z98.890 OTHER SPECIFIED POSTPROCEDURAL STATES 05/28/2018 ORVILLE SULLIVAN DO Ot 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 05/28/2018 ORVILLE SULLIVAN DO Ot E78.5 HYPERLIPIDEMIA, UNSPECIFIED 05/28/2018 ORVILLE SULLIVAN DO Ot I10 ESSENTIAL (PRIMARY) HYPERTENSION 05/28/2018 ORVILLE SULLIVAN DO Ot I25.10 ATHSCL HEART DISEASE OF [place] CORONARY 05/28/2018 ORVILLE SULLIVAN DO Ot J44.9 CHRONIC OBSTRUCTIVE PULMONARY DISEASE, U 05/28/2018 ORVILLE SULLIVAN DO Ot K40.30 UNIL INGUINAL HERNIA, W OBST, W/O GANGR, 05/28/2018 ORVILLE SULLIVAN DO Ot Z79.82 CUSTODIAL (CURRENT) USE OF ASPIRIN 05/28/2018 ORVILLE SULLIVAN DO Ot Z79.899 OTHER GUEST SERVICE TEAM LEADER (CURRENT) DRUG THERAPY 05/28/2018 ORVILLE SULLIVAN DO Ot Z87.891 PERSONAL HISTORY OF NICOTINE DEPENDENCE 05/28/2018 ORVILLE SULLIVAN DO Ot 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 ANGIOPLASTY IMPLANT 05/29/2018 ETELVINA ALFORD MD Ot E78.00 PURE HYPERCHOLESTEROLEMIA, UNSPECIFIED 05/29/2018 ETELVINA ALFORD MD Ot I10 ESSENTIAL (PRIMARY) HYPERTENSION 05/29/2018 ETELVINA ALFORD MD Ot I25.10 ATHSCL HEART DISEASE OF [place] CORONARY 05/29/2018 ETELVINA ALFORD MD, Ot I48.91 UNSPECIFIED ATRIAL FIBRILLATION 05/29/2018 ETELVINA ALFORD MD Ot K56.7 ILEUS, UNSPECIFIED 05/29/2018 ETELVINA ALFORD MD Ot K59.00 CONSTIPATION, UNSPECIFIED 05/29/2018 ETELVINA ALFORD MD Ot R10.13 EPIGASTRIC PAIN 05/29/2018 ETELVINA ALFORD MD Ot Z79.51 CUSTODIAL (CURRENT) USE OF INHALED STERO 05/29/2018 ETELVINA ALFORD MD Ot Z79.82 CUSTODIAL (CURRENT) USE OF ASPIRIN 05/29/2018 ETELVINA ALFORD MD Ot Z87.442 PERSONAL HISTORY OF URINARY CALCULI 05/29/2018 ETELVINA ALFORD MD Ot Z87.891 PERSONAL HISTORY OF NICOTINE DEPENDENCE 05/29/2018 ETELVINA ALFORD MD Ot Z88.8 ALLERGY STATUS TO OT DRUG/MEDS/BIOL SUB 05/29/2018 ETELVINA ALFORD MD Ot 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 ANGIOPLASTY IMPLANT 05/29/2018 ETELVINA ALFORD MD Ot Z98.890 OTHER SPECIFIED POSTPROCEDURAL STATES 06/01/2018 ORVILLE SULLIVAN DO Ot 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 06/01/2018 ORVILLE SULLIVAN DO Ot E78.5 HYPERLIPIDEMIA, UNSPECIFIED 06/01/2018 ORVILLE SULLIVAN DO Ot I10 ESSENTIAL (PRIMARY) HYPERTENSION 06/01/2018 ORVILLE SULLIVAN DO Ot I25.10 ATHSCL HEART DISEASE OF [place] CORONARY 06/01/2018 ORVILLE SULLIVAN DO Ot J44.9 CHRONIC OBSTRUCTIVE PULMONARY DISEASE, U 06/01/2018 ORVILLE SULLIVAN DO Ot K40.30 UNIL INGUINAL HERNIA, W OBST, W/O GANGR, 06/01/2018 ORVILLE SULLIVAN DO Ot Z79.82 GUEST SERVICE TEAM LEADER (CURRENT) USE OF ASPIRIN 06/01/2018 ORVILLE SULLIVAN DO Ot Z79.899 OTHER GUEST SERVICE TEAM LEADER (CURRENT) DRUG THERAPY 06/01/2018 ORVILLE SULLIVAN DO [...] resistant Staphylococcus aureus (MRSA) screening culture NEG [facility] Complete blood count (CBC) with automated white blood cell (WBC) differential - 07/27/18 09:55 Blood leukocytes automated count (number/volume) 9.4 10*3/uL 4.3-11.0 Blood erythrocytes automated count (number/volume) 4.66 10*6/uL 4.35-5.85 Venous blood hemoglobin measurement (mass/volume) 15.5 g/dL 13.3-17.7 Blood hematocrit (volume fraction) 45 % 40-54 Automated erythrocyte mean corpuscular volume 96 [foz_us] 80-99 Automated erythrocyte mean corpuscular hemoglobin (mass per erythrocyte) 33 pg 25-34 Automated erythrocyte mean corpuscular hemoglobin concentration measurement ( mass/volume) 35 g/dL 32-36 Automated erythrocyte distribution width ratio 14.2 % 10.0-14.5 Automated blood platelet count (count/volume) 236 10*3/uL 130-400 Automated blood platelet mean volume measurement 9.4 [foz_us] 7.4-10.4 Automated blood neutrophils/100 leukocytes 60 % 42-75 Automated blood lymphocytes/100 leukocytes 27 % 12-44 Blood monocytes/100 leukocytes 10 % 0-12 Automated blood eosinophils/100 leukocytes 4 % 0-10 Automated blood basophils/100 leukocytes 0 % 0-10 Blood neutrophils automated count (number/volume) 5.6 10*3 1.8-7.8 Blood lymphocytes automated count (number/volume) 2.5 10*3 1.0-4.0 Blood monocytes automated count (number/volume) 0.9 10*3 0.0-1.0 Automated eosinophil count 0.3 10*3/uL 0.0-0.3 Automated blood basophil count (count/volume) 0.0 10*3/uL 0.0-0.1 PT panel in platelet poor plasma by coagulation assay - 07/27/18 09:55 Prothrombin time (PT) in platelet poor plasma by coagulation assay 12.7 s 12.2-14.7 INR in platelet poor plasma or blood by coagulation assay 1.0 0.8-1.4 Activated partial thromboplastin time (aPTT) in platelet poor plasma bycoagulation assay - 07/27/18 09:55 Activated partial thromboplastin time (aPTT) in platelet poor plasma bycoagulation assay 25 s 24-35 Comprehensive metabolic panel - 07/27/18 09:55 Serum or plasma sodium measurement (moles/volume) 137 mmol/L 135-145 Serum or plasma potassium measurement (moles/volume) 5.0 mmol/L 3.6-5.0 Serum or plasma chloride measurement (moles/volume) 104 mmol/L 98-107 Carbon dioxide 25 mmol/L 21-32 Serum or plasma anion gap determination (moles/volume) 8 mmol/L 5-14 Serum or plasma urea nitrogen measurement (mass/volume) 24 mg/dL 7-18 Serum or plasma creatinine measurement (mass/volume) 0.98 mg/dL 0.60-1.30 Serum or plasma urea nitrogen/creatinine mass ratio 24 NRG Serum or plasma creatinine measurement with calculation of estimated glomerular filtration rate > NRG Serum or plasma glucose measurement (mass/volume) 101 mg/dL 70-105 Serum or plasma calcium measurement (mass/volume) 9.1 mg/dL 8.5-10.1 Serum or plasma total bilirubin measurement (mass/volume) 1.8 mg/dL 0.1-1.0 Serum or plasma alkaline phosphatase measurement (enzymatic activity/volume) 113 U/L 40-136 Serum or plasma aspartate aminotransferase measurement (enzymatic activity/ volume) 141 U/L 5-34 Serum or plasma alanine aminotransferase measurement (enzymatic activity/volume ) 60 U/L 0-55 Serum or plasma protein measurement (mass/volume) 6.9 g/dL 6.4-8.2 Serum or plasma albumin measurement (mass/volume) 3.9 g/dL 3.2-4.5 CALCIUM CORRECTED 9.2 mg/dL 8.5-10.1 Magnesium - 07/27/18 09:55 Magnesium 2.4 mg/dL 1.8-2.4 Serum or plasma troponin i.cardiac measurement (mass/volume) - 07/27/18 09:55 Serum or plasma troponin i.cardiac measurement (mass/volume) < ng/ mL <0.30 Myoglobin, serum - 07/27/18 09:55 Myoglobin, serum 31.4 ng/mL 10.0-92.0 Lipase - 07/27/18 09:55 Lipase 22 U/L 8-78 Serum or plasma troponin i.cardiac measurement (mass/volume) - 07/27/18 10:59 Serum or plasma troponin i.cardiac measurement (mass/volume) < ng/ mL <0.30 Serum or plasma troponin i.cardiac measurement (mass/volume) - 07/27/18 14:45 Serum or plasma troponin i.cardiac measurement (mass/volume) < ng/ mL <0.30 Complete blood count (CBC) with automated white blood cell (WBC) differential - 07/28/18 05:34 Blood leukocytes automated count (number/volume) 24.9 10*3/uL 4.3-11.0 Blood erythrocytes automated count (number/volume) 4.28 10*6/uL 4.35-5.85 Venous blood hemoglobin measurement (mass/volume) 14.3 g/dL 13.3-17.7 Blood hematocrit (volume fraction) 42 % 40-54 Automated erythrocyte mean corpuscular volume 98 [foz_us] 80-99 Automated erythrocyte mean corpuscular hemoglobin (mass per erythrocyte) 33 pg 25-34 Automated erythrocyte mean corpuscular hemoglobin concentration measurement ( mass/volume) 34 g/dL 32-36 Automated erythrocyte distribution width ratio 14.8 % 10.0-14.5 Automated blood platelet count (count/volume) 179 10*3/uL 130-400 Automated blood platelet mean volume measurement 9.7 [foz_us] 7.4-10.4 Automated blood neutrophils/100 leukocytes 90 % 42-75 Automated blood lymphocytes/100 leukocytes 4 % 12-44 Blood monocytes/100 leukocytes 6 % 0-12 Automated blood eosinophils/100 leukocytes 0 % 0-10 Automated blood basophils/100 leukocytes 0 % 0-10 Blood neutrophils automated count (number/volume) 22.4 10*3 1.8-7.8 Blood lymphocytes automated count (number/volume) 1.0 10*3 1.0-4.0 Blood monocytes automated count (number/volume) 1.5 10*3 0.0-1.0 Automated eosinophil count 0.0 10*3/uL 0.0-0.3 Automated blood basophil count (count/volume) 0.0 10*3/uL 0.0-0.1 Comprehensive metabolic panel - 07/28/18 05:34 Serum or plasma sodium measurement (moles/volume) 136 mmol/L 135-145 Serum or plasma potassium measurement (moles/volume) 5.4 mmol/L 3.6-5.0 Serum or plasma chloride measurement (moles/volume) 107 mmol/L 98-107 Carbon dioxide 19 mmol/L 21-32 Serum or plasma anion gap determination (moles/volume) 10 mmol/L 5-14 Serum or plasma urea nitrogen measurement (mass/volume) 22 mg/dL 7-18 Serum or plasma creatinine measurement (mass/volume) 1.02 mg/dL 0.60-1.30 Serum or plasma urea nitrogen/creatinine mass ratio 22 NRG Serum or plasma creatinine measurement with calculation of estimated glomerular filtration rate > NRG Serum or plasma glucose measurement (mass/volume) 106 mg/dL 70-105 Serum or plasma calcium measurement (mass/volume) 8.6 mg/dL 8.5-10.1 Serum or plasma total bilirubin measurement (mass/volume) 7.2 mg/dL 0.1-1.0 Serum or plasma alkaline phosphatase measurement (enzymatic activity/volume) 171 U/L 40-136 Serum or plasma aspartate aminotransferase measurement (enzymatic activity/ volume) 479 U/L 5-34 Serum or plasma alanine aminotransferase measurement (enzymatic activity/volume ) 474 U/L 0-55 Serum or plasma protein measurement (mass/volume) 6.0 g/dL 6.4-8.2 Serum or plasma albumin measurement (mass/volume) 3.5 g/dL 3.2-4.5 CALCIUM CORRECTED 9.0 mg/dL 8.5-10.1 Blood manual differential performed detection - 07/28/18 05:34 Blood monocytes/100 leukocytes 4 % NRG Manual blood segmented neutrophils/100 leukocytes 90 % NRG Manual blood lymphocytes/100 leukocytes 6 % NRG Encounters ACCT No. Visit Date/Time Discharge Status Pt. Type Provider Facility Loc./Unit Complaint [id number] 07/18/2018 07:43:00 07/18/2018 23:59:59 CLS Outpatient BRYON MARIN MD [facility] RAD RUQ PAIN [id number] 05/27/2018 02:30:00 05/27/2018 03:40:00 DIS Emergency ETELVINA ALFORD MD [facility] ER POST HERNIA SURGERY/ABD PAIN [id number] 05/24/2018 07:52:00 05/24/2018 13:30:00 DIS Outpatient ORVILLE SULLIVAN DO [facility] SDC LEFT INGUINAL HERNIA [id number] 05/21/2018 10:33:00 05/21/2018 11:13:00 DIS Outpatient SULLIVAN ORVILLE Shanda [facility] PREOP LEFT INGUINAL HERNIA REPAIR [id number] 03/09/2017 07:30:00 03/09/2017 14:07:00 DIS Outpatient SULLIVAN ORVILLE LUNA D [facility] SDC RIGHT INGUINAL HERNIA [id number] 03/06/2017 12:40:00 03/06/2017 13:31:00 DIS Outpatient SULLIVAN ORVILLE LUNA [facility] PREOP RIGHT INGUINAL HERNIA REPAIR [id number] 02/25/2017 12:23:00 02/25/2017 17:15:00 DIS Emergency DEQUAN JAMISON [facility] ER HERNIA [id number] 08/24/2016 09:59:00 08/24/2016 23:59:59 CLS Outpatient ZURI HENNESSY ENVIRONMENT COORDINATOR [facility] RT CHRONIC COUGH [id number] 08/11/2016 09:46:00 08/11/2016 23:59:59 CLS Outpatient ZURI HENNESSY ENVIRONMENT COORDINATOR [facility] RAD CHRONIC COUGH [id number] 07/15/2015 23:20:00 07/16/2015 01:39:00 DIS Emergency SISI ALCALA DO [facility] ER CHEST CONGESTION [id number] 11/13/2013 12:49:00 11/13/2013 23:59:59 CLS Outpatient DEANNA COX MD [facility] CARD ATRIAL FIBRILLATION [id number] 08/23/2013 16:26:00 08/23/2013 18:22:00 DIS Emergency FRANNY STAUFFER MD [facility] ER FALL,RIB PAIN [id number] 07/27/2018 15:13:00 Document Registration [id number] 07/27/2018 10:04:00 Document Registration [id number] 06/13/2013 13:19:00 06/13/2013 23:59:59 CLS Outpatient GOGO KELLY DO
== END 2018-07-28 11:00 | disposition short-term general hospital (02) | DRG 441 ==
LOC: 4TH 13:38 → UNDOADMOB 13:38 → 4TH 13:55 → INTOOBSV 07-28 09:12 → OBSVTOIN 07-28 09:12 → UNDODISIN 07-28 11:00
PROVIDERS: ADMIT Family Medicine; ATTEND Family Medicine
DX: B17.9 Acute viral hepatitis, unspecified (principal); K83.1 Obstruction of bile duct; R74.8 Abnormal levels of other serum enzymes; J44.9 Chronic obstructive pulmonary disease, unspecified; I48.91 Unspecified atrial fibrillation; I25.10 Atherosclerotic heart disease of native coronary artery without angina pectoris; E78.00 Pure hypercholesterolemia, unspecified; I10 Essential (primary) hypertension; N40.0 Benign prostatic hyperplasia without lower urinary tract symptoms; Z95.5 Presence of coronary angioplasty implant and graft; Z87.891 Personal history of nicotine dependence
CPT/HCPCS: 36415; 78227; 80053; 84484; 85007; 85027; G0378

== ENCOUNTER 2018-08-23 05:41 | Outpatient (CLI) | payer MEDICARE ==
[~2018-08-23] VITALS: Ht 177.8 cm; Wt 68.1 kg
[~2018-08-23 05:41] MED LIST changes: +OMEP40CA36 PO
== END 2018-08-23 13:02 | disposition home or self-care (01) ==
LOC: PREOP 05:41
PROVIDERS: ATTEND Surgery
DX: Z01.818 Encounter for other preprocedural examination (principal)

== ENCOUNTER 2018-08-27 09:41 | Day surgery (SDC) | payer MEDICARE ==
[~2018-08-27] VITALS: Ht 177.8 cm; Wt 68.1 kg
[2018-08-27 09:45] VITALS: BP 134/75
--- OUTSIDE RECORDS SUMMARY | 2018-08-27 09:46 | XMS REPORT | Continuity of Care Document ---
Author Author [facility] Organization [facility] Address Unknown Phone Unavailable Allergies Active Description Code Type Severity Reaction Onset Reported/Identified Relationship to Patient Clinical Status Yes ticlopidine [id number] Drug Allergy Unknown N/A 03/06/2017 Yes ticlopidine [id number] Drug Allergy Mild HIVES 08/23/2018 Medications There is no data. Problems Date [...] APRN Ot R05 COUGH 09/02/2016 ZURI HENNESSY DIALS INSPECTOR Ot R05 COUGH 09/12/2016 ZURI HENNESSY APRN Ot R05 COUGH 10/17/2016 ZURI HENNESSY DIALS INSPECTOR Ot R05 COUGH 10/20/2016 ZURI HENNESSY APRN Ot R05 COUGH 02/25/2017 DEQUAN JAMISON Ot E78.00 PURE HYPERCHOLESTEROLEMIA, UNSPECIFIED 02/25/2017 DEQUAN JAMISON Ot I10 ESSENTIAL (PRIMARY) HYPERTENSION 02/25/2017 DEQUAN JAMISON Ot I25.10 ATHSCL HEART DISEASE OF [place] CORONARY 02/25/2017 DEQUAN JAMISON Ot I48.91 UNSPECIFIED ATRIAL FIBRILLATION 02/25/2017 DEQUAN JAMISON Ot I48.92 UNSPECIFIED ATRIAL FLUTTER 02/25/2017 DEQUAN JAMISON Ot K40.90 UNIL INGUINAL HERNIA, W/O OBST OR GANGR, 02/25/2017 DEQUAN JAMISON Ot K80.20 CALCULUS OF GALLBLADDER W/O CHOLECYSTITI 02/25/2017 DEQUAN JAMISON Ot Z79.01 FIBERGLASS DOWEL DRAWING OPERATOR (CURRENT) USE OF ANTICOAGULANT 02/25/2017 DEQUAN JAMISON Ot Z79.82 FIBERGLASS DOWEL DRAWING OPERATOR (CURRENT) USE OF ASPIRIN 02/25/2017 DEQUAN JAMISON Ot 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 ANGIOPLASTY IMPLANT 02/28/2017 DEQUAN JAMISON Ot E78.00 PURE HYPERCHOLESTEROLEMIA, UNSPECIFIED 02/28/2017 DEQUAN JAMISON Ot I10 ESSENTIAL (PRIMARY) HYPERTENSION 02/28/2017 DEQUAN JAMISON Ot I25.10 ATHSCL HEART DISEASE OF [place] CORONARY 02/28/2017 DEQUAN JAMISON Ot I48.91 UNSPECIFIED ATRIAL FIBRILLATION 02/28/2017 DEQUAN JAMISON Ot I48.92 UNSPECIFIED ATRIAL FLUTTER 02/28/2017 DEQUAN JAMISON Ot K40.90 UNIL INGUINAL HERNIA, W/O OBST OR GANGR, 02/28/2017 DEQUAN JAMISON Ot K80.20 CALCULUS OF GALLBLADDER W/O CHOLECYSTITI 02/28/2017 DEQUAN JAMISON Ot Z79.01 FIBERGLASS DOWEL DRAWING OPERATOR (CURRENT) USE OF ANTICOAGULANT 02/28/2017 DEQUAN JAMISON Ot Z79.82 FIBERGLASS DOWEL DRAWING OPERATOR (CURRENT) USE OF ASPIRIN 02/28/2017 DEQUAN JAMISON [...] DO Ot I25.10 ATHSCL HEART DISEASE OF [place] CORONARY 03/09/2017 ORVILLE SULLIVAN DO Ot I48.91 UNSPECIFIED ATRIAL FIBRILLATION 03/09/2017 ORVILLE SULLIVAN DO Ot J44.9 CHRONIC OBSTRUCTIVE PULMONARY DISEASE, U 03/09/2017 ORVILLE SULLIVAN DO Ot K40.91 UNILATERAL INGUINAL HERNIA, W/O OBST OR 03/09/2017 ORVILLE SULLIVAN DO Ot Z79.899 OTHER FIBERGLASS DOWEL DRAWING OPERATOR (CURRENT) DRUG THERAPY 03/09/2017 ORVILLE SULLIVAN DO Ot Z87.891 PERSONAL HISTORY OF NICOTINE DEPENDENCE 03/09/2017 ORVILLE SULLIVAN DO Ot 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 ANGIOPLASTY IMPLANT 03/13/2017 ORVILLE SULLIVAN DO Ot E78.5 HYPERLIPIDEMIA, UNSPECIFIED 03/13/2017 ORVILLE SULLIVAN DO Ot I10 ESSENTIAL (PRIMARY) HYPERTENSION 03/13/2017 ORVILLE SULLIVAN DO Ot I25.10 ATHSCL HEART DISEASE OF [place] CORONARY 03/13/2017 ORVILLE SULLIVAN DO Ot I48.91 UNSPECIFIED ATRIAL FIBRILLATION 03/13/2017 ORVILLE SULLIVAN DO Ot J44.9 CHRONIC OBSTRUCTIVE PULMONARY DISEASE, U 03/13/2017 ORVILLE SULLIVAN DO Ot K40.91 UNILATERAL INGUINAL HERNIA, W/O OBST OR 03/13/2017 ORVILLE SULLIVAN DO Ot Z79.899 OTHER FIBERGLASS DOWEL DRAWING OPERATOR (CURRENT) DRUG THERAPY 03/13/2017 ORVILLE SULLIVAN DO Ot Z87.891 PERSONAL HISTORY OF NICOTINE DEPENDENCE 03/13/2017 ORVILLE SULLIVAN DO Ot 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 ANGIOPLASTY IMPLANT 05/21/2018 BROOKE EUCEDA, DEANNA Shine Ot 272.4 HYPERLIPIDEMIA NEC/NOS 05/21/2018 DEANNA COX MD Ot 401.1 BENIGN HYPERTENSION 05/21/2018 DEANNA COX MD Ot 414.01 CORONARY ATHEROSCLEROSIS OF [place] CORON 05/21/2018 DEANNA COX MD Ot 427.31 ATRIAL FIBRILLATION 05/21/2018 DEANNA COX MD Ot 427.32 ATRIAL FLUTTER 05/21/2018 DEANNA COX MD Ot V58.61 ANTICOAGULANTS,LT,CURRENT USE 05/21/2018 ZURI HENNESSY DIALS INSPECTOR Ot R05 COUGH 05/21/2018 ZURI HENNESSY DIALS INSPECTOR Ot R05 COUGH 05/24/2018 ORVILLE SULLIVAN DO Ot 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 05/24/2018 ORVILLE SULLIVAN DO Ot E78.5 HYPERLIPIDEMIA, UNSPECIFIED 05/24/2018 ORVILLE SULLIVAN DO Ot I10 ESSENTIAL (PRIMARY) HYPERTENSION 05/24/2018 ORVILLE SULLIVAN DO Ot I25.10 ATHSCL HEART DISEASE OF [place] CORONARY 05/24/2018 ORVILLE SULLIVAN DO Ot J44.9 CHRONIC OBSTRUCTIVE PULMONARY DISEASE, U 05/24/2018 ORVILLE SULLIVAN DO Ot K40.30 UNIL INGUINAL HERNIA, W OBST, W/O GANGR, 05/24/2018 ORVILLE SULLIVAN DO Ot Z79.82 CARE HOME (CURRENT) USE OF ASPIRIN 05/24/2018 ORVILLE SULLIVAN DO Ot Z79.899 OTHER CARE HOME (CURRENT) DRUG THERAPY 05/24/2018 ORVILLE SULLIVAN DO Ot Z87.891 PERSONAL HISTORY OF NICOTINE DEPENDENCE 05/24/2018 ORVILLE SULLIVAN DO Ot 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 ANGIOPLASTY IMPLANT 05/27/2018 ETELVINA ALFORD MD Ot E78.00 PURE HYPERCHOLESTEROLEMIA, UNSPECIFIED 05/27/2018 ETELVINA ALFORD MD Ot I10 ESSENTIAL (PRIMARY) HYPERTENSION 05/27/2018 ETELVINA ALFORD MD Ot I25.10 ATHSCL HEART DISEASE OF [place] CORONARY 05/27/2018 ETELVINA ALFORD MD Ot I48.91 UNSPECIFIED ATRIAL FIBRILLATION 05/27/2018 ETELVINA ALFORD MD Ot K56.7 ILEUS, UNSPECIFIED 05/27/2018 ETELVINA ALFORD MD Ot K59.00 CONSTIPATION, UNSPECIFIED 05/27/2018 ETELVINA ALFORD MD Ot R10.13 EPIGASTRIC PAIN 05/27/2018 ETELVINA ALFORD MD Ot Z79.51 CARE HOME (CURRENT) USE OF INHALED STERO 05/27/2018 ETELVINA ALFORD MD Ot Z79.82 FIBERGLASS DOWEL DRAWING OPERATOR (CURRENT) USE OF ASPIRIN 05/27/2018 ETELVINA ALFORD MD Ot Z87.442 PERSONAL HISTORY OF URINARY CALCULI 05/27/2018 ETELVINA ALFORD MD Ot Z87.891 PERSONAL HISTORY OF NICOTINE DEPENDENCE 05/27/2018 ETELVINA ALFORD MD Ot Z88.8 ALLERGY STATUS TO [facility] DRUG/MEDS/BIOL SUB 05/27/2018 ETELVINA ALFORD MD Ot 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 ANGIOPLASTY IMPLANT 05/27/2018 ETELVINA ALFORD MD Ot Z98.890 OTHER SPECIFIED POSTPROCEDURAL STATES 05/28/2018 ORVILLE SULLIVAN DO Ot 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 05/28/2018 ORVILLE SULLIVAN DO Ot E78.5 HYPERLIPIDEMIA, UNSPECIFIED 05/28/2018 ORVILLE SULLIVAN DO Ot I10 ESSENTIAL (PRIMARY) HYPERTENSION 05/28/2018 ORVILLE SULLIVAN DO Ot I25.10 ATHSCL HEART DISEASE OF [place] CORONARY 05/28/2018 ORVILLE SULLIVAN DO Ot J44.9 CHRONIC OBSTRUCTIVE PULMONARY DISEASE, U 05/28/2018 ORVILLE SULLIVAN DO Ot K40.30 UNIL INGUINAL HERNIA, W OBST, W/O GANGR, 05/28/2018 ORVILLE SULLIVAN DO Ot Z79.82 FIBERGLASS DOWEL DRAWING OPERATOR (CURRENT) USE OF ASPIRIN 05/28/2018 ORVILLE SULLIVAN DO Ot Z79.899 OTHER FIBERGLASS DOWEL DRAWING OPERATOR (CURRENT) DRUG THERAPY 05/28/2018 ORVILLE SULLIVAN DO Ot Z87.891 PERSONAL HISTORY OF NICOTINE DEPENDENCE 05/28/2018 ORVILLE SULLIVAN DO Ot 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 ANGIOPLASTY IMPLANT 05/29/2018 ETELVINA ALFORD MD Ot E78.00 PURE HYPERCHOLESTEROLEMIA, UNSPECIFIED 05/29/2018 ETELVINA ALFORD MD Ot I10 ESSENTIAL (PRIMARY) HYPERTENSION 05/29/2018 ETELVINA ALFORD MD Ot I25.10 ATHSCL HEART DISEASE OF [place] CORONARY 05/29/2018 ETELVINA ALFORD MD, Ot I48.91 UNSPECIFIED ATRIAL FIBRILLATION 05/29/2018 ETELVINA ALFORD MD Ot K56.7 ILEUS, UNSPECIFIED 05/29/2018 ETELVINA ALFORD MD Ot K59.00 CONSTIPATION, UNSPECIFIED 05/29/2018 ETELVINA ALFORD MD Ot R10.13 EPIGASTRIC PAIN 05/29/2018 ETELVINA ALFORD MD Ot Z79.51 FIBERGLASS DOWEL DRAWING OPERATOR (CURRENT) USE OF INHALED STERO 05/29/2018 ETELVINA ALFORD MD Ot Z79.82 CARE HOME (CURRENT) USE OF ASPIRIN 05/29/2018 ETELVINA ALFORD MD Ot Z87.442 PERSONAL HISTORY OF URINARY CALCULI 05/29/2018 ETELVINA ALFORD MD Ot Z87.891 PERSONAL HISTORY OF NICOTINE DEPENDENCE 05/29/2018 ETELVINA ALFORD MD Ot Z88.8 ALLERGY STATUS TO [facility] DRUG/MEDS/BIOL SUB 05/29/2018 ETELVINA ALFORD MD Ot 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 ANGIOPLASTY IMPLANT 05/29/2018 ETELVINA ALFORD MD Ot Z98.890 OTHER SPECIFIED POSTPROCEDURAL STATES 06/01/2018 ORVILLE SULLIVAN DO Ot 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 06/01/2018 ORVILLE SULLIVAN DO Ot E78.5 HYPERLIPIDEMIA, UNSPECIFIED 06/01/2018 ORVILLE SULLIVAN DO Ot I10 ESSENTIAL (PRIMARY) HYPERTENSION 06/01/2018 ORVILLE SULLIVAN DO Ot I25.10 ATHSCL HEART DISEASE OF [place] CORONARY 06/01/2018 ORVILLE SULLIVAN DO Ot J44.9 CHRONIC OBSTRUCTIVE PULMONARY DISEASE, U 06/01/2018 ORVILLE SULLIVAN DO Ot K40.30 UNIL INGUINAL HERNIA, W OBST, W/O GANGR, 06/01/2018 ORVILLE SULLIVAN DO Ot Z79.82 FIBERGLASS DOWEL DRAWING OPERATOR (CURRENT) USE OF ASPIRIN 06/01/2018 ORVILLE SULLIVAN DO Ot Z79.899 OTHER FIBERGLASS DOWEL DRAWING OPERATOR (CURRENT) DRUG THERAPY 06/01/2018 ORVILLE SULLIVAN DO Ot Z87.891 PERSONAL HISTORY OF NICOTINE DEPENDENCE 06/01/2018 ORVILLE SULLIVAN DO Ot 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 ANGIOPLASTY IMPLANT 07/28/2018 TIMO CHAU MD, Ot B17.9 ACUTE VIRAL HEPATITIS, UNSPECIFIED 07/28/2018 TIMO CHAU MD, Ot E78.00 PURE HYPERCHOLESTEROLEMIA, UNSPECIFIED 07/28/2018 TIMO CHAU MD, Ot I10 ESSENTIAL (PRIMARY) HYPERTENSION 07/28/2018 TIMO CHAU MD, Ot I25.10 ATHSCL HEART DISEASE OF [place] CORONARY 07/28/2018 TIMO CHAU MD Ot I48.91 UNSPECIFIED ATRIAL FIBRILLATION 07/28/2018 TIMO CHAU MD, Ot J44.9 CHRONIC OBSTRUCTIVE PULMONARY DISEASE, U 07/28/2018 TIMO CHAU MD, Ot K21.9 GASTRO-ESOPHAGEAL REFLUX DISEASE WITHOUT 07/28/2018 TIMO CHAU MD Ot 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 07/28/2018 TIMO CHAU MD Ot N40.0 BENIGN PROSTATIC HYPERPLASIA WITHOUT LOW 07/28/2018 TIMO CHAU MD Ot R74.8 ABNORMAL LEVELS OF OTHER SERUM ENZYMES 07/28/2018 TIMO CHAU MD Ot Z79.01 FIBERGLASS DOWEL DRAWING OPERATOR (CURRENT) USE OF ANTICOAGULANT 07/28/2018 TIMO CHAU MD Ot Z79.51 FIBERGLASS DOWEL DRAWING OPERATOR (CURRENT) USE OF INHALED STERO 07/28/2018 TIMO CHAU MD Ot Z79.82 FIBERGLASS DOWEL DRAWING OPERATOR (CURRENT) USE OF ASPIRIN 07/28/2018 TIMO CHAU MD Ot Z87.442 PERSONAL HISTORY OF URINARY CALCULI 07/28/2018 TIMO CHAU MD Ot Z87.448 PERSONAL HISTORY OF OTHER DISEASES OF UR 07/28/2018 TIMO CHAU MD Ot Z87.891 PERSONAL HISTORY OF NICOTINE DEPENDENCE 07/28/2018 TIMO CHAU MD Ot Z88.8 ALLERGY STATUS TO OT DRUG/MEDS/BIOL SUB 07/28/2018 TIMO CHAU MD Ot 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 ANGIOPLASTY IMPLANT 07/28/2018 TIMO CHAU MD Ot Z98.890 OTHER SPECIFIED POSTPROCEDURAL STATES 07/31/2018 ETELVINA ALFORD MD Ot E78.00 PURE HYPERCHOLESTEROLEMIA, UNSPECIFIED 07/31/2018 ETELVINA ALFORD MD Ot I10 ESSENTIAL (PRIMARY) HYPERTENSION 07/31/2018 ETELVINA ALFORD MD Ot I25.10 ATHSCL HEART DISEASE OF [place] CORONARY 07/31/2018 ETELVINA ALFORD MD Ot I48.91 UNSPECIFIED ATRIAL FIBRILLATION 07/31/2018 ETELVINA ALFORD MD Ot J44.9 CHRONIC OBSTRUCTIVE PULMONARY DISEASE, U 07/31/2018 ETELVINA ALFORD MD Ot K21.9 GASTRO-ESOPHAGEAL REFLUX DISEASE WITHOUT 07/31/2018 ETELVINA ALFORD MD Ot R07.89 OTHER CHEST PAIN 07/31/2018 ETELVINA ALFORD MD Ot Z79.01 FIBERGLASS DOWEL DRAWING OPERATOR (CURRENT) USE OF ANTICOAGULANT 07/31/2018 ETELVINA ALFORD MD Ot Z79.51 FIBERGLASS DOWEL DRAWING OPERATOR (CURRENT) USE OF INHALED STERO 07/31/2018 ETELVINA ALFORD MD Ot Z79.82 CARE HOME (CURRENT) USE OF ASPIRIN 07/31/2018 ETELVINA ALFORD MD Ot Z87.442 PERSONAL HISTORY OF URINARY CALCULI 07/31/2018 ETELVINA ALFORD MD Ot Z87.448 PERSONAL HISTORY OF OTHER DISEASES OF UR 07/31/2018 ETELVINA ALFORD MD Ot Z88.8 ALLERGY STATUS TO [facility] DRUG/MEDS/BIOL SUB 07/31/2018 ETELVINA ALFORD MD Ot 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 ANGIOPLASTY IMPLANT 07/31/2018 ETELVINA ALFORD MD Ot Z98.890 OTHER SPECIFIED POSTPROCEDURAL STATES 08/02/2018 ETELVINA ALFORD MD Ot E78.00 PURE HYPERCHOLESTEROLEMIA, UNSPECIFIED 08/02/2018 ETELVINA ALFORD MD Ot I10 ESSENTIAL (PRIMARY) HYPERTENSION 08/02/2018 ETELVINA ALFORD MD Ot I25.10 ATHSCL HEART DISEASE OF [place] CORONARY 08/02/2018 ETELVINA ALFORD MD Ot I48.91 UNSPECIFIED ATRIAL FIBRILLATION 08/02/2018 ETELVINA ALFORD MD Ot J44.9 CHRONIC OBSTRUCTIVE PULMONARY DISEASE, U 08/02/2018 ETELVINA ALFORD MD Ot K21.9 GASTRO-ESOPHAGEAL REFLUX DISEASE WITHOUT 08/02/2018 ETELVINA ALFORD MD Ot R07.89 OTHER CHEST PAIN 08/02/2018 ETELVINA ALFORD MD Ot Z79.01 CARE HOME (CURRENT) USE OF ANTICOAGULANT 08/02/2018 ETELVINA ALFORD MD, Ot Z79.51 FIBERGLASS DOWEL DRAWING OPERATOR (CURRENT) USE OF INHALED STERO 08/02/2018 ETELVINA ALFORD MD Ot Z79.82 CARE HOME (CURRENT) USE OF ASPIRIN 08/02/2018 ETELVINA ALFORD MD Ot Z87.442 PERSONAL HISTORY OF URINARY CALCULI 08/02/2018 ETELVINA ALFORD MD Ot Z87.448 PERSONAL HISTORY OF OTHER DISEASES OF UR 08/02/2018 ETELVINA ALFORD MD Ot Z88.8 ALLERGY STATUS TO [facility] DRUG/MEDS/BIOL SUB 08/02/2018 ETELVINA ALFORD MD Ot 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 ANGIOPLASTY IMPLANT 08/02/2018 ETELVINA ALFORD MD Ot Z98.890 OTHER SPECIFIED POSTPROCEDURAL STATES 08/10/2018 TOMAS EUCEDA, BRYON Land Ot R10.11 RIGHT UPPER QUADRANT PAIN 08/24/2018 ORVILLE SULLIVAN DO Ot Z01.818 ENCOUNTER FOR OTHER PREPROCEDURAL EXAMIN Procedures Code Description Performed By Performed On [...] Staphylococcus aureus (MRSA) screening culture NEG NRG Complete blood count (CBC) with automated white [...] Status Pt. Type Provider Facility Loc./Unit Complaint [id number] 08/23/2018 05:41:00 08/23/2018 13:02:00 DIS Outpatient ORVILLE SULLIVAN DO [facility] PREOP CHOLEDOCHOLIATHIASIS [id number] 07/28/2018 09:12:00 07/28/2018 11:00:00 DIS Outpatient TIMO CHAU MD [facility] 4TH RULE OUT CHEST PAIN [id number] 07/27/2018 09:32:00 07/27/2018 12:07:00 DIS Outpatient ETELVINA ALFORD MD [facility] ER CHEST/ABD DISCOMFORT [id number] 07/18/2018 07:43:00 07/18/2018 23:59:59 CLS Outpatient BRYON MARIN MD [facility] RAD RUQ PAIN [id number] 05/27/2018 02:30:00 05/27/2018 03:40:00 DIS Emergency ETELVINA ALFORD MD [facility] ER POST HERNIA SURGERY/ABD PAIN [id number] 05/24/2018 07:52:00 05/24/2018 13:30:00 DIS Outpatient ORVILLE SULLIVAN DO [facility] LEFT INGUINAL HERNIA [id number] 05/21/2018 10:33:00 05/21/2018 11:13:00 DIS Outpatient ORVILLE SULLIVAN DO [facility] PREOP LEFT INGUINAL HERNIA REPAIR [id number] 03/09/2017 07:30:00 03/09/2017 14:07:00 DIS Outpatient ORVILLE SULLIVAN DO [facility] RIGHT INGUINAL HERNIA [id number] 03/06/2017 12:40:00 03/06/2017 13:31:00 DIS Outpatient ORVILLE SULLIVAN DO [facility] PREOP RIGHT INGUINAL HERNIA REPAIR [id number] 02/25/2017 12:23:00 02/25/2017 17:15:00 DIS Emergency DEQUAN JAMISON [facility] ER HERNIA [id number] 08/24/2016 09:59:00 08/24/2016 23:59:59 CLS Outpatient ZURI HENNESSY DIALS INSPECTOR [facility] RT CHRONIC COUGH [id number] 08/11/2016 09:46:00 08/11/2016 23:59:59 CLS Outpatient ZURI HENNESSY DIALS INSPECTOR [facility] RAD CHRONIC COUGH [id number] 07/15/2015 23:20:00 07/16/2015 01:39:00 DIS Emergency SISI ALCALA DO [facility] ER CHEST CONGESTION [id number] 11/13/2013 12:49:00 11/13/2013 23:59:59 CLS Outpatient KYLEEOCONDEANNA LUNA MD [facility] CARD ATRIAL FIBRILLATION [id number] 08/23/2013 16:26:00 08/23/2013 18:22:00 DIS Emergency FRANNY STAUFFER MD [facility] ER FALL,RIB PAIN [id number] 08/27/2018 10:30:00 PEN Preadmit ORVILLE SULLIVAN DO [facility] CHOLEDOCHOLITHIASIS [id number] 06/13/2013 13:19:00 06/13/2013 23:59:59 CLS Outpatient GOGO KELLY DO
[2018-08-27] MEDS ORDERED: LACTATED RINGERS 1,000 ML IV PRN (09:50)
[2018-08-27] MEDS ORDERED: ceFAZolin INJECTION 1,000 MG in NS (IVPB) 50 ML IV ONE (10:00)
[2018-08-27] MEDS ORDERED: LIDOCAINE PF 2% 5 ML (XYLOCAINE) VIAL ONE (10:09)
[2018-08-27] MEDS ORDERED: SUCCINYLCHOLINE INJ 100 MG/5 ML SYR ONE (10:09)
[2018-08-27] MEDS ORDERED: ROCURONIUM 10 MG/ML 5 ML SYRINGE IV ONE (10:09)
[2018-08-27] MEDS ORDERED: ONDANSETRON 4 MG/2 ML (SDV) Z0FRAN ONE (10:09)
[2018-08-27] MEDS ORDERED: MIDAZOLAM 2 MG/2 ML (VERSED) VIAL ONE (10:10)
[2018-08-27] MEDS ORDERED: fentaNYL INJECTION 100 MCG/2 ML AMP ONE (10:10)
[2018-08-27] MEDS ORDERED: DEXAMETHASONE 10 MG/ML (DECADRON) 1 ML VIAL ONE (10:12)
[2018-08-27] MEDS ORDERED: SEVOFLURANE (ULTANE) 15 ML INHAL SOLN ONE ×5 (10:12→11:37)
--- NOTE | 2018-08-27 10:20 | Progress Note-Pre Operative ---
Pre-Operative Progress Note H&P Reviewed The H&P was reviewed, patient examined and no changes noted. Date Seen by Provider: Aug 27, 2018 Time Seen by Provider: 10:20 Date H&P Reviewed: Aug 27, 2018 Time H&P Reviewed: 10:20 Pre-Operative Diagnosis: choledocholithiasis ORVILLE SULLIVAN DO Aug 27, 2018 10:20
[2018-08-27] MEDS ORDERED: BUPIVACAINE 0.5% 30 ML (SENSORCAINE) VIAL ONE (10:22)
[2018-08-27] MEDS ORDERED: LIDOCAINE 1% INJ 20 ML 20 ML VIAL ONE (10:22)
[2018-08-27] MEDS ORDERED: IOHEXOL 300 MG/ML 30 ML (OMNIPAQUE 300) VIAL IV ONE (11:30)
[2018-08-27] MEDS ORDERED: proPOfol 200 MG/20 ML (DIPRIVAN) VIAL IV ONE (11:31)
--- NOTE | 2018-08-27 11:34 | Progress Note-Post Operative ---
Post-Operative Progess Note Surgeon (s)/Mobility Architect (s) Surgeon ORVILLE SULLIVAN DO Mobility Architect: Dr. Fowler Pre-Operative Diagnosis choledocholithiasis Post-Operative Diagnosis same Procedure & Operative Findings Date of Procedure 08/27/18 Procedure Performed/Findings lap genaro c ioc Anesthesia Type gen Estimated Blood Loss Estimated blood loss (mL): min Specimens/Packing Specimens Removed gallbladder ORVILLE SULLIVAN DO Aug 27, 2018 11:34
[2018-08-27] MEDS ORDERED: ACHD5005 PO (11:35)
[2018-08-27] MEDS ORDERED: DOCU-143 PO (11:35)
--- NOTE | 2018-08-27 11:36 | Discharge Inst-Simple/Standard ---
Discharge Inst-Standard Discharge Medications New, Converted or Re-Newed RX: RX on Chart Patient Instructions/Follow Up Plan of Care/Instructions/FU: 2 weeks Мария Activity as Tolerated: No Discharge Diet: Regular Diet Other Inst to Patient Follow up Appt: Make appointment for 2 weeks. Instructions: No lifting greater than 10 pounds. No strenuous activity. May shower in 24 hours, no tub bath or soaking. Use incentive spirometer at home as directed. No Smoking Skin/Wound Care: You have special glue over incision it will fall off on its own. Symptoms to Report: Appetite Changes, Extremity Discoloration, Numbness/Tingling, Swelling Increased , Bleeding Excessive, Eyesight Changes, Pain Increased, Urine Color Change, Constipation(Persistent), Fever over 101 degree F, Pain/Pressure in chest, Urinating Difficulty, Cough Up/Vomit Blood, Heart Beat Irreg/Pounding, Pain/ Pressure in jaw, Vaginal Bleeding Increase, Cramps in feet or legs, Lightheadedness, Pain/Pressure in shoulder, Diarrhea(Persistent), Memory Changes Suddenly, Questions/Concerns, Weight gain consecutive days, Dizziness/ Fainting, Nausea/Vomiting, Shortness of Breath, Weight gain over 2 pounds. If eyes or skin turn yellow notify physician. If questions or concerns contact your physician Or seek help at emergency department. ORVILLE SULLIVAN DO Aug 27, 2018 11:36
[2018-08-27] MEDS ORDERED: NEOSTIGMINE 1 MG/ML 5 ML SYRINGE ONE (11:38)
[2018-08-27] MEDS ORDERED: GLYCOPYRROLATE 0.2 MG/ML (ROBINUL) 2 ML VIAL ONE (11:38)
[2018-08-27] MEDS ORDERED: fentaNYL INJECTION 100 MCG/2 ML AMP IVP ONE (12:00)
[2018-08-27] MEDS ORDERED: ONDANSETRON 4 MG/2 ML (SDV) Z0FRAN IVP PRN (12:00)
[2018-08-27] MEDS ORDERED: PROMETHAZINE INJ 25 MG/ML (PHENERGAN) AMP IVP ONE (12:00)
[2018-08-27] MEDS ORDERED: MEPERIDINE (DEMEROL) INJ 50 MG/ML IVP ONE (12:00)
--- NOTE | 2018-08-27 12:17 | Anesthesia-General Post-Op ---
General Patient Condition Mental Status/LOC: Same as Preop Cardiovascular: Satisfactory Nausea/Vomiting: Absent Respiratory: Satisfactory Pain: Controlled Complications: Absent Post Op Complications Complications None Follow Up Care/Instructions Patient Instructions None needed. Anesthesia/Patient Condition Patient Condition Patient is doing well, no complaints, stable vital signs, no apparent adverse anesthesia problems. No complications reported per nursing. SYDNIE FLORES CRNA Aug 27, 2018 12:17
[2018-08-27 12:50] VITALS: BP 150/78
--- NOTE | 2018-08-27 12:50 | NUR ---
TO AMB SURG FROM PAR PER CART. AWAKE, RATES MID ABD PAIN 3. DERMABOND INTACT TO X4 LAP ABD SITES, ICE PACK ON. PO FLUIDS PROVIDED.
--- NOTE | 2018-08-27 13:14 | Diagnostic Imaging Report ---
INDICATION: Laparoscopic cholecystectomy. TECHNIQUE: Fluoroscopy was provided in the OR during intraoperative cholangiogram. 12 seconds of fluoroscopy was utilized. FINDINGS: Images demonstrate contrast being injected via the cystic duct remnant. The intrahepatic and extrahepatic bile ducts are normal in caliber. No filling defects are seen to suggest a retained stone. Contrast does pass into the duodenum. IMPRESSION: Fluoroscopy during intraoperative cholangiogram. Dictated by: Dictated on workstation # [id number]
[2018-08-27 13:44] VITALS: BP 154/79
[2018-08-27] MEDS: HYDROcodone/APAP 5 MG/325 MG (LORTAB) TAB PO PRN ×2 (13:44→14:17)
--- NOTE | 2018-08-27 13:44 | NUR ---
TAKING PO FLUIDS WITHOUT PROBLEM AND HAS EATEN A FEW CRACKERS. LORTAB 5/325 MG, ONE TAB, GIVEN PO FOR C/O MID ABD SURGICAL SITE PAIN RATED 4.
--- NOTE | 2018-08-27 14:17 | NUR ---
CONTINUES TO RATE MID ABD SURGICAL SITE PAIN 4, REQUESTING ADDITIONAL PAIN MEDICATION. NO CHANGE IN SITE ASSESSMENT. LORTAB 5/325 MG, ONE TAB, GIVEN PO.
[2018-08-27 15:00] VITALS: BP 140/79
--- NOTE | 2018-08-27 15:00 | NUR ---
HAS BEEN RESTING QUIETLY, EYES CLOSED, FOR PAST 30 MIN. AWAKENS EASILY, REPORTS SURGICAL SITE PAIN "MUCH BETTER", RATED 2. READY TO PROCEED WITH DISMISSAL. NO CHANGE IN SITE ASSESSMENT.
[2018-08-27 15:30] VITALS: BP 140/79
--- NOTE | 2018-08-28 02:02 | OPERATIVE REPORT ---
DATE OF SERVICE: 08/27/2018 PREOPERATIVE DIAGNOSIS: Choledocholithiasis. POSTOPERATIVE DIAGNOSIS: Choledocholithiasis. PROCEDURE: Laparoscopic cholecystectomy with intraoperative cholangiogram. SURGEON: Orville Hsieh DO ASSISTANT PROFESSOR OF EDUCATION: Dr. Fowler, assisted in retraction, dissection and closure. ANESTHESIA: General. ESTIMATED BLOOD LOSS: Minimal. COMPLICATIONS: None. INDICATIONS: The patient is a 78-year-old male with choledocholithiasis history and had ERCP. He has been having intermittent abdominal pain. He was explained risks and benefits of procedure and wished to proceed with procedure. Consent was signed in the chart. DESCRIPTION OF PROCEDURE: The patient was taken to the operating suite, was prepped and draped in sterile fashion. Surgical pause was performed. Local anesthetic was infiltrated just above the umbilicus. An 11 blade scalpel was used to make incision and cautery was used to dissect down to the fascia, which was then scored, grasped and elevated. The abdomen was then entered. A 0 Vicryl was placed in a arugfa-ya-dqqct fashion for closure at the end of the case. A balloon trocar was inserted in the abdomen and pneumoperitoneum was achieved. Under direct visualization of the laparoscope, a 5 mm trocar was then placed in the subxiphoid region and two 5 mm trocars were placed in the right upper quadrant. Gallbladder was grasped, elevated, had several adhesions and thickening appearance around the gallbladder as well. The cystic duct and cystic artery were then dissected out. Clips were placed on the proximal and distal portion of the cystic artery and a clip was placed on the distal portion of the cystic duct. The duct then had the Arrow catheter inserted and a cholangiogram was performed. There were no filling defects and contrast made its way into the duodenum without difficulty. There was a small stone within the cystic duct, which was evacuated. Once catheter was removed, clips were placed on the proximal portion of the cystic duct, and then the duct and artery were then completely transected. Hook cautery was used to dissect the gallbladder from the gallbladder fossa achieving hemostasis. Once removed, it was placed in an Endobag and removed through the 12 mm trocar site. Copious amounts of irrigation was used to irrigate and suction the abdomen. The abdomen was then desufflated, the trocars were removed. The 0 Vicryl that was placed at the beginning of the case was then closed, closing the 12 mm fascial defect. The skin was then closed using 4-0 Monocryl in a subcuticular fashion. The abdomen was then washed and dried and Skin Affix was placed over the incisions. The patient tolerated procedure well without any complications. He was taken to recovery room in stable condition. Job ID: [id number] DocumentID: [id number] Dictated Date: 08/27/2018 17:49:31 Academic Affairs Dean Date: 08/28/2018 02:01:25 Dictated By: ORVILLE HSIEH DO
== END 2018-08-27 15:30 | disposition home or self-care (01) ==
LOC: SDC 09:41
PROVIDERS: ATTEND Surgery
DX: K80.64 Calculus of gallbladder and bile duct with chronic cholecystitis without obstruction (principal); Z11.2 Encounter for screening for other bacterial diseases; I10 Essential (primary) hypertension; E78.5 Hyperlipidemia, unspecified; I25.119 Atherosclerotic heart disease of native coronary artery with unspecified angina pectoris; Z79.82 Long term (current) use of aspirin; Z79.899 Other long term (current) drug therapy; Z87.891 Personal history of nicotine dependence; Z95.5 Presence of coronary angioplasty implant and graft
CPT/HCPCS: 87081; 94664

== ENCOUNTER 2018-10-03 07:57 | Emergency (ER) | payer MEDICARE ==
[~2018-10-03] VITALS: Ht 177.8 cm; Wt 68.1 kg
[2018-10-03] MEDS ORDERED: TETANUS,DIPTH,PERTUSS P/F (BOOSTRIX) 0.5 ML VIAL IM ONE (08:30)
[2018-10-03] MEDS ORDERED: AMOX-358 PO (08:45)
[2018-10-03] MEDS ORDERED: LIDOCAINE/EPI 1%-1:100,000 (XYLOCAINE) 20ML INJ ONE (08:45)
--- NOTE | 2018-10-03 08:45 | ED Upper Extremity ---
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 Nursing Sepsis Screen: No Definite Risk Source: patient Exam Limitations: no limitations History of Present Illness Date Seen by Provider: Oct 03, 2018 Time Seen by Provider: 08:17 Initial Comments Here with report of injury to the left hand. States his dog scratched him on the hand and has a skin tear or laceration. Denies other injury. Tetanus is not up-to-date. He is not on blood thinners. Onset: this morning Severity: mild Pain/Injury Location: left hand Method of Injury: incised Modifying Factors: Improves With Immobilization, Improves With Rest Allergies and Home Medications Allergies Coded Allergies: ticlopidine (Verified Allergy, Mild, HIVES, 08/23/18) Home Medications Amoxicillin/Potassium Clav 1 Each Tablet, 1 EACH PO BID Prescribed by: SHRAVAN SHEPHERD on 10/03/18 0845 Aspirin 325 Mg Tablet, 325 MG PO DAILY, (Reported) Atorvastatin Calcium 10 Mg Tablet, 10 MG PO DAILY, (Reported) Docusate Sodium 100 Mg Capsule, 100 MG PO DAILY Prescribed by: ORVILLE SULLIVAN on 08/27/18 1135 Folic Acid 1 Mg Tablet, 3 MG PO DAILY, (Reported) TAKES 3 (1MG) TABLETS Hydrocodone Bit/Acetaminophen 1 Tab Tab, 1-2 TAB PO Q6H PRN for PAIN-MODERATE Prescribed by: ORVILLE SULLIVAN on 08/27/18 1135 Lisinopril 10 Mg Tablet, 5 MG PO DAILY, (Reported) TAKES 1/2 (10MG) TABLET [place] 3 Polyunsat Fatty Acids 1,000 Mg Cap, 1,000 MG PO DAILY, (Reported) Patient Home Medication List Home Medication List Reviewed: Yes Review of Systems Constitutional: see HPI; No chills, No fever Respiratory: no symptoms reported Cardiovascular: no symptoms reported Skin: see HPI, lesions Psychiatric/Neurological: No Symptoms Reported Past Nqfzuqv-Ielbtu-Whhmwl Hx Past Med/Social Hx: Reviewed Nursing Past Med/Soc Hx Patient Social History Alcohol Use: Denies Use Number of Drinks Today: BB Alcohol Beverage of Choice: [place] Recreational Drug Use: Yes (ETOH) Smoking Status: Never a Smoker Former Smoker, Quit: Mar 06, 1977 Recent Foreign Travel: No Contact w/Someone Who Travel: No Recent Infectious Disease Expo: No Recent Hopitalizations: No Immunizations Up To Date Tetanus Booster (TDap): Unknown Date of Pneumonia Vaccine: Jun 06, 2016 Date of Influenza Vaccine: May 14, 2018 Seasonal Allergies Seasonal Allergies: No Past Medical History Surgeries: Yes (RIGHT inguinal HERNIA REPAIR X, CARDIAC CATHS--STENTS X 5, CARDIAC ABLATION) Cardiac, Coronary Stent Respiratory: Yes Chronic Bronchitis, COPD Currently Using CPAP: No Currently Using BIPAP: No Cardiac: Yes (STENT X5, CARDIAC ABLATION FOR ATRIAL FIB/FLUTTER) Atrial Fibrillation, Coronary Artery Disease, High Cholesterol, Hypertension Neurological: No Reproductive Disorders: No Sexually Transmitted Disease: No HIV/AIDS: No Genitourinary: Yes Benign Prostatic Hyperpl, Kidney Stones Gastrointestinal: No Musculoskeletal: Yes Chronic Back Pain Endocrine: No HEENT: Yes Loss of Vision: Bilateral Hearing Impairment: Denies Cancer: No Psychosocial: No Integumentary: No Blood Disorders: No Adverse Reaction/Blood Tranf: No (N/A) Family Medical History Reviewed Nursing Family Hx No Pertinent Family Hx Physical Exam Vital Signs Vital Signs - First Documented 10/03/18 08:02 Temp 96.2 Pulse 72 Resp 18 B/P (MAP) 148/80 (102) Pulse Ox 98 O2 Delivery Room Air Capillary Refill : Less Than 3 Seconds Height, Weight, BMI Height: 5'10.00" Weight: 150lbs. 2.0oz. 68.422047jm; 21.5 BMI Method:Stated General Appearance: WD/WN, no apparent distress Cardiovascular: regular rate, rhythm, no murmur Respiratory: lungs clear, normal breath sounds Hand: normal ROM, Left, laceration (approximately 5 cm laceration to the dorsum of the left hand. Bleeding controlled. Retained range of motion distally as well as circulation and sensation.) Neurologic/Tendon: normal sensation, normal motor functions, normal tendon functions Neurologic/Psychiatric: alert, oriented x 3 Skin: warm/dry, ecchymosis (surrounding wound on left hand) Procedures/Interventions Wound Location: Upper Extremities Other Wound Location Left hand dorsum Wound Length (cm): 5 Wound's Depth, Shape: superficial Wound Explored: contaminated Irrigated w/ Saline (ccs): 250 Betadine Prep?: Yes Anesthesia: Lidocaine w/ Epi Volume Anesthetic (ccs): 250 Wound Debrided: minimal Suture: Prolene Suture Size: 5-0 Number of Sutures: 8 Layer Closure?: 1 Number Deep Layer Sutures: 0 Sterile Dressing Applied?: Yes Progress Wound cleaned with copious saline and surgical scrub. Flushed cleaned. Closed with simple her upper sutures. Tolerated procedure well with no complications. Covered with antibiotic ointment and dressing. Progress/Results/Core Measures Results/Orders My Orders Orders - SHRAVAN SHEPHERD MD Dipht,Pertuss(Acell),Tet Adult (Boostrix (10/03/18 08:30) Lidocaine/Epi 1% 1:100,000 (Xylocaine /E (10/03/18 08:45) Lidocaine/Epi 2% 1:100,000 (Xylocaine/Ep (10/03/18 09:00) Medications Given in ED Current Medications Medications Dose Ordered Sig/Ena Route Start Time Stop Time Status Last Admin Dose Admin Diphtheria/ Tetanus/Acell Pertussis 0.5 ml ONCE ONCE IM 10/03/18 08:30 10/03/18 08:31 DC 10/03/18 08:24 0.5 ML Lidocaine/ Epinephrine 20 ml ONCE ONCE INJ 10/03/18 09:00 10/03/18 09:01 DC 10/03/18 09:32 20 ML Vital Signs/I&O 10/03/18 08:02 Temp 96.2 Pulse 72 Resp 18 B/P (MAP) 148/80 (102) Pulse Ox 98 O2 Delivery Room Air Blood Pressure Mean: 102 Progress Progress Note : Progress Note Seen and evaluated. Tetanus updated. Wound cleaned copiously and closed with simple interrupted sutures. Tolerated procedure well with no complications. Discharged home with return precautions. Patient verbalize understanding instructions and agreement with plan. Departure Impression Primary Impression: Hand laceration Qualified Codes: S61.412A - Laceration without foreign body of left hand, initial encounter Disposition: HOME, SELF-CARE Condition: Improved Departure-Patient Inst. Decision time for Depature: 08:44 Referrals: BRYON MARIN MD (PCP/Family) Primary Care Physician Patient Instructions: Laceration Repair With Stitches (DC) Add. Discharge Instructions: All discharge instructions reviewed with patient and/or family. Voiced understanding. Sutures out in 10-14 days. Keep wound clean. You may shower but do not soak wound for any prolonged period of time. Use antibiotic ointment and dressing over wound twice daily for the next 5-7 days and then you may use drugs Band- Aid after that as needed to protect the wound. Return for worse pain, swelling , foul-smelling drainage, red streaks up the hand or arm or other concerns as needed. Take antibiotics as directed. Scripts Amoxicillin/Potassium Clav (Augmentin 875-125 Tablet) 1 Each Tablet 1 EACH PO BID, #14 TAB 0 Refills Prov: SHRAVAN SHEHPERD MD 10/03/18 SHRAVAN SHEPHERD MD Oct 03, 2018 08:45
[2018-10-03] MEDS ORDERED: LIDOCAINE/EPI 2% 1:100,00 (XYLOCAINE) 20 ML VIAL INJ ONE (09:00)
[2018-10-03 10:09] VITALS: BP 148/80
--- OUTSIDE RECORDS SUMMARY | 2018-10-03 11:27 | XMS REPORT | Clinical Summary ---
Author Author [facility] Organization [facility] Address Unknown Phone Unavailable Care Team Providers Care Health Facilities Surveyor Name Role Phone Elieser Atkinson MD PCP [...] 04/01/20 Active oral route every day 11 [id number] Take 1 capsule by mouth Active o-ast [...] Problem Noted Date Simple chronic bronchitis ([facility]) 10/12/2017 COPD (chronic obstructive pulmonary disease) ([facility]) 10/31/2016 Mixed hyperlipidemia 09/14/2015 Coronary artery disease involving [place] coronary artery without angina pectoris Essential hypertension 09/14/2015 Paroxysmal atrial flutter (HCC) Paroxysmal atrial fibrillation (HCC) Overview: PAF and flutter/S/P RFA 2012 S/P coronary artery stent placement Overview: Multiple PCI Encounters Date Type Specialty Care Team Description 07/27/2018 Documentation Cardiology Mk Paz MD from Last 3 Months Family History Medical History Relation Name Comments Coronary artery disease Father Heart attack Mother Relation Name Status Comments Father Cause of was CAD at age 84. (Age 84) Mother Cause of was ID at age 89. (Age 89) Social History [...] Description 11/06/2018 Office Visit Cardiology Mariana Antonio, ROAD MECHANIC [address] [place] [address] [phone] Health Maintenance Due Date Last Done Comments Medicare Annual Wellness 1940 Td # 1940 Zoster Vaccine# (1 of 2) 1991 Depression Screening 2006 PHQ-9 # Fall Risk Assessment # 2006 Pneumococcal Immunization 2006 65+ (1 of 2 - PCV13) Spirometry # 08/24/2017 08/24/2016 Influenza Vaccine (#1) 2018 05/20/2017 Procedures Procedure Name Priority Date/Time Associated Diagnosis Comments LAB OUTSIDE RECORD Routine 07/27/2018 12:00 AM ELECTRIC BLANKET PACKER from Last 3 Months Results * Lab Outside Record (07/27/2018) Narrative Performed At from Last 3 Months
--- OUTSIDE RECORDS SUMMARY | 2018-10-03 11:27 | XMS REPORT | Encounter Summary ---
Author Author [facility] Organization [facility] Address Unknown Phone Unavailable Care Team Providers Care Machine Steak Tenderizer Name Role Phone Elieser Atkinson MD PCP Encounter Details Date Type Department Care Team Description 07/27/2018 Documentation [facility] Jackson, Mk Shine MD Cardiovascular [address] [facility] [address] [id number] [place] [address] [address] [place] [address] [phone] Social History Tobacco Use Types Packs/Day Years Used Date Former Smoker Cigarettes 1.5 30 Quit: 08/21/1974 Smokeless Tobacco: Never Used Alcohol Use Drinks/Week oz/Week Comments Yes 21 Standard 12.6 drinks or equivalent Sex Assigned at Date Recorded Not on file as of this encounter Plan of Treatment Date Type Specialty Care Team Description 11/06/2018 Office Visit Cardiology Mariana Antonio, ADVERTISING AGENT [address] [facility], [facility] [address] [place] [address] [phone] as of this encounter Procedures Procedure Name Priority Date/Time Associated Diagnosis Comments LAB OUTSIDE RECORD Routine 07/27/2018 12:00 AM MANAGER CONTROL in this encounter Results * Lab Outside Record (07/27/2018) Narrative Performed At in this encounter Visit Diagnoses Not on filein this encounter
--- OUTSIDE RECORDS SUMMARY | 2018-10-03 11:28 | XMS REPORT | Continuity of Care Document ---
Author Author [facility] Organization [facility] Address Unknown Phone Unavailable Allergies Active Description Code Type Severity Reaction Onset Reported/Identified Relationship to Patient Clinical Status Yes ticlopidine [id number] Drug Allergy Unknown N/A 03/06/2017 Yes ticlopidine [id number] Drug Allergy Mild HIVES 08/23/2018 Medications There [...] APRN Ot R05 COUGH 09/02/2016 ZURI HENNESSY LICENSED MASS REAL ESTATE APPRAISER Ot R05 COUGH 09/12/2016 ZURI HENNESSY APRN Ot R05 COUGH 10/17/2016 ZURI HENNESSY LICENSED MASS REAL ESTATE APPRAISER Ot R05 COUGH 10/20/2016 ZURI HENNESSY APRN Ot R05 COUGH 02/25/2017 DEQUAN JAMISON Ot E78.00 PURE HYPERCHOLESTEROLEMIA, UNSPECIFIED 02/25/2017 DEQUAN JAMISON Ot I10 ESSENTIAL (PRIMARY) HYPERTENSION 02/25/2017 DEQUAN JAMSION Ot I25.10 ATHSCL HEART DISEASE OF [place] CORONARY 02/25/2017 DEQUAN JAMISON Ot I48.91 UNSPECIFIED ATRIAL FIBRILLATION 02/25/2017 DEQUAN JAMISON Ot I48.92 UNSPECIFIED ATRIAL FLUTTER 02/25/2017 DEQUAN JAMISON Ot K40.90 UNIL INGUINAL HERNIA, W/O OBST OR GANGR, 02/25/2017 DEQUAN JAMISON Ot K80.20 CALCULUS OF GALLBLADDER W/O CHOLECYSTITI 02/25/2017 DEQUAN JAMISON Ot Z79.01 RENT CONTROL OFFICE MANAGER (CURRENT) USE OF ANTICOAGULANT 02/25/2017 DEQUAN JAMISON Ot Z79.82 RENT CONTROL OFFICE MANAGER (CURRENT) USE OF ASPIRIN 02/25/2017 DEQUAN JAMISON Ot 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 ANGIOPLASTY IMPLANT 02/28/2017 DEQUAN JAMISON Ot E78.00 PURE HYPERCHOLESTEROLEMIA, UNSPECIFIED 02/28/2017 DEQUAN JAMISON Ot I10 ESSENTIAL (PRIMARY) HYPERTENSION 02/28/2017 DEQUAN JAMISON Ot I25.10 ATHSCL HEART DISEASE OF [place] CORONARY 02/28/2017 DEQUAN JAMISON Ot I48.91 UNSPECIFIED ATRIAL FIBRILLATION 02/28/2017 DEQUAN JAMISON Ot I48.92 UNSPECIFIED ATRIAL FLUTTER 02/28/2017 DEQUAN JAMISON Ot K40.90 UNIL INGUINAL HERNIA, W/O OBST OR GANGR, 02/28/2017 DEQUAN JAMISON Ot K80.20 CALCULUS OF GALLBLADDER W/O CHOLECYSTITI 02/28/2017 DEQUAN JAMISON Ot Z79.01 RENT CONTROL OFFICE MANAGER (CURRENT) USE OF ANTICOAGULANT 02/28/2017 DEQUAN JAMISON Ot Z79.82 RENT CONTROL OFFICE MANAGER (CURRENT) USE OF ASPIRIN 02/28/2017 DEQUAN JAMISON Ot 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 ANGIOPLASTY IMPLANT 03/06/2017 ROVILLE SULLIVAN DO Ot K40.90 UNIL INGUINAL HERNIA, [...] DO Ot I25.10 ATHSCL HEART DISEASE OF [place] CORONARY 03/09/2017 ORVILLE SULLIVAN DO Ot I48.91 UNSPECIFIED ATRIAL FIBRILLATION 03/09/2017 ORVILLE SULLIVAN DO Ot J44.9 CHRONIC OBSTRUCTIVE PULMONARY DISEASE, U 03/09/2017 ORVILLE SULLIVAN DO Ot K40.91 UNILATERAL INGUINAL HERNIA, W/O OBST OR 03/09/2017 ORVILLE SULLIVAN DO Ot Z79.899 OTHER RENT CONTROL OFFICE MANAGER (CURRENT) DRUG THERAPY 03/09/2017 ORVILLE SULLIVAN DO Ot Z87.891 PERSONAL HISTORY OF NICOTINE DEPENDENCE 03/09/2017 ORVILLE SULLIVAN DO Ot 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 ANGIOPLASTY IMPLANT 03/13/2017 ORVILLE SULLIVAN DO Ot E78.5 HYPERLIPIDEMIA, UNSPECIFIED 03/13/2017 ORVILLE SULLIVAN DO Ot I10 ESSENTIAL (PRIMARY) HYPERTENSION 03/13/2017 ORVILLE SULLIVAN DO Ot I25.10 ATHSCL HEART DISEASE OF [place] CORONARY 03/13/2017 ORVILLE SULLIVAN DO Ot I48.91 UNSPECIFIED ATRIAL FIBRILLATION 03/13/2017 ORVILLE SULLIVAN DO Ot J44.9 CHRONIC OBSTRUCTIVE PULMONARY DISEASE, U 03/13/2017 ORVILLE SULLIVAN DO Ot K40.91 UNILATERAL INGUINAL HERNIA, W/O OBST OR 03/13/2017 ORVILLE SULLIVAN DO Ot Z79.899 OTHER RENT CONTROL OFFICE MANAGER (CURRENT) DRUG THERAPY 03/13/2017 ORVILLE SULLIVAN DO Ot Z87.891 PERSONAL HISTORY OF NICOTINE DEPENDENCE 03/13/2017 ORVILLE SULLIVAN DO Ot 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 ANGIOPLASTY IMPLANT 05/21/2018 BROOKE EUCEDA, DEANNA Shine Ot 272.4 HYPERLIPIDEMIA NEC/NOS 05/21/2018 DEANNA COX MD Ot 401.1 BENIGN HYPERTENSION 05/21/2018 DEANNA COX MD Ot 414.01 CORONARY ATHEROSCLEROSIS OF [place] CORON 05/21/2018 DEANNA COX MD Ot 427.31 ATRIAL FIBRILLATION 05/21/2018 DEANNA COX MD Ot 427.32 ATRIAL FLUTTER 05/21/2018 DEANNA COX MD Ot V58.61 ANTICOAGULANTS,LT,CURRENT USE 05/21/2018 ZURI HENNESSY LICENSED MASS REAL ESTATE APPRAISER Ot R05 COUGH 05/21/2018 ZURI HENNESSY LICENSED MASS REAL ESTATE APPRAISER Ot R05 COUGH 05/24/2018 ORVILLE SULLIVAN DO Ot 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 05/24/2018 ORVILLE SULLIVAN DO Ot E78.5 HYPERLIPIDEMIA, UNSPECIFIED 05/24/2018 ORVILLE SULLIVAN DO Ot I10 ESSENTIAL (PRIMARY) HYPERTENSION 05/24/2018 ORVILLE SULLIVAN DO Ot I25.10 ATHSCL HEART DISEASE OF [place] CORONARY 05/24/2018 ORVILLE SULLIVAN DO Ot J44.9 CHRONIC OBSTRUCTIVE PULMONARY DISEASE, U 05/24/2018 ORVILLE SULLIVAN DO Ot K40.30 UNIL INGUINAL HERNIA, W OBST, W/O GANGR, 05/24/2018 ORVILLE SULLIVAN DO Ot Z79.82 [facility]FP (CURRENT) USE OF ASPIRIN 05/24/2018 ORVILLE SULLIVAN DO Ot Z79.899 OTHER MCFP (CURRENT) DRUG THERAPY 05/24/2018 ORVILLE SULLIVAN DO Ot Z87.891 PERSONAL HISTORY OF NICOTINE DEPENDENCE 05/24/2018 ORVILLE SULLIVAN DO Ot 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 ANGIOPLASTY IMPLANT 05/27/2018 ETELVINA ALFORD MD Ot E78.00 PURE HYPERCHOLESTEROLEMIA, UNSPECIFIED 05/27/2018 ETELVINA ALFORD MD Ot I10 ESSENTIAL (PRIMARY) HYPERTENSION 05/27/2018 ETELVINA ALFORD MD Ot I25.10 ATHSCL HEART DISEASE OF [place] CORONARY 05/27/2018 ETELVINA ALFORD MD Ot I48.91 UNSPECIFIED ATRIAL FIBRILLATION 05/27/2018 ETELVINA ALFORD MD Ot K56.7 ILEUS, UNSPECIFIED 05/27/2018 ETELVINA ALFORD MD Ot K59.00 CONSTIPATION, UNSPECIFIED 05/27/2018 ETELVINA ALFORD MD Ot R10.13 EPIGASTRIC PAIN 05/27/2018 ETELVINA ALFORD MD Ot Z79.51 MCFP (CURRENT) USE OF INHALED STERO 05/27/2018 ETELVINA ALFORD MD Ot Z79.82 RENT CONTROL OFFICE MANAGER (CURRENT) USE OF ASPIRIN 05/27/2018 ETELVINA ALFORD MD Ot Z87.442 PERSONAL HISTORY OF URINARY CALCULI 05/27/2018 ETELVINA ALFORD MD Ot Z87.891 PERSONAL HISTORY OF NICOTINE DEPENDENCE 05/27/2018 ETELVINA ALFORD MD Ot Z88.8 ALLERGY STATUS TO [facility] DRUG/MEDS/BIOL SUB 05/27/2018 ETELVINA ALFORD MD Ot 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 ANGIOPLASTY IMPLANT 05/27/2018 ETELVINA ALFORD MD Ot Z98.890 OTHER SPECIFIED POSTPROCEDURAL STATES 05/28/2018 ORVILLE SULLIVAN DO Ot 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 05/28/2018 ORVILLE SULLIVAN DO Ot E78.5 HYPERLIPIDEMIA, UNSPECIFIED 05/28/2018 ORVILLE SULLIVAN DO Ot I10 ESSENTIAL (PRIMARY) HYPERTENSION 05/28/2018 ORVILLE SULLIVAN DO Ot I25.10 ATHSCL HEART DISEASE OF [place] CORONARY 05/28/2018 ORVILLE SULLIVAN DO Ot J44.9 CHRONIC OBSTRUCTIVE PULMONARY DISEASE, U 05/28/2018 ROVILLE SULLIVAN DO Ot K40.30 UNIL INGUINAL HERNIA, W OBST, W/O GANGR, 05/28/2018 ORVILLE SULLIVAN DO Ot Z79.82 RENT CONTROL OFFICE MANAGER (CURRENT) USE OF ASPIRIN 05/28/2018 ORVILLE SULLIVAN DO Ot Z79.899 OTHER RENT CONTROL OFFICE MANAGER (CURRENT) DRUG THERAPY 05/28/2018 ORVILLE SULLIVAN DO Ot Z87.891 PERSONAL HISTORY OF NICOTINE DEPENDENCE 05/28/2018 ORVILLE SULLIVAN DO Ot 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 ANGIOPLASTY IMPLANT 05/29/2018 ETELVINA ALFORD MD Ot E78.00 PURE HYPERCHOLESTEROLEMIA, UNSPECIFIED 05/29/2018 ETELVINA ALFORD MD Ot I10 ESSENTIAL (PRIMARY) HYPERTENSION 05/29/2018 ETELVINA ALFORD MD Ot I25.10 ATHSCL HEART DISEASE OF [place] CORONARY 05/29/2018 ETELVINA ALFORD MD, Ot I48.91 UNSPECIFIED ATRIAL FIBRILLATION 05/29/2018 ETELVINA ALFORD MD Ot K56.7 ILEUS, UNSPECIFIED 05/29/2018 ETELVINA ALFORD MD Ot K59.00 CONSTIPATION, UNSPECIFIED 05/29/2018 ETELVINA ALFORD MD Ot R10.13 EPIGASTRIC PAIN 05/29/2018 ETELVINA ALFORD MD Ot Z79.51 RENT CONTROL OFFICE MANAGER (CURRENT) USE OF INHALED STERO 05/29/2018 ETELVINA ALFORD MD Ot Z79.82 [facility]FP (CURRENT) USE OF ASPIRIN 05/29/2018 ETELVINA ALFORD [...] DO Ot I25.10 ATHSCL HEART DISEASE OF [place] CORONARY 06/01/2018 ORVILLE SULLIVAN DO Ot J44.9 CHRONIC OBSTRUCTIVE PULMONARY DISEASE, U 06/01/2018 ORVILLE SULLIVAN DO Ot K40.30 UNIL INGUINAL HERNIA, W OBST, W/O GANGR, 06/01/2018 ORVILLE SULLIVAN DO Ot Z79.82 RENT CONTROL OFFICE MANAGER (CURRENT) USE OF ASPIRIN 06/01/2018 ORVILLE SULLIVAN DO Ot Z79.899 OTHER RENT CONTROL OFFICE MANAGER (CURRENT) DRUG THERAPY 06/01/2018 ORVILLE SULLIVAN DO Ot Z87.891 PERSONAL HISTORY OF NICOTINE DEPENDENCE 06/01/2018 ORVILLE SULLIVAN DO Ot 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 ANGIOPLASTY IMPLANT 07/27/2018 ETELVINA ALFORD MD Ot E78.00 PURE HYPERCHOLESTEROLEMIA, UNSPECIFIED 07/27/2018 ETELVINA ALFORD MD Ot I10 ESSENTIAL (PRIMARY) HYPERTENSION 07/27/2018 ETELVINA ALFORD MD Ot I25.10 ATHSCL HEART DISEASE OF [place] CORONARY 07/27/2018 ETELVINA ALFORD MD Ot I48.91 UNSPECIFIED ATRIAL FIBRILLATION 07/27/2018 ETELVINA ALFORD MD Ot J44.9 CHRONIC OBSTRUCTIVE PULMONARY DISEASE, U 07/27/2018 ETELVINA ALFORD MD Ot K21.9 GASTRO-ESOPHAGEAL REFLUX DISEASE WITHOUT 07/27/2018 ETELVINA ALFORD MD Ot R07.89 OTHER CHEST PAIN 07/27/2018 ETELVINA ALFORD MD Ot Z79.01 [facility]FP (CURRENT) USE OF ANTICOAGULANT 07/27/2018 ETELVINA ALFORD MD Ot Z79.51 RENT CONTROL OFFICE MANAGER (CURRENT) USE OF INHALED STERO 07/27/2018 ETELVINA ALFORD MD Ot Z79.82 RENT CONTROL OFFICE MANAGER (CURRENT) USE OF ASPIRIN 07/27/2018 ETELVINA ALFORD MD Ot Z87.442 PERSONAL HISTORY OF URINARY CALCULI 07/27/2018 ETELVINA ALFORD MD Ot Z87.448 PERSONAL HISTORY OF OTHER DISEASES OF UR 07/27/2018 ETELVINA ALFORD MD Ot Z88.8 ALLERGY STATUS TO OT DRUG/MEDS/BIOL SUB 07/27/2018 ETELVINA ALFORD MD Ot 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 ANGIOPLASTY IMPLANT 07/27/2018 ETELVINA ALFORD MD Ot Z98.890 OTHER SPECIFIED POSTPROCEDURAL STATES 07/28/2018 TIMO CHAU MD Ot B17.9 ACUTE VIRAL HEPATITIS, UNSPECIFIED 07/28/2018 TIMO CHAU MD, Ot E78.00 PURE HYPERCHOLESTEROLEMIA, UNSPECIFIED 07/28/2018 TIMO CHAU MD Ot I10 ESSENTIAL (PRIMARY) HYPERTENSION 07/28/2018 TIMO CHAU MD, Ot I25.10 ATHSCL HEART DISEASE OF [place] CORONARY 07/28/2018 TIMO CHAU MD Ot I48.91 UNSPECIFIED ATRIAL FIBRILLATION 07/28/2018 TIMO CHAU MD, Ot J44.9 CHRONIC OBSTRUCTIVE PULMONARY DISEASE, U 07/28/2018 TIMO CHAU MD, Ot K21.9 GASTRO-ESOPHAGEAL REFLUX DISEASE WITHOUT 07/28/2018 TIMO CHAU MD Ot 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 07/28/2018 TIMO CHAU MD, Ot N40.0 BENIGN PROSTATIC HYPERPLASIA WITHOUT LOW 07/28/2018 TIMO CHAU MD, Ot R74.8 ABNORMAL LEVELS OF OTHER SERUM ENZYMES 07/28/2018 TIMO CHAU MD Ot Z79.01 RENT CONTROL OFFICE MANAGER (CURRENT) USE OF ANTICOAGULANT 07/28/2018 TIMO CHAU MD Ot Z79.51 RENT CONTROL OFFICE MANAGER (CURRENT) USE OF INHALED STERO 07/28/2018 TIMO CHAU MD, Ot Z79.82 RENT CONTROL OFFICE MANAGER (CURRENT) USE OF ASPIRIN 07/28/2018 TIMO CHAU MD Ot Z87.442 PERSONAL HISTORY OF URINARY CALCULI 07/28/2018 TIMO CHAU MD Ot Z87.448 PERSONAL HISTORY OF OTHER DISEASES OF UR 07/28/2018 TIMO CHAU MD, Ot Z87.891 PERSONAL HISTORY OF NICOTINE DEPENDENCE 07/28/2018 TIMO CHAU MD Ot Z88.8 ALLERGY STATUS TO [facility] DRUG/MEDS/BIOL SUB 07/28/2018 TIMO CHAU MD Ot 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 ANGIOPLASTY IMPLANT 07/28/2018 TIMO CHAU MD Ot Z98.890 OTHER SPECIFIED POSTPROCEDURAL STATES 07/31/2018 ETELVINA ALFORD MD Ot E78.00 PURE HYPERCHOLESTEROLEMIA, UNSPECIFIED 07/31/2018 ETELVINA ALFORD MD Ot I10 ESSENTIAL (PRIMARY) HYPERTENSION 07/31/2018 ETELVINA ALFORD MD Ot I25.10 ATHSCL HEART DISEASE OF [place] CORONARY 07/31/2018 ETELVINA ALFORD MD Ot I48.91 UNSPECIFIED ATRIAL FIBRILLATION 07/31/2018 ETELVINA ALFORD MD Ot J44.9 CHRONIC OBSTRUCTIVE PULMONARY DISEASE, U 07/31/2018 ETELVINA ALFORD MD Ot K21.9 GASTRO-ESOPHAGEAL REFLUX DISEASE WITHOUT 07/31/2018 ETELVINA ALFORD MD Ot R07.89 OTHER CHEST PAIN 07/31/2018 ETELVINA ALFORD MD Ot Z79.01 [facility]FP (CURRENT) USE OF ANTICOAGULANT 07/31/2018 ETELVINA ALFORD MD Ot Z79.51 RENT CONTROL OFFICE MANAGER (CURRENT) USE OF INHALED STERO 07/31/2018 ETELVINA ALFORD MD Ot Z79.82 [facility]FP (CURRENT) USE OF ASPIRIN 07/31/2018 ETELVINA ALFORD MD Ot Z87.442 PERSONAL HISTORY OF URINARY CALCULI 07/31/2018 ETELVINA ALFORD MD Ot Z87.448 PERSONAL HISTORY OF OTHER DISEASES OF UR 07/31/2018 ETELVINA ALFORD MD Ot Z88.8 ALLERGY STATUS TO [facility] DRUG/MEDS/BIOL SUB 07/31/2018 ETELVINA ALFORD MD Ot 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 ANGIOPLASTY IMPLANT 07/31/2018 ETELVINA ALFORD MD Ot Z98.890 OTHER SPECIFIED POSTPROCEDURAL STATES 08/02/2018 ETELVINA ALFORD MD Ot E78.00 PURE HYPERCHOLESTEROLEMIA, UNSPECIFIED 08/02/2018 ETELVINA ALFORD MD Ot I10 ESSENTIAL (PRIMARY) HYPERTENSION 08/02/2018 ETELVINA ALFORD MD Ot I25.10 ATHSCL HEART DISEASE OF [place] CORONARY 08/02/2018 ETELVINA ALFORD MD Ot I48.91 UNSPECIFIED ATRIAL FIBRILLATION 08/02/2018 ETELVINA ALFORD MD Ot J44.9 CHRONIC OBSTRUCTIVE PULMONARY DISEASE, U 08/02/2018 ETELVINA ALFORD MD Ot K21.9 GASTRO-ESOPHAGEAL REFLUX DISEASE WITHOUT 08/02/2018 ETELVINA ALFORD MD Ot R07.89 OTHER CHEST PAIN 08/02/2018 ETELVINA ALFORD MD Ot Z79.01 [facility]FP (CURRENT) USE OF ANTICOAGULANT 08/02/2018 ETELVINA ALFORD MD Ot Z79.51 [facility]FP (CURRENT) USE OF INHALED STERO 08/02/2018 ETELVINA ALFORD MD Ot Z79.82 [facility] (CURRENT) USE OF ASPIRIN 08/02/2018 EETLVINA ALFORD MD Ot Z87.442 PERSONAL HISTORY OF URINARY CALCULI 08/02/2018 ETELVINA ALFORD MD Ot Z87.448 PERSONAL HISTORY OF OTHER DISEASES OF UR 08/02/2018 ETELVINA ALFORD MD Ot Z88.8 ALLERGY STATUS TO [facility]TH DRUG/MEDS/BIOL SUB 08/02/2018 ETELVINA ALFORD MD Ot 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 ANGIOPLASTY IMPLANT 08/02/2018 PRASHANTH EUCEDA ETELVINA Shine Ot Z98.890 OTHER SPECIFIED POSTPROCEDURAL STATES 08/10/2018 TOMAS EUCEDA, BRYON Land Ot R10.11 RIGHT UPPER QUADRANT PAIN 08/24/2018 ORVILLE SULLIVAN DO Ot Z01.818 ENCOUNTER FOR OTHER PREPROCEDURAL EXAMIN 08/27/2018 ORVILLE SULLIVAN DO Ot E78.5 HYPERLIPIDEMIA, UNSPECIFIED 08/27/2018 ORVILLE SULLIVAN DO Ot I10 ESSENTIAL (PRIMARY) HYPERTENSION 08/27/2018 ORVILLE SULLIVAN DO Ot I25.119 ATHSCL HEART DISEASE OF [place] COR ART W 08/27/2018 ORVILLE SULLIVAN DO Ot K80.64 CALCULUS OF GB AND BILE DUCT W CHRONIC C 08/27/2018 ORVILLE SULLIVAN DO Ot Z11.2 ENCOUNTER FOR SCREENING FOR OTHER BACTER 08/27/2018 ORVILLE SULLIVAN DO Ot Z79.82 RENT CONTROL OFFICE MANAGER (CURRENT) USE OF ASPIRIN 08/27/2018 ORVILLE SULLIVAN DO Ot Z79.899 OTHER RENT CONTROL OFFICE MANAGER (CURRENT) DRUG THERAPY 08/27/2018 ORVILLE SULLIVAN DO Ot Z87.891 PERSONAL HISTORY OF NICOTINE DEPENDENCE 08/27/2018 ORVILLE SULLIVAN DO Ot 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 ANGIOPLASTY IMPLANT 08/29/2018 ORVILLE SULLIVAN DO Ot E78.5 HYPERLIPIDEMIA, UNSPECIFIED 08/29/2018 ORVILLE SULLIVAN DO Ot I10 ESSENTIAL (PRIMARY) HYPERTENSION 08/29/2018 ORVILLE SULLIVAN DO Ot I25.119 ATHSCL HEART DISEASE OF [place] COR ART W 08/29/2018 ORVILLE SULLIVAN DO Ot K80.64 CALCULUS OF GB AND BILE DUCT W CHRONIC C 08/29/2018 ORVILLE SULLIVAN DO Ot Z11.2 ENCOUNTER FOR SCREENING FOR OTHER BACTER 08/29/2018 ORVILLE SULLIVAN DO Ot Z79.82 [facility] (CURRENT) USE OF ASPIRIN 08/29/2018 ROVILLE SULLIVAN DO Ot Z79.899 OTHER [facility] (CURRENT) DRUG THERAPY 08/29/2018 ORVILLE SULLIVAN DO Ot Z87.891 PERSONAL HISTORY OF NICOTINE DEPENDENCE 08/29/2018 ORVILLE SULLIVAN DO Ot Z95.5 PRESENCE OF [...] resistant Staphylococcus aureus (MRSA) screening culture NEG NR Complete blood count (CBC) with automated white [...] or plasma troponin i.cardiac measurement (mass/volume) - 12/07/18 10:59 Serum or plasma troponin i.cardiac measurement [...] Manual blood lymphocytes/100 leukocytes 6 % NRG Methicillin resistant Staphylococcus aureus (MRSA) screening culture - 10:00 Methicillin resistant Staphylococcus aureus (MRSA) screening culture NEG NRG Encounters ACCT No. Visit Date/Time Discharge Status Pt. Type Provider Facility Loc./Unit Complaint [id number] 08/27/2018 09:41:00 08/27/2018 15:30:00 DIS Outpatient ORVILLE SULLIVAN DO [facility] CHOLEDOCHOLITHIASIS [id number] 08/23/2018 05:41:00 08/23/2018 13:02:00 DIS Outpatient ORVILLE SULLIVAN DO [facility] PREOP CHOLEDOCHOLIATHIASIS [id number] 07/28/2018 09:12:00 07/28/2018 11:00:00 DIS Outpatient ISAC EUCEDA, TIMO Knight [facility] 4TH RULE OUT CHEST PAIN [id number] 07/27/2018 09:32:00 07/27/2018 12:07:00 DIS Emergency ETELVINA ALFORD MD [facility] ER CHEST/ABD DISCOMFORT [id number] 07/18/2018 07:43:00 07/18/2018 23:59:59 CLS Outpatient BRYON MARIN MD [facility] RAD RUQ PAIN [id number] 05/27/2018 02:30:00 05/27/2018 03:40:00 DIS Emergency ETELVINA ALFORD MD [facility] ER POST HERNIA SURGERY/ABD PAIN [id number] 05/24/2018 07:52:00 05/24/2018 13:30:00 DIS Outpatient ORVILLE SULLIVAN DO [facility] LEFT INGUINAL HERNIA [id number] 05/21/2018 10:33:00 05/21/2018 11:13:00 DIS Outpatient ORVILLE SULLIVAN DO [facility] PREOP LEFT INGUINAL HERNIA REPAIR [id number] 03/09/2017 07:30:00 03/09/2017 14:07:00 DIS Outpatient ROVILLE SULLIVAN DO [facility] RIGHT INGUINAL HERNIA [id number] 03/06/2017 12:40:00 03/06/2017 13:31:00 DIS Outpatient ORVILLE SULLIVAN DO [facility] PREOP RIGHT INGUINAL HERNIA REPAIR [id number] 02/25/2017 12:23:00 02/25/2017 17:15:00 DIS Emergency DEQUAN JAMISON [facility] ER HERNIA [id number] 08/24/2016 09:59:00 08/24/2016 23:59:59 CLS Outpatient ZURI HENNESSY APRN [facility] RT CHRONIC COUGH [id number] 08/11/2016 09:46:00 08/11/2016 23:59:59 CLS Outpatient ZURI HENNESSY APRN [facility] RAD CHRONIC COUGH [id number] 07/15/2015 23:20:00 07/16/2015 01:39:00 DIS Emergency SISI ALCALA DO [facility] ER CHEST CONGESTION [id number] 11/13/2013 12:49:00 11/13/2013 23:59:59 CLS Outpatient BROOKE EUCEDA, DEANNA Shine [facility] CARD ATRIAL FIBRILLATION [id number] 08/23/2013 16:26:00 08/23/2013 18:22:00 DIS Emergency FRANNY STAUFFER MD [facility] ER FALL,RIB PAIN [id number] 10/03/2018 07:59:00 ACT Emergency JOAO EUCEDA, SHRAVAN Land [facility] ER LT HAND LAC [id number] 06/13/2013 13:19:00 06/13/2013 23:59:59 CLS Outpatient GOGO KELLY DO
== END 2018-10-03 10:09 | disposition home or self-care (01) ==
LOC: EDUNIT# 07:57 → ER 07:59
DX: S61.412A Laceration without foreign body of left hand, initial encounter (principal); J44.9 Chronic obstructive pulmonary disease, unspecified; I48.91 Unspecified atrial fibrillation; I25.10 Atherosclerotic heart disease of native coronary artery without angina pectoris; I10 Essential (primary) hypertension; E78.00 Pure hypercholesterolemia, unspecified; Z23 Encounter for immunization; Z87.442 Personal history of urinary calculi; Z87.448 Personal history of other diseases of urinary system; Z88.8 Allergy status to other drugs, medicaments and biological substances; Z79.82 Long term (current) use of aspirin; Z87.891 Personal history of nicotine dependence; Z95.5 Presence of coronary angioplasty implant and graft; Z98.890 Other specified postprocedural states; W55.89XA Other contact with other mammals, initial encounter
CPT/HCPCS: 12002; 90715

== ENCOUNTER → 2019-09-13 | Outpatient (CLI) | payer MEDICARE ==
[~2019-09-13] MED LIST changes: +AMOX-358 PO; +OMEP40CA27 PO; -OMEP40CA36 PO
--- NOTE | 2019-09-13 10:42 | Diagnostic Imaging Report ---
PROCEDURE: MRI left upper extremity without contrast. TECHNIQUE: Multiplanar, multisequence non contrast-enhanced MRI of the left upper extremity was accomplished. INDICATION: Chronic left shoulder pain. COMPARISON: None FINDINGS: No acute fracture or dislocation is seen in the left shoulder. Alignment is normal. There is no significant joint effusion. The supraspinatus tendon demonstrates a small low-grade partial-thickness tear at the footplate measuring 7 mm at the articular surface. There is also low-grade partial-thickness tearing at the undersurface of the distal infraspinatus tendon. The teres minor tendon is intact. The subscapularis tendon is intact. There is no muscular atrophy. The long head of the biceps tendon appears normal in course and signal. There is degeneration of the glenoid labrum, with a small inferior para labral cyst measuring 3 mm. The acromion has a curved undersurface without hooking. The coracoclavicular and coracoacromial ligaments are intact. There are moderate degenerative changes at the acromioclavicular joint. The soft tissues about the left shoulder otherwise unremarkable. IMPRESSION: 1. Low-grade partial-thickness tears of the left rotator cuff with no high-grade partial-thickness or full-thickness tear. 2. Extensive degeneration of the glenoid labrum with small inferior para labral cyst. 3. Moderate degenerative changes in the acromioclavicular joint. Dictated by: Dictated on workstation # [id number]
== END ==
LOC: RAD 09:15
PROVIDERS: ATTEND Physical Medicine & Rehabilitation
DX: M75.52 Bursitis of left shoulder (principal); M75.82 Other shoulder lesions, left shoulder; M75.102 Unspecified rotator cuff tear or rupture of left shoulder, not specified as traumatic; M19.012 Primary osteoarthritis, left shoulder; S43.432A Superior glenoid labrum lesion of left shoulder, initial encounter
CPT/HCPCS: 73221

== ENCOUNTER → 2021-01-14 | Outpatient (CLI) | payer MEDICARE ==
[~2021-01-14] MED LIST changes: +CYCL10TA9 PO; -FOLI1TAB24 PO; +FOLI1TAB33 PO; -LISI-556 PO; +LISI-729 PO; -LISI10TA2 PO; +LISI10TA25 PO
== END ==
LOC: CARD 11:38
PROVIDERS: ATTEND Internal Medicine Cardiovascular Disease
DX: I11.9 Hypertensive heart disease without heart failure (principal); I25.10 Atherosclerotic heart disease of native coronary artery without angina pectoris
CPT/HCPCS: 93306

== ENCOUNTER → 2021-01-27 | Outpatient (CLI) | payer MEDICARE ==
[~2021-01-27] MED LIST changes: +CATHETER FLUSH 10 ML SYR IV PRN; +REGADENOSON 0.4 MG/5 ML SYR (LEXISCAN) IV ONE
[2021-01-27 13:33] VITALS: BP 142/75
--- NOTE | 2021-01-27 15:51 | Cardiology Stress Test Report ---
Stress Test Report Date of Procedure/Referring: Date of Procedure: Jan 27, 2021 PCP Lissy Escobar MD Admitting Physician Elieser Atkinson MD Indications: HTN Baseline Heart Rate: 61 Baseline Blood Pressure: Blood Pressure Systolic: 142 Blood Pressure Diastolic: 75 Baseline Vitals Vital Signs Date Time Temp Pulse Resp B/P (MAP) Pulse Ox O2 Delivery O2 Flow Rate FiO2 01/27/21 13:33 66 18 142/75 (97) 98 Room Air Baseline EKG: Baseline EKG: NSR Summary After explaining the procedure to the patient, he signed a consent and then brought to the stress nuclear laboratory. Patient received 0.4 mg Lexiscan for stress test, ECG, heart rate and blood pressure were monitored continuously. Resting and stress dose of radio tracer were injected, imaging was acquired and reviewed in short axis, horizontal long axis and vertical long axis views. TID: 0.97 SSS: 4 SDS: 4 EF: 78 1. Patient was unable to exercise beyond 6 minutes 43 seconds on standard Adam protocol, did not achieve target heart rate, test converted to Lexiscan Myoview stress test 2. Patient tolerated Lexiscan well 3. Diaphragmatic attenuation with typical male pattern, no significant ischemia or infarction on SPECT images 4. Normal left ventricular size, EF 78% LISSY ESCOBAR MD Jan 27, 2021 15:51
== END ==
LOC: CARD 12:09
PROVIDERS: ATTEND Internal Medicine Cardiovascular Disease
DX: I10 Essential (primary) hypertension (principal); I25.10 Atherosclerotic heart disease of native coronary artery without angina pectoris
CPT/HCPCS: 78452; 93017; A9502

== ENCOUNTER 2022-03-18 08:14 | Day surgery (SDC) | payer MEDICARE ==
[~2022-03-18] VITALS: Ht 177.8 cm; Wt 74.1 kg
[~2022-03-18 08:14] MED LIST changes: -CATHETER FLUSH 10 ML SYR IV PRN; +CYCL10TA25 PO; -CYCL10TA9 PO; -LISI-729 PO; +LISI5TAB20 PO; -OMEP40CA27 PO; +OMEP40CA6 PO; -REGADENOSON 0.4 MG/5 ML SYR (LEXISCAN) IV ONE
[2022-03-18] MEDS ORDERED: LIDOCAINE 1% INJ 20 ML VIAL ONE (08:17)
[2022-03-18] MEDS ORDERED: NS IV 1000 ML 2,000 ML ONE (08:18)
[2022-03-18] MEDS ORDERED: HEParin (CATH LAB) 1,000 ML IV ONE (08:18)
[2022-03-18] MEDS ORDERED: ceFAZolin INJECTION 1,000 MG ONE (08:30)
[2022-03-18] MEDS ORDERED: NS IV 1000 ML 1,000 ML IV SCH ×2 (08:30→12:30)
[2022-03-18 08:39] VITALS: BP 182/91
[2022-03-18 09:01] LABS: BILIRUBIN,URINE NEGATIVE (NEGATIVE); CLARITY,URINE CLEAR; COLOR,URINE YELLOW; GLUCOSE, URINE (UA) NEGATIVE (NEGATIVE); KETONES,URINE TRACE (NEGATIVE); LEUKOCYTE ESTERASE ,URINE NEGATIVE (NEGATIVE); NITRITE,URINE NEGATIVE (NEGATIVE); PH,URINE 5.5 (5-9); PROTEIN,URINE NEGATIVE (NEGATIVE)
[2022-03-18 09:01] LABS: HEMATOCRIT 47 % (40-54); HEMOGLOBIN 15.9 g/dL (13.3-17.7); MEAN CORPUSCULAR HEMOGLOBIN 33 pg (25-34); MEAN CORPUSCULAR HGB CONC 34 g/dL (32-36); MEAN CORPUSCULAR VOLUME 98 fL (80-99); MEAN PLATELET VOLUME 9.8 fL (9.0-12.2); PLATELET COUNT 165 10^3/uL (130-400); WHITE BLOOD COUNT 7.3 10^3/uL (4.3-11.0)
--- NOTE | 2022-03-18 09:08 | Diagnostic Imaging Report ---
EXAMINATION: Chest 1 view HISTORY: Complete heart block. COMPARISON: 07/27/2018. FINDINGS: The lung volumes are normal. No focal consolidation is seen. Mildly prominent interstitial markings are seen in the mid and lower lungs bilaterally. No large pleural effusion or pneumothorax is seen. The cardiomediastinal silhouette is prominent. There is calcified aortic atherosclerotic plaque. No acute osseous abnormality is seen. IMPRESSION: 1. Cardiomegaly. Scattered prominent interstitial markings may suggest interstitial edema. No focal consolidation or pleural effusion. Dictated by: Dictated on workstation # [id number]
[2022-03-18] MEDS ORDERED: AZIT250T12 PO (09:12)
[2022-03-18] MEDS ORDERED: BUDE10.2 IH (09:12)
[2022-03-18] MEDS ORDERED: HYDR25TA4 PO (09:12)
[2022-03-18] MEDS ORDERED: RT-ALBUINH INH (09:12)
[2022-03-18] MEDS ORDERED: LEVO25CA4 PO (09:12)
[2022-03-18 09:14] LABS: BACTERIA,URINE NEGATIVE /HPF; WBC,URINE RARE /HPF
[2022-03-18 09:16] LABS: INR 0.9 (0.8-1.4); PROTHROMBIN TIME PATIENT 12.9 SEC (12.2-14.7)
[2022-03-18 09:25] LABS: ALBUMIN 4.2 GM/DL (3.2-4.5); BILIRUBIN,TOTAL 1.7 MG/DL (0.1-1.0); CALCIUM 9.7 MG/DL (8.5-10.1); CREATININE SERUM 1.41 MG/DL (0.60-1.30); POTASSIUM 4.5 MMOL/L (3.6-5.0); TOTAL PROTEIN 7.6 GM/DL (6.4-8.2)
--- NOTE | 2022-03-18 10:13 | Conscious Sedation/ASA ---
Conscious Sedation Pre-Proced Time 10:13 ASA Score 3 For ASA 3 and 4: Consider anesthesia and medical clearance. Also, for patients with a history of failed moderate sedation consider anesthesia. Airway Lungs Heart ASA score ASA 1: a normal healthy patient ASA 2: a patient with a mild systemic disease (mid diabetes, controlled hypertension, obesity x ASA 3: a patient with a severe systemic disease that limits activity (angina, COPD, prior Myocardial infarction) ASA 4: a patient with an incapacitating disease that is a constant threat to life (CHF, renal failure) ASA 5: a moribund patient not expected to survive 24 hrs. (ruptured aneurysm) ASA 6: a declared brain- patient whose organs are being harvested. For emergent operations, add the letter E after the classification Mallampati Classification Grade 3 Sedation Plan Analgesia, Amnesia, Plan communicated to team members, Discussed options with patient/fam, Discussed risks with patient/fam The patient is an appropriate candidate to undergo the planned procedure, sedation, and anesthesia. The patient immediately re-assessed prior to indication. LISSY PANIAGUA MD Mar 18, 2022 10:13
[2022-03-18] MEDS ORDERED: MIDAZOLAM 5 MG/5 ML (VERSED) VIAL ONE ×2 (10:18→11:19)
[2022-03-18] MEDS ORDERED: fentaNYL INJ 100 MCG/2 ML AMP ONE ×2 (10:18→11:19)
--- NOTE | 2022-03-18 12:22 | Permanent Pacemaker Implant ---
Dual Chamber Pacemaker Implant PROCEDURE PHYSICIAN: Lissy Escobar DUAL CHAMBER PACEMAKER IMPLANTATION: DATE OF PROCEDURE: 03/18/22 INDICATION: Complete heart block PREOPERATIVE DIAGNOSIS: Complete heart block POSTOPERATIVE DIAGNOSIS: Complete heart block HISTORY: Dual-chamber permanent pacemaker was recommended. PROCEDURE PERFORMED: 1. Dual-chamber permanent pacemaker implantation. 2. Fluoroscopy. 3. Central venous access. ANESTHESIA: Local anesthesia, conscious sedation. COMPLICATIONS: None. ESTIMATED BLOOD LOSS:20 mL. SPECIMENS: None. ORAL ANTICOAGULATION: None. FLUOROSCOPY TIME: FLUOROSCOPY DOSE: CONTRAST DOSE: PROCEDURE DETAILS: The patient is a 82 male with history of ablation, seen in the office with complete heart block and bradycardia, symptomatic, complaining of fatigue and loss of energy. Dual-chamber pacemaker implant was advised. And after all of the patients questions were answered, the patient was brought to the EP Lab. The patient's left chest was prepped and draped in sterile fashion. A 2 inch horizontal incision was made 1 cm below the clavicle and dissection carried down to the pectoralis fascia. Using the modified Seldinger technique and under fluoroscopy guidance, the anterior aspect of the left axillary vein was accessed 2 times. The J wires were secured to the drapes with a mosquito clamp. A 7-Gabonese sheath was introduced over one of the J-wires. The RV lead was then inserted. The RV lead was directed across the tricuspid valve to the apical septal portion of the right ventricle. The position was checked in JORY and DHALIWAL views. The screw was deployed and the lead connected to the programmer engineering and scientific. Close sensing and pacing thresholds were obtained. Diaphragmatic pacing was ruled out. The lead was secured with 2-0 silk ties to the underlying muscle and fascia. Next, a 7-Gabonese sheath was introduced through the remaining J-wire. An atrial lead was then introduced and guided to the level of the right appendage. The screw was deployed and the lead was connected to the interrogator. Good sensing and pacing thresholds were obtained. Diaphragmatic pacing was ruled out. The leads were secured with 2-0 silk ties to the underlying muscle and fascia. The leads were connected to the device in a hermetic fashion. The device and leads were placed in the pocket. Aggressive irrigation with saline solution was done. The device was secured to the underlying muscle and fascia with a 2-0 silk tie. interrogation of the device revealed good integrity of all the leads and good connections. The wound was then closed using 2 layers. The first layer was interrupted 2-0 absorbable Vicryl suture. The last layer was a single subcuticular layer with 4- 0 Vicryl suture. Half inch Steri-Strips and a small dressing were then applied to the wound. The patient tolerated the procedure well and was returned to the recovery room in stable condition with stable vital signs. DEVICE INFORMATION: JAQUI XT DR MRI [id number] RA LEAD: [id number] RV LEAD: [id number] PER-OPERATIVE DEVICE INTERROGATION: Good sensing and capture activity IMMEDIATE POSTOPERATIVE DEVICE INTERROGATION: Right atrium, P wave 1 mV, pacing impedance 494, threshold 0.5 V at 0.4 ms Right ventricle R wave 5.8 mV, impedance 779, threshold 0.75 V at 0.4 ms PLAN: The patient transferred to the ICU. We will continue with two more doses of IV antibiotics. We will check a chest x-ray and interrogate the device in the morning. The patient will continue on oral antibiotics for 5 days. CONCLUSION: Successful dual-chamber pacemaker implantation with no complication FINAL DIAGNOSIS: Complete heart block Bradycardia Paroxysmal atrial fibrillation Hypertension LISSY ESCOBAR MD Mar 18, 2022 12:22
[2022-03-18] MEDS ORDERED: PATIENT MAY USE OWN MEDS, ALL PO SCH (12:30)
[2022-03-18] MEDS ORDERED: RT-ALBUTEROL SULF 2.5 MG/3 ML PRE-MIX VIAL INH PRN (12:30)
[2022-03-18] MEDS ORDERED: LEVO25TA5 PO (14:22)
[2022-03-18] MEDS ORDERED: SILD20TA14 PO (14:22)
--- NOTE | 2022-03-18 15:03 | Diagnostic Imaging Report ---
INDICATION: Status post pacemaker placement. COMPARISON: Earlier same day FINDINGS: Single frontal radiographic view of the chest was obtained and demonstrates stable mild cardiomegaly. There is increased cephalization of pulmonary vasculature. No large effusion or pneumothorax is seen. Left-sided dual-lead pacemaker is now identified. Osseous structures show no gross acute abnormalities. IMPRESSION: 1. New left-sided pacemaker. No pneumothorax. 2. Increased cephalization of the pulmonary vasculature. This may be related to supine positioning. Progression of vascular congestion is also consideration. Dictated by: Dictated on workstation # [id number]
[2022-03-18] MEDS: oxyCODONE/APAP 5/325MG (PERCOCET 5) TABLET PO PRN ×3 (15:18→23:15)
[2022-03-18] MEDS: ceFAZolin INJECTION 1,000 MG in NS (IVPB) 50 ML IV SCH ×2 (16:32→22:49)
[2022-03-18 20:00] VITALS: BP 117/67
[2022-03-18] MEDS ORDERED: NON-FORMULARY MEDICATION 1 EA EA (Budesonide/Formoterol Fumarate (Symbicort 160-4.5 Mcg In IH SCH (21:00)
[2022-03-19] VITALS: BP 136/78
[2022-03-19 03:31] VITALS: BP 143/83
[2022-03-19] MEDS: oxyCODONE/APAP 5/325MG (PERCOCET 5) TABLET PO PRN ×2 (04:53→08:47)
[2022-03-19] MEDS ORDERED: LEVOTHYROXINE 25 MCG (LEVOTHROID) TAB PO SCH (06:30)
[2022-03-19 07:28] VITALS: BP 143/83
[2022-03-19] MEDS: ceFAZolin INJECTION 1,000 MG in NS (IVPB) 50 ML IV SCH (08:35)
[2022-03-19] MEDS ORDERED: PATIENT MAY USE OWN MEDS, ALL MC SCH (09:00)
[2022-03-19] MEDS ORDERED: ASPIRIN 325 MG (5 GR) TABLET PO SCH ×2 (09:00→09:15)
[2022-03-19] MEDS ORDERED: AZITHROMYCIN 250 MG TAB (ZITHROMAX) PO SCH ×2 (09:00→09:15)
[2022-03-19] MEDS ORDERED: NON-FORMULARY MEDICATION 1 EA EA (Levothyroxine Sodium (Levothyroxine) 25 MCG) PO SCH (09:00)
[2022-03-19] MEDS ORDERED: AtorvaSTATin TABLET 10 MG TABLET PO SCH ×2 (09:00→09:15)
[2022-03-19] MEDS ORDERED: CEFU500T63 PO (10:08)
--- NOTE | 2022-03-19 10:08 | Discharge Inst-Post CATH ---
Discharge Inst-CATH/EP Problems Reviewed?: Yes Post Cardiac Cath/EP D/C Inst Follow Up/Plan Appointment with Dr Escobar in one week <b>CARDIAC CATH/EP PROCEDURE DISCHARGE INSTRUCTIONS</b> ACTIVITY * Go Home directly and rest. * Limit activity of the leg (or wrist if it was used) for 7 days including aerobics, swimming, jogging, bicycling, etc. * Restrict stair-climbing for 7 days if possible, if not, climb up with your non-cath leg, then bring together on the same step. * Avoid lifting, pushing, pulling or excessive movement of the affected extremity for 7 days. * Customary sexual activity may be resumed after 2 days-use caution not to use a position that strains or causes pain to the affected extremity. * No driving for 24 hours. * NO SMOKING. * Avoid straining for bowel movements for 7 days. * Gentle walking on level ground is allowed. * Returning to work will depend on the type of procedure and the results. Your doctor will discuss this with you. CALL YOUR DOCTOR FOR ANY OF THE FOLLOWING: *If bleeding from the puncture site occurs- Apply gentle pressure to site with clean cloth and call your doctor or EMS. * If a knot or lump forms under the skin, increases in size, or causes pain. * If bruising appears to be worsening or moving further down your leg instead of disappearing. * Temperature above 101 F. CARE OF YOUR GROIN INCISION; * Bruising or purple discoloration of the skin near the puncture site is common. * You may shower only, no bathtub bathing for 5 days. Be careful to avoid slipping as your leg may feel stiff. * If a closure device was used on your femoral artery, please see the attached guide regarding care of the device and your leg. * Leave dressing on FOR 24 hours. CARE OF YOUR WRIST INCISION; * Bruising or purple discoloration of the skin near the puncture site is common. * You may shower. * DO NOT submerge wrist. * Leave dressing on FOR 24 hours. LISSY ESCOBAR MD Mar 19, 2022 10:08
[2022-03-19 11:56] VITALS: BP 147/93
--- NOTE | 2022-03-19 12:16 | Cardiology Progress Note ---
Subjective Date Seen by Provider: Mar 19, 2022 Time Seen by Provider: 12:14 Subjective/Events-last exam Patient was seen at bedside, laying down comfortably. Feeling better Wound is healing well. Review of Systems General: No Chills, No Night Sweats, No Fatigue, No Malaise, No Appetite, No Other HEENT: No Head Aches, No Visual Changes, No Eye Pain, No Ear Pain, No Dysphasia, No Sinus Congestion, No Post Nasal Drip, No Sore Throat, No Other Pulmonary: No Dyspnea, No Cough, No Pleuritic Chest Pain, No Other Cardiovascular: No: Chest Pain, Palpitations, Orthopnea, Paroxysmal Noc. Dyspnea, Edema, Lt Headedness, Other Objective-Cardiology Exam Last Set of Vital Signs Vital Signs 03/19/22 03/19/22 09:00 11:56 Temp 36.3 Pulse 60 Resp 13 B/P (MAP) 147/93 (111) Pulse Ox 98 O2 Delivery Room Air I&O Intake and Output 03/19/22 00:00 Intake Total 450 ml Output Total 200 ml Balance 250 ml Intake Oral 350 ml IV Total 100 ml Output Urine Total 200 ml General: Alert, Oriented X3, Cooperative HEENT: Atraumatic, PERRLA Neck: Supple, No JVD, No Thyromegaly Lungs: Clear to Auscultation, Normal Air Movement Heart: Regular Rate, Normal S1, Normal S2, No Murmurs Abdomen: Normal Bowel Sounds, Soft, No Tenderness, No Hepatosplenomegaly, No Masses Extremities: No Clubbing, No Cyanosis, No Edema, Normal Pulses, No Tenderness/Swelling Skin: No Rashes, No Breakdown, No Significant Lesion Neuro: Normal Gait, Normal Speech, Strength at 5/5 X4 Ext, Normal Tone, Sensation Intact Psych/Mental Status: Mental Status NL, Mood NL A/P-Cardiology Admission Diagnosis Complete heart block Permanent pacemaker Paroxysmal atrial fibrillation Hypertension Assessment/Plan Complete heart block, status post dual-chamber pacemaker implantation with excellent results. Site is healing well. Hypertension, I will add low-dose beta-blockers and evaluate tolerance and response Paroxysmal atrial fibrillation/flutter, history of ablation done in [facility] by Dr. Rudolph lees in 2015 Coronary artery disease. History of stenting. Generalized weakness and fatigue, probably secondary to bradycardia, feeling better. Planning to discharge, educated in length about pacemaker care, I will arrange for follow-up in 1 week LISSY PANIAGUA MD Mar 19, 2022 12:16
[2022-03-19] MEDS ORDERED: MTP25TSR PO (12:20)
[2022-03-19] MEDS ORDERED: RT--FLUTICASONE/SALMETEROL 232-14 (AIRDUO RespiCLICK) IH SCH (21:00)
== END 2022-03-19 13:26 | disposition home or self-care (01) ==
LOC: CATH 08:14 → CSD 13:04 → CATH 03-19 13:26
PROVIDERS: ATTEND Internal Medicine Cardiovascular Disease
DX: I44.2 Atrioventricular block, complete (principal); I48.0 Paroxysmal atrial fibrillation; I10 Essential (primary) hypertension; I25.10 Atherosclerotic heart disease of native coronary artery without angina pectoris; E78.2 Mixed hyperlipidemia; I65.23 Occlusion and stenosis of bilateral carotid arteries; Z79.82 Long term (current) use of aspirin; Z87.891 Personal history of nicotine dependence
CPT/HCPCS: 33208; 71045; 80053; 80061; 81000; 85027; 85610; 85730; 87081; 93005 ×2; C1785; C1898 ×2; 36415

== ENCOUNTER → 2022-06-14 | Outpatient (CLI) | payer MEDICARE ==
[~2022-06-14] MED LIST changes: +AZIT250T12 PO; +BUDE10.2 IH; +CEFU500T63 PO; +HYDR25TA4 PO; +LEVO25CA4 PO; +LEVO25TA5 PO; +MTP25TSR PO; +RT-ALBUINH INH; +SILD20TA14 PO
--- NOTE | 2022-06-14 09:54 | Diagnostic Imaging Report ---
INDICATION: COPD exacerbation, shortness of breath over the past week. . TECHNIQUE: Two view chest 9:40 AM CORRELATION STUDY: 03/18/2022 FINDINGS: Left-sided pacemaker stable. Heart size borderline enlarged. Coronary artery stents are present. Vasculature unchanged. Calcification of the aortic arch. Hyperinflated lung rojas with rather prominent interstitial markings throughout the lungs. No infiltrate. No effusion. Mildly advanced degenerative changes through the thoracic spine. IMPRESSION: 1. Chronic changes of the lung parenchyma. No acute cardiopulmonary abnormality. Dictated by: Dictated on workstation # [id number]
== END ==
LOC: RAD 09:22
PROVIDERS: ATTEND Physician Assistant
DX: J44.1 Chronic obstructive pulmonary disease with (acute) exacerbation (principal)
CPT/HCPCS: 71046

== ENCOUNTER → 2022-09-23 | Outpatient (CLI) | payer MEDICARE ==
[~2022-09-23] MED LIST changes: +ALBU8.5H6 IH; -RT-ALBUINH IH
== END ==
LOC: CARD 14:27
PROVIDERS: ATTEND Physician Assistant
DX: I10 Essential (primary) hypertension (principal); I25.10 Atherosclerotic heart disease of native coronary artery without angina pectoris
CPT/HCPCS: 93306

== ENCOUNTER → 2023-02-13 | Outpatient (CLI) | payer MEDICARE ==
--- NOTE | 2023-02-13 17:33 | Diagnostic Imaging Report ---
INDICATION: Productive cough PA and lateral chest Patient has a dual-chamber pacemaker. Heart size and pulmonary vascularity are normal. Lungs are clear. There are no effusions or pneumothoraces. IMPRESSION: No acute abnormalities in the chest. Dictated by: Dictated on workstation # [id number]
== END ==
LOC: RAD 12:04
PROVIDERS: ATTEND Internal Medicine
DX: J44.1 Chronic obstructive pulmonary disease with (acute) exacerbation (principal); I10 Essential (primary) hypertension; I25.10 Atherosclerotic heart disease of native coronary artery without angina pectoris; M79.652 Pain in left thigh
CPT/HCPCS: 71046

== ENCOUNTER → 2023-04-25 | Outpatient (CLI) | payer MEDICARE ==
--- NOTE | 2023-04-25 17:44 | Diagnostic Imaging Report ---
EXAMINATION: Chest 2 view HISTORY: COPD COMPARISON: 02/13/2023 FINDINGS: There are moderate interstitial opacities in the lungs. No pleural effusion or pneumothorax. The heart size is normal. A pacemaker is present. IMPRESSION: 1. Moderate interstitial opacities in the lungs may represent edema or an atypical infection. Dictated by: Dictated on workstation # [id number]
== END ==
LOC: RAD 16:15
PROVIDERS: ATTEND Internal Medicine
DX: J44.1 Chronic obstructive pulmonary disease with (acute) exacerbation (principal)
CPT/HCPCS: 71046

== ENCOUNTER → 2023-05-05 | Outpatient (CLI) | payer MEDICARE ==
--- NOTE | 2023-05-05 14:17 | Diagnostic Imaging Report ---
COPD, acute exacerbation. EXAMINATION: 2 view chest 05/05/2023 COMPARISON: 04/25/2023 FINDINGS: Left-sided pacemaker unremarkable. Heart and pulmonary vasculature normal. Lungs demonstrate chronic findings with no infiltrates or effusions. No pneumothorax. IMPRESSION: 1. Chronic interstitial changes with no superimposed acute process appreciated. Dictated by: Dictated on workstation # [id number]
== END ==
LOC: RAD 08:33
PROVIDERS: ATTEND Internal Medicine
DX: J44.1 Chronic obstructive pulmonary disease with (acute) exacerbation (principal)
CPT/HCPCS: 71046

== ENCOUNTER → 2023-06-12 | Outpatient (CLI) | payer MEDICARE ==
--- NOTE | 2023-06-12 10:41 | Diagnostic Imaging Report ---
INDICATION: ACUTE COUGH COPD COMPARISON: 05/05/2023 FINDINGS: Frontal and lateral views of the chest demonstrate normal heart size and pulmonary vascularity. The lungs are show background chronic interstitial changes, but are otherwise clear. There is no focal consolidation, large effusion, no pneumothorax. The visualized osseous structures show no acute abnormalities. Left-sided dual-lead pacemaker is noted. IMPRESSION: 1. Background chronic interstitial changes, but no new acute cardiopulmonary process. Dictated by: Dictated on workstation # [id number]
== END ==
LOC: RAD 10:02
PROVIDERS: ATTEND Internal Medicine
DX: J44.9 Chronic obstructive pulmonary disease, unspecified (principal); M35.3 Polymyalgia rheumatica; I48.0 Paroxysmal atrial fibrillation
CPT/HCPCS: 71046